=== PATIENT | female | born 1940 | race Caucasian/White ===

== ENCOUNTER → 2017-02-18 15:28 | Outpatient (CLI) | payer MEDICARE, OTHER | END | disposition home or self-care (01) | LOC: D.MAMMO 08:00 | DX: Z12.31 Encounter for screening mammogram for malignant neoplasm of breast (principal) ==

== ENCOUNTER → 2017-08-19 10:29 | Outpatient (CLI) | payer MEDICARE, OTHER | END | disposition home or self-care (01) | LOC: D.MRI 10:29 | DX: M25.562 Pain in left knee (principal) ==

== ENCOUNTER → 2018-02-20 21:53 | Outpatient (CLI) | payer MEDICARE, OTHER | END | disposition home or self-care (01) | LOC: D.MAMMO 11:30 | DX: Z12.31 Encounter for screening mammogram for malignant neoplasm of breast (principal) ==

== ENCOUNTER 2018-03-05 10:48 | Emergency (ER) | payer MEDICARE, OTHER | END 2018-03-05 15:05 | disposition home or self-care (01) | LOC: D.ER 10:48 | DX: S01.81XA Laceration without foreign body of other part of head, initial encounter (principal); W01.0XXA Fall on same level from slipping, tripping and stumbling without subsequent striking against object, initial encounter; Y93.89 Activity, other specified; Y92.019 Unspecified place in single-family (private) house as the place of occurrence of the external cause; S00.83XA Contusion of other part of head, initial encounter; I10 Essential (primary) hypertension ==

== ENCOUNTER → 2018-04-03 23:46 | Outpatient (CLI) | payer MEDICARE, OTHER | END | disposition home or self-care (01) | LOC: D.MAMMO 09:30 | DX: R92.8 Other abnormal and inconclusive findings on diagnostic imaging of breast (principal) ==

== ENCOUNTER → 2018-06-12 06:47 | Outpatient (CLI) | payer MEDICARE, OTHER ==
[~2018-06-12] VITALS: Ht 170.2 cm; Wt 76.0 kg
--- NOTE | ~2018-06-12 | HEMODYNAMI ---
PATIENT:EDWIGE PALACIOS MEDICAL RECORD: [id number] : 38 LOCATION:[facility] ADMISSION DATE: 06/12/18 Generatedon:06/12/20189:37 Patient name: EDWIGE PALACIOS Patient #: [id number] SSN: : 1940 Date of study: 06/12/2018 Page: Of Hemodynamic Procedure Report Patient Data Patient Demographics Procedure consent was obtained First Name: EDWIGE Gender: Female Last Name: SUZANNE : 1940 Middle Initial: NATE Age: 78 year(s) Patient #: [id number] Race: Unknown Additional ID: [id number] Contact details Address: [address] [place] [address] ROAD State: [place] City: [place] Zip code: [address] Past Medical History Allergies Allergen Reaction Date Comments Reported Sulfa drugs 06/12/2018 Admission Admission Data Admission Date: 06/12/2018 Admission Time: 6:47 Procedure Procedure Types Cath Procedure Diagnostic Procedure LHC LHC w/Coronaries Sedation Charges Moderate Sedation up to 45 minutes PCI Procedure Coronary Stent Coronary Stent Initial Coronary Stent Additional Procedure Description Procedure Date Procedure Date: 06/12/2018 Procedure Start Time: 8:40 Procedure End Time: 9:36 Procedure Staff Name Function Rashad Ragland MD Performing Physician Evette Shah RT Monitor Joesph Larry RN Nurse Zen Cody RT Scrub Procedure Data Cath Procedure Fluoroscopy Diagnostic fluoroscopy Total fluoroscopy Time: time: 14.8 min 14.8 min Diagnostic fluoroscopy Total fluoroscopy dose: dose: 1617 mGy 1617 mGy Contrast Material Contrast Material Type Amount (ml) Isovue 300 193 Entry Location Entry Primary Successful Side Size Upsize Upsize Entry Closure Kam ccessful Closure Location (Fr) 1 (Fr) 2 (Fr) Remarks Device Remarks Radial Right 6 Fr Mechanical artery Short Compression Estimated blood loss: 10 ml Diagnostic catheters Device Type Used For End Catheter Placement DIAGNOSTIC Tulio 110cm LV Angiography 5Fr catheter ([id number]) DIAGNOSTIC Tulio 110cm Left Coronary 5Fr catheter ([id number]) Angiography DIAGNOSTIC Tulio 110cm Right Coronary 5Fr catheter (045346) Angiography DIAGNOSTIC AR MOD 5Fr Right Coronary Catheter ([id number]) Angiography Procedure Complications No complications Procedure Medications Medication Administration Route Dosage 0.9% NaCl I.V. 100 ml/hr Oxygen etCO2 Nasal cannula 2 l/min Heparin Flush Bag added to field 2 bags (1000units/500ml NS) Lidocaine 2% added to field 20 Radial Cocktail added to field 1 syringe (Verapomil 2mg/Nitro 400mcg/Heparin 1500units) Versed I.V. 1 mg Fentanyl I.V. 50 mcg Radial Cocktail I.A. 1 syringe (Verapomil 2mg/Nitro 400mcg/Heparin 1500units) Heparin Bolus I.V. 6000 units Versed I.V. 1 mg Nitroglycerin IC/IA I.C. 100 mcg Nitroglycerin IC/IA I.C. 100 mcg Heparin Bolus I.V. 2000 units Nitroglycerin IC/IA I.C. 100 mcg Nitroglycerin IC/IA I.C. 100 mcg Plavix P.O. 300 mg Hemodynamics Rest Heart Rate: 69 (bpm) Pressure Samples Time Site Value (mmHg) Purpose Heart Use Rate(bpm) 8:44 LV 113/6,10 EDP 46 Gradients Valve Time Site Site Mean SEP/DFP Peak To Heart Use 1 2 (mmHg) (sec/min) Peak Rate (mmHg) (bpm) Aortic 8:44 LV AO 71 Snapshots Pre Cath Intra NCS Post Cath Vital Signs Time Heart Resp SPO2 etCO2 NIBP (mmHg) Rhythm Pain Sedation Rate (ipm) (%) (mmHg) Status Level (bpm) 8:25:24 67 23 96 0 149/77(110) NSR 0 (11) 10(A) , No pain 8:31:00 68 17 98 32.9 138/69(110) NSR 0 (11) 10(A) , No pain 8:35:44 67 18 92 0 126/69(94) NSR 0 (11) 9(A) , No pain 8:40:29 64 17 96 38.1 126/70(94) NSR 0 (11) 9(A) , No pain 8:45:14 67 12 94 38.8 118/62(84) NSR 0 (11) 9(A) , No pain 8:49:55 68 15 95 38.9 116/63(89) NSR 0 (11) 10(A) , No pain 8:54:37 68 18 96 38.9 132/67(99) NSR 0 (11) 10(A) , No pain 8:59:22 65 16 97 33.6 123/67(99) NSR 0 (11) 10(A) , No pain 9:04:04 63 14 94 38.1 124/63(98) NSR 0 (11) 9(A) , No pain 9:08:47 65 16 96 38.1 121/63(98) NSR 0 (11) 9(A) , No pain 9:13:30 65 13 96 37.3 125/68(93) NSR 0 (11) 10(A) , No pain 9:18:12 64 18 97 32.8 126/67(102) NSR 0 (11) 10(A) , No pain 9:22:57 64 14 96 25.4 131/66(96) NSR 0 (11) 10(A) , No pain 9:27:44 62 14 96 38.9 138/69(108) NSR 0 (11) 10(A) , No pain 9:32:30 64 27 96 37.3 134/69(108) NSR 0 (11) 10(A) , No pain Medications Time Medication Route Dose Verified Delivered Reason Note s Effectiveness by by 8:27:50 0.9% NaCl I.V. 100 Anurag Anurag Per physician ml/hr Fidencio Nicolas RN RN 8:27:59 Oxygen etCO2 2 l/min Anurag Anurag Per physician Nasal Lorigan Lorezra cannula RN RN 8:28:11 Heparin Flush added 2 bags Anurag Anurag used for Bag to Lorigan Lorigan procedure (1000units/500ml field BARNHART RN NS) 8:28:21 Lidocaine 2% added 20ml Anurag Anurag for local to vial Lorigan Lorigan anesthetic field BARNHART RN 8:28:32 Radial Cocktail added 1 Anurag Anurag used for (Verapomil to syringe Lorigan Lorigan procedure 2mg/Nitro field BARNHART RN 400mcg/Heparin 1500units) 8:32:23 Versed I.V. 1 mg Anurag Anurag for sedation Fidencio Nicolas RN RN 8:32:34 Fentanyl I.V. 50 mcg Anurag Anurag for sedation Fidencio Nicolas RN RN 8:41:11 Radial Cocktail I.A. 1 Anurag Rashad for (Verapomil syringe Fidencio Ragland MD vasodilation 2mg/Nitro RN 400mcg/Heparin 1500units) 8:57:01 Heparin Bolus I.V. 6,000 Anurag Anurag for units Fidencio Nicolas anticoagulation RN RN 9:00:10 Versed I.V. 1 mg Anurag Anurag for sedation Fidencio Nicolas RN RN 9:05:32 Nitroglycerin I.C. 100 mcg Anurag Rashad for IC/IA Fidencio Ragland MD vasodilation RN 9:11:45 Nitroglycerin I.C. 100 mcg Anurag Rashad for IC/IA Fidencio Ragland MD vasodilation RN 9:20:00 Heparin Bolus I.V. 2,000 Anurag Anurag for units Fidencio Nicolas anticoagulation RN RN 9:21:51 Nitroglycerin I.C. 100 mcg Anurag Rashad for IC/IA Fidencio Ragland MD vasodilation RN 9:28:28 Nitroglycerin I.C. 100 mcg Anurag Rashad for IC/IA Fidencio Ragland MD vasodilation RN 9:32:14 Plavix P.O. 300 mg Anurag Anuarg for Fidencio Nicolas antiplatelet RN RN therapy Procedure Log Time Note 8:08:00 Time tracking: Regular hours (M-F 7:00 - 5:00) 8:08:04 Plan of Care:Hemodynamics will remain stable., Cardiac rhythm will remain stable., Comfort level will be maintained., Respiratory function will remain adequate., Patient/ family verbilizes understanding of procedure., Procedure tolerated without complication., Recovers from procedure without complications.. 8:11:10 Joesph Larry RN sent for patient. Start room use. 8:19:11 Patient received from Pre/Post Procedure Room to CCL 1 Alert and oriented. Tansferred to table in Supine position. 8:19:12 Warm blankets applied, and shravan hugger turned on for patient comfort. 8:19:12 Correct patient and procedure confirmed by team. 8:19:14 Signed procedure consent form obtained from patient. 8:19:15 ECG and BP/O2 sat monitors applied to patient. 8:19:16 Full Disclosure recording started 8:24:21 Vital chart was started 8:24:35 H&P Date Dictated: 06/10/2018 Within 30 days and on chart.. 8:24:36 Pre-procedure instructions explained to patient. 8:24:38 Family in patients room. 8:24:40 Patient NPO since Midnight. 8:25:03 Patient allergic to Sulfa drugs 8:25:08 Is the patient allergic to Iodine/contrast media? No. 8:25:09 Is patient on blood thinner?Yes 8:25:13 ACC The patient was administered the following blood thiners within the last 24 hours: ACCPlavix 8:25:15 Patient diabetic? No. 8:25:34 ELIQUIS LAST DOSE: 06/09/2018 8:25:38 Previous problem with sedation/anesthesia? No ? 8:25:41 Snore? No 8:25:42 Sleep apnea? No 8:25:43 Deviated septum? No 8:25:44 Opens mouth fully? Yes 8:25:44 Sticks out tongue? Yes 8:25:46 Airway obstruction? No ? 8:25:49 Dentures? No ? 8:25:51 Pre procedure: right dorsailis pedis pulse 2+ Normal; easily identifiable; not easily obliterated 8:25:53 Modified Suhail's test Ulnar < 7 seconds 8:26:04 Patient pain scale 0/10 ?. 8:26:12 IV patent on arrival in left hand with 0.9% NaCl at KVO. 8:26:14 Lab results completed and on chart. 8:26:20 Right Radial & Right Groin area was prepped with chlora-prep and draped in sterile fashion 8:26:21 Alarms reviewed by R. N. 8:26:21 Sharps counted by scrub and verified by R.N. 8:26:30 Rhythm: sinus rhythm 8:26:32 Baseline sample Acquired. 8:26:39 Use device set Radial Dx or PCI 8:26:40 ACIST Syringe (02461) opened to sterile field. 8:26:40 Medline Cath Pack ([id number]) opened to sterile field. 8:26:41 Bag Decanter (2002) opened to sterile field. 8:26:42 DIAGNOSTIC WIRE .035 260cm J wire (867840) opened to sterile field. 8:26:42 ACIST Hand Control (22902) opened to sterile field. 8:26:43 ACIST Manifold (85427) opened to sterile field. 8:26:45 MBrace Wrist Support ([id number]) opened to sterile field. 8:26:46 SHEATH 6Fr Prelude Radial ([id number]) opened to sterile field. 8:27:50 0.9% NaCl 100 ml/hr I.V. was administered by Anurag Nicolas RN; Per physician; 8:27:59 Oxygen 2 l/min etCO2 Nasal cannula was administered by Anurag Nicolas RN; Per physician; 8:28:11 Heparin Flush Bag (1000units/500ml NS) 2 bags added to field was administered by Anurag Nicolas RN; used for procedure; 8:28:21 Lidocaine 2% 20ml vial added to field was administered by Anurag Nicolas RN; for local anesthetic; 8:28:32 Radial Cocktail (Verapomil 2mg/Nitro 400mcg/Heparin 1500units) 1 syringe added to field was administered by Anurag Nicolas RN; used for procedure; 8:31:51 Final Timeout: patient, procedure, and site verified with staff and physician. All members of the team are in agreement. 8:31:53 Right Radial site verified by team. 8:31:55 Physical assessment completed. ASA score P 2 - A patient with mild systemic disease as per Rashad Ragland MD. 8:31:58 Sedation plan: IV Moderate Sedation Medication:Versed, Fentanyl 8:32:23 Versed 1 mg I.V. was administered by Anurag Nicolas RN; for sedation; 8:32:34 Fentanyl 50 mcg I.V. was administered by Anurag Nicolas RN; for sedation; 8:38:53 Zero performed for pressure channel P1 8:40:03 Procedure started. 8:40:10 Local anesthetic to right radial artery with Lidocaine 2% by Rashad Ragalnd MD.INITIAL ACCESS ONLY 8:41:08 A 6 Fr Short sheath was inserted into the Right Radial artery 8:41:11 Radial Cocktail (Verapomil 2mg/Nitro 400mcg/Heparin 1500units) 1 syringe I.A. was administered by Rashad Ragland MD; for vasodilation; 8:42:19 A DIAGNOSTIC Tulio 110cm 5Fr catheter (434046) was advanced over the wire and used for LV Angiography. 8:43:37 LV gram done using VALIENTE 8:43:39 LV hemodynamics recorded. 8:43:43 Injector settings: Ml/sec: 12, Volume: 8, 8:44:38 A DIAGNOSTIC Tulio 110cm 5Fr catheter (738325) was advanced over the wire and used for Left Coronary Angiography. 8:47:14 A DIAGNOSTIC Tulio 110cm 5Fr catheter (753778) was advanced over the wire and used for Right Coronary Angiography. REMOVED, UNABLE TO CANNULATE 8:48:25 A DIAGNOSTIC AR MOD 5Fr Catheter ([id number]) was advanced over the wire and used for Right Coronary Angiography. 8:50:55 Catheter removed. 8:53:36 Use device set Amazing Hiring PCI 8:54:01 INFLATOR Merit BasixCompak (MY1121) opened to sterile field. 8:54:02 COPILOT Valve Control (4658601) opened to sterile field. 8:54:03 BMW 190cm [place] 2 J wire ([id number]) opened to sterile field. 8:56:47 6 Fr XBLAD 3.5 SH guide catheter was inserted over the wire 8:57:01 Heparin Bolus 6,000 units I.V. was administered by Anurag Nicolas RN; for anticoagulation; 9:00:10 Versed 1 mg I.V. was administered by Anurag Nicolas RN; for sedation; 9:01:10 BMW 190cm [place] 2 J wire ([id number]) opened to sterile field. 9:01:22 BMW TO LAD wire advanced. 9:02:10 BMW TO DIAG wire advanced. 9:05:32 Nitroglycerin IC/IA 100 mcg I.C. was administered by Rashad Ragland MD; for vasodilation; 9:07:10 Inflate balloon Inflation number: 1 A EUPHORA 2.0 x 30 Balloon ([id number]) was prepped and advanced across the Mid LAD, then inflated to 8 NATALIE for 0:05 (min:sec). 9:07:33 Inflation number: 2 The EUPHORA 2.0 x 30 Balloon ([id number]) was reinflated across the Mid LAD, to 10 NATALIE for 0:16 (min:sec). 9:08:18 Balloon removed over the wire. 9:10:30 Inflation number: 1 The EUPHORA 2.0 x 30 Balloon ([id number]) was reinflated across the 1st Diag, to 8 NATALIE for 0:10 (min:sec). 9:10:52 Inflation number: 2 The EUPHORA 2.0 x 30 Balloon ([id number]) was reinflated across the 1st Diag, to 10 NATALIE for 0:12 (min:sec). 9:11:05 Balloon removed over the wire. 9:11:45 Nitroglycerin IC/IA 100 mcg I.C. was administered by Rashad Ragland MD; for vasodilation; 9:15:43 Place stent Inflation Number: 3 A NINFA RX 2.25 x 22 stent ([id number]) was prepped and advanced across the 1st Diag. The stent was deployed at 12 NATALIE for 0:26 (min:sec). 9:16:20 Stent catheter was removed intact over wire. 9:20:00 Heparin Bolus 2,000 units I.V. was administered by Anurag Nicolas RN; for anticoagulation; 9:20:40 Place stent Inflation Number: 3 A NINFA RX 2.25 x 38 stent ([id number]) was prepped and advanced across the Mid LAD. The stent was deployed at 18 NATALIE for 0:23 (min:sec). 9:21:51 Nitroglycerin IC/IA 100 mcg I.C. was administered by Rashad Ragland MD; for vasodilation; 9:24:31 WIRE REMOVED FROM DIAG 9:24:42 LAD WIRE REDIRECTED TO DIAG 9:27:40 The EUPHORA 2.0 x 12 Balloon ([id number]) was advanced and then removed because of failure to cross lesion 9:27:42 Balloon removed over the wire. 9:27:42 Wire removed. 9:28:28 Nitroglycerin IC/IA 100 mcg I.C. was administered by Rashad Ragland MD; for vasodilation; 9:29:13 Guide catheter removed. 9:29:40 Sheath removed intact; hemostasis achieved with Mechanical Compression to the Right Radial artery. 9:29:47 Procedure ended.(Physican Out) 9:29:59 Fluoroscopy time 14.80 minutes. 9:30:05 Flurop Dose total: 1617 9:30:05 Fluoroscopy dose: 1617 mGy 9:30:09 Contrast amount:Isovue 300 193ml. 9:30:10 Sharps counted by scrub and verified by R.N. 9:30:13 TR band inflated with 12cc of air. 9:30:14 Insertion/operative site no bleeding no hematoma. 9:30:20 Post right radial artery:stable, clean and dry 9:30:22 Post Procedure Pulses reassessed and unchanged 9:30:24 Post-procedure physical assessment completed. ASA score P 2 - A patient with mild systemic disease as per Rashad Ragland MD. 9:30:29 Post procedure rhythm: unchanged. 9:30:41 Estimated blood loss: 10 ml 9:30:42 Post procedure instruction explained to patient.Patient verbalizes understanding. 9:30:43 Patient needs reinforcement of post procedure teaching. 9:30:52 Procedure type changed to Cath procedure, Diagnostic procedure, LHC, LHC w/Coronaries, Sedation Charges, Moderate Sedation up to 45 minutes, PCI procedure, Coronary Stent, Coronary Stent Initial, Coronary Stent Additional 9:31:14 TR BAND Standard ([id number]) opened to sterile field. 9:32:14 Plavix 300 mg P.O. was administered by Anurag Nicolas RN; for antiplatelet therapy; 9:34:07 Procedure and supply charges have been captured, reviewed, submitted and are correct. 9:34:13 Procedure Complication : No complications 9:34:16 See physician's report for complete and final results. 9:36:04 Vital chart was stopped 9:36:09 Report given to Pre/Post Procedure Room. 9:36:12 Patient transfered to Pre/Post Procedure Room with Stretcher. 9:36:22 Procedure ended. 9:36:22 Full Disclosure recording stopped 9:36:26 End room use (Document Last) Intervention Summary Intervention Notes Time ActionType Lesion and Equipment Used Action# Pressure Duration Attributes 9:07:10 Inflate Mid LAD EUPHORA 2.0 x 1 8 00:05 balloon 30 Balloon ([id number]) 9:07:33 Reinflate Mid LAD EUPHORA 2.0 x 2 10 00:16 balloon 30 Balloon ([id number]) 9:10:30 Reinflate 1st Diag EUPHORA 2.0 x 1 8 00:10 balloon 30 Balloon ([id number]) 9:10:52 Reinflate 1st Diag EUPHORA 2.0 x 2 10 00:12 balloon 30 Balloon ([id number]) 9:15:43 Place stent 1st Diag NINFA RX 2.25 x 3 12 00:26 22 stent ([id number]) 9:20:40 Place stent Mid LAD NINFA RX 2.25 x 3 18 00:23 38 stent ([id number]) 9:27:40 Discard EUPHORA 2.0 x Balloon 12 Balloon ([id number]) Device Usage Item Name Manufacture Quantity Catalog Number Hospital Part Current Minimal Lot# / Charge Number Stock Stock Serial# Code ACIST Syringe Acist 1 38625 353954 289250 764001 20 (63525) Medical Systems Inc Medline Cath Cardinal 1 [id number] 038777 19989 918642 5 Pack Health ([id number]) Bag Decanter Microtek 1 017601 09128 391938 5 () Medical Inc. DIAGNOSTIC WIRE St Addy 1 874710 184943 560563 924282 30 .035 260cm J wire (563119) ACIST Hand Acist 1 75111 735147 729459 486008 5 Control (70940) [employer] Inc ACIST Manifold Acist 1 69380 016100 966221 574369 5 (82651) [employer] Systems Inc MBrace Wrist Advanced 1 140-0250-00 037614 52437 254929 5 Support Vascular ([id number]) Dynamics SHEATH 6Fr Merit 1 [id number] 669616 336950 040354 5 Prelude Radial Medical ([id number]) DIAGNOSTIC Terumo 1 405023 109478 345486 877262 5 Tulio 110cm 5Fr catheter (252913) DIAGNOSTIC AR Cardinal 1 [id number] 915524 388929 508137 15 MOD 5Fr Health Catheter (792673V) INFLATOR Merit Merit 1 WP4125 606778 900772 515886 15 Bas[facility] HealthcareLeap.it Medical (PJ4100) COPILOT Valve Gibbons 1 7703504 347396 739163 309676 5 Control Vascular (2877484) BMW 190cm Gibbons 2 [id number] 088772 57463 840684 5 [place] 2 J Vascular wire (6266353K) EUPHORA 2.0 x Medtronic 1 [id number] 629904 054719 767254 5 [id number] 30 Balloon ([id number]) NINFA RX 2.25 x Medtronic 1 [id number] 265892 8348412 338969 5 [id number] 22 stent ([id number]) NINFA RX 2.25 x Medtronic 1 [id number] 689117 9385475 124382 5 [id number] 38 stent ([id number]) EUPHORA 2.0 x Medtronic 1 [id number] 466572 576388 635010 5 [id number] 12 Balloon ([id number]) TR BAND Terumo 1 [id number] 301188 580825 260405 40 Standard ([id number]) Signature Audit Bryan Stage Time Signature Unsigned Intra-Procedure 06/12/2018 Evette 9:36:49 AM Counts RT(R) Signatures Monitor : Evette Signature : Counts RT Date : Time : [place] [address] [place] [address]
[~2018-06-12 06:47] MED LIST: ALEVE220 MG PO; BAYER CHEWABLE81 MG PO; ELIQUIS2.5 MG PO; LEVOXYL25 MCG PO; LIPITOR40 MG PO; LOPRESSOR25 MG PO; NIFEDIPINE ER60 MG PO; PACERONE200 MG PO; PLAVIX75 MG PO; VITAMIN D31000 UNI2 PO
[2018-06-12 07:16] VITALS: BP 152/70; Ht 170.2 cm; Wt 76.0 kg
[2018-06-12 07:24] LABS: BASOPHILS 2.4 % (0-2); EOSINOPHILS 2.9 % (0-7); HEMATOCRIT 38.7 % (36.0-48.0); IMMATURE GRANULOCYTES 0.5 % (0-5); LYMPHOCYTES 33.1 % (15-50); MCH 30.5 pg (26.0-34.0); MCHC 33.6 g/dL (31.0-37.0); MCV 90.8 fL (80.0-100.0); MEAN PLATELET VOLUME 10.6 fL (7.4-10.4); MONOCYTES 9.1 % (2-11); PLATELET COUNT 189 10x3/uL (130-400); RBC 4.26 10x6/uL (4.00-5.40); RDW 12.8 % (11.5-14.5); WBC 6.3 10x3/uL (4.8-10.8)
[2018-06-12 07:30] LABS: ANION GAP 14.3 mmol/L (8-16); CALCIUM 9.1 mg/dL (8.5-10.1); CARBON DIOXIDE 28.7 mmol/L (21.0-32.0); CREATININE - SERUM 1.1 mg/dL (0.6-1.3)
== END | disposition home or self-care (01) ==
LOC: D.CATH 06:47
PROVIDERS: Internal Medicine Cardiovascular Disease
DX: I25.110 Atherosclerotic heart disease of native coronary artery with unstable angina pectoris (principal); I10 Essential (primary) hypertension
CPT/HCPCS: 93458; C9600; C9601

== ENCOUNTER 2018-06-16 07:39 | Outpatient (CLI) | payer MEDICARE, OTHER ==
[~2018-06-16] VITALS: Ht 170.2 cm; Wt 75.9 kg
--- NOTE | ~2018-06-16 | HEMODYNAMI ---
PATIENT:EDWIGE PALACIOS MEDICAL RECORD: [id number] : 38 LOCATION:[facility] ADMISSION DATE: 06/16/18 Generatedon:06/16/201810:45 Patient name: EDWIGE PALACIOS Patient #: [id number] SSN: : 1940 Date of study: 06/16/2018 Page: Of Hemodynamic Procedure Report Patient Data Patient Demographics Procedure consent was obtained First Name: EDWIGE Gender: Female Last Name: SUZANNE : 1940 [facility] Initial: NATE Age: 78 year(s) Patient #: [id number] Race: Unknown Additional ID: [id number] Contact details Address: [address] [place] [address] ROAD State: [place] City: [place] Zip code: [address] Past Medical History Allergies Allergen Reaction Date Comments Reported Sulfa drugs 06/12/2018 Sulfa drugs 06/16/2018 Admission Admission Data Admission Date: 06/16/2018 Admission Time: 7:39 Procedure Procedure Types Cath Procedure Diagnostic Procedure Sedation Charges Moderate Sedation up to 30 minutes PCI Procedure Coronary Stent Coronary Stent Initial PTCA PTCA Initial Procedure Description Procedure Date Procedure Date: 06/16/2018 Procedure Start Time: 10:22 Procedure End Time: 10:42 Procedure Staff Name Function Rashad Medina MD Performing Physician Elizabeth Woods RT Monitor Belle Curtis RT Scrub Joesph Larry RN Nurse Procedure Data Cath Procedure Fluoroscopy Diagnostic fluoroscopy Total fluoroscopy Time: 4.2 time: 4.2 min min Diagnostic fluoroscopy Total fluoroscopy dose: 662 dose: 662 mGy mGy Contrast Material Contrast Material Type Amount (ml) Isovue 300 76 Entry Location Entry Primary Successful Side Size Upsize Upsize Entry Closure Succes sful Closure Location (Fr) 1 (Fr) 2 (Fr) Remarks Device Remarks Femoral Right 6 Fr Exoseal artery Short Estimated blood loss: 10 ml Procedure Complications No complications Procedure Medications Medication Administration Route Dosage Oxygen NC 2 l/min Lidocaine 2% added to field 20 Heparin Flush Bag added to field 2 bags (1000units/500ml NS) 0.9% NaCl I.V. 100 ml/hr Versed I.V. 1 mg Fentanyl I.V. 25 mcg Heparin Bolus I.V. 7000 units Hemodynamics Rest Heart Rate: 54 (bpm) Snapshots Pre Cath Intra NCS Post Cath Vital Signs Time Heart Resp SPO2 etCO2 NIBP (mmHg) Rhythm Pain Sedation Rate (ipm) (%) (mmHg) Status Level (bpm) 10:13:23 51 23 97 33.8 132/65(106) NSR 0 (11) 10(A) , No pain 10:17:37 52 34 94 33 119/66(98) NSR 0 (11) 10(A) , No pain 10:21:48 53 19 93 0 121/65(98) NSR 0 (11) 9(A) , No pain 10:26:01 51 15 96 32.3 123/64(90) NSR 0 (11) 9(A) , No pain 10:30:13 51 19 94 0 118/65(97) NSR 0 (11) 9(A) , No pain 10:34:22 54 15 93 0 110/64(92) NSR 0 (11) 9(A) , No pain 10:38:30 53 14 94 33.7 121/63(95) NSR 0 (11) 10(A) , No pain 10:42:42 51 10 98 30 119/65(93) NSR 0 (11) 10(A) , No pain Medications Time Medication Route Dose Verified Delivered Reason Notes Effectiveness by by 10:11:42 Oxygen NC 2 Rashad Buffie used for l/min Obie may MD 10:11:48 Lidocaine 2% added 20ml Rashad Rashad for local to vial Obie Medina MD anesthetic field ALMENDAREZ 10:11:54 Heparin Flush added 2 Rashad Rashad used for Bag to bags Obie Medina MD procedure (1000units/500ml field ALMENDAREZ NS) 10:12:03 0.9% NaCl I.V. 100 Rashad Buffie Per physician ml/hr Obie Larry RN, MD 10:16:58 Versed I.V. 1 mg Rashad Buffie for sedation Obie Larry RN, MD 10:17:04 Fentanyl I.V. 25 Rashad Buffie for sedation mcg Obie Larry RN, MD 10:29:36 Heparin Bolus I.V. 7000 Rashad Pink for [facility] ed units Obie Larry RN anticoagulation with dr MD medina Procedure Log Time Note 9:53:52 Joesph Larry RN sent for patient. Start room use. 9:53:53 Time tracking: Regular hours (M-F 7:00 - 5:00) 9:53:58 Plan of Care:Hemodynamics will remain stable., Cardiac rhythm will remain stable., Comfort level will be maintained., Respiratory function will remain adequate., Patient/ family verbilizes understanding of procedure., Procedure tolerated without complication., Recovers from procedure without complications.. 9:54:17 H&P Date Dictated: 06/10/2018 Within 30 days and on chart., H&P Addendum completed by physician on day of procedure. (MUST COMPLETE FOR ALL OUTPATIENTS). 9:54:28 Patient allergic to Sulfa drugs 10:01:47 Patient received from Pre/Post Procedure Room to [facility] 2 Alert and oriented. Tansferred to table in Supine position. 10:01:49 Warm blankets applied, and shravan hugger turned on for patient comfort. 10:01:49 Correct patient and procedure confirmed by team. 10:01:50 Signed procedure consent form obtained from patient. 10:01:52 ECG and BP/O2 sat monitors applied to patient. 10:11:42 Oxygen 2 l/min NC was administered by Joesph Larry RN; used for procedure; 10:11:48 Lidocaine 2% 20ml vial added to field was administered by Rashad Medina MD; for local anesthetic; 10:11:54 Heparin Flush Bag (1000units/500ml NS) 2 bags added to field was administered by Rashad Medina MD; used for procedure; 10:12:03 0.9% NaCl 100 ml/hr I.V. was administered by Joesph Larry RN; Per physician; 10:12:09 Vital chart was started 10:14:05 Baseline sample Acquired. 10:14:06 Full Disclosure recording started 10:14:06 Pre-procedure instructions explained to patient. 10:14:07 Pre-op teaching completed and patient verbalized understanding. 10:14:08 Family in patients room. 10:14:10 Patient NPO since Midnight. 10:14:11 Is the patient allergic to Iodine/contrast media? No. 10:14:12 Is patient on blood thinner?Yes 10:14:19 PRE LOADED PLAVIX 10:14:21 Patient diabetic? No. 10:14:23 Patient not . Patient is over age 55. 10:14:26 Previous problem with sedation/anesthesia? No ? 10:14:27 Snore? No 10:14:28 Sleep apnea? No 10:14:28 Deviated septum? No 10:14:29 Opens mouth fully? Yes 10:14:30 Sticks out tongue? Yes 10:14:31 Airway obstruction? No ? 10:14:33 Dentures? No ? 10:14:36 Pre procedure: right dorsailis pedis pulse 2+ Normal; easily identifiable; not easily obliterated 10:14:38 Patient pain scale 0/10 ?. 10:14:42 IV patent on arrival in right antecubital with 0.9% NaCl at [facility]. 10:14:48 Right Radial & Right Groin area was prepped with chlora-prep and draped in sterile fashion 10:14:49 Alarms reviewed by R. N. 10:14:49 Sharps counted by scrub and verified by R.N. 10:15:07 Use device set CATH PACK 10:15:08 ACIST Syringe (78528) opened to sterile field. 10:15:09 ACIST Hand Control (39248) opened to sterile field. 10:15:09 ACIST Manifold (20190) opened to sterile field. 10:15:10 Medline Cath Pack ([id number]) opened to sterile field. 10:15:10 Bag Decanter (2002S) opened to sterile field. 10:15:11 DIAGNOSTIC WIRE .035 260cm J wire (078904) opened to sterile field. 10:15:34 MICROPUNCTURE 4FR Cook (V23899) opened to sterile field. 10:15:34 SHEATH 6FR Canal [place] (WJS228) opened to sterile field. 10:15:35 INFLATOR Merit BasixCompak (QI9306) opened to sterile field. 10:15:35 BMW 190cm Huron 2 J wire ([id number]) opened to sterile field. 10:15:36 COPILOT Valve Control (3960563) opened to sterile field. 10:15:50 --------ALL STOP TIME OUT------ 10:15:50 Final Timeout: patient, procedure, and site verified with staff and physician. All members of the team are in agreement. 10:15:53 Right groin site verified by team. 10:15:55 Physical assessment completed. ASA score P 2 - A patient with mild systemic disease as per Rashad Medina MD. 10:15:58 Sedation plan: IV Moderate Sedation Medication:Versed, Fentanyl 10:16:58 Versed 1 mg I.V. was administered by Joesph Larry RN; for sedation; 10:17:04 Fentanyl 25 mcg I.V. was administered by Joesph Larry RN; for sedation; 10:19:12 Zero performed for pressure channel P1 10:22:10 Procedure started. 10::57 Local anesthetic to right femoral artery with Lidocaine 2% by Rashad Medina MD.INITIAL ACCESS ONLY 10:23:14 GUIDE 6FR XBLAD 4.0 catheter ([id number]) opened to sterile field. 10:23:53 Access obtained with 4Fr micropunture. 10:24:56 A 6 Fr Short sheath was inserted into the Right Femoral artery 10:25:22 6 Fr XBLAD 4 guide catheter was inserted over the wire 10:29:36 Heparin Bolus 7000 units I.V. was administered by Joesph Larry RN; for anticoagulation; verified with dr medina 10::58 Wire advanced across lesion. 10:31:40 Place stent Inflation Number: 1 A NINFA RX 2.5 x 22 stent ([id number]) was prepped and advanced across the Mid CX. The stent was deployed at 14 NATALIE for 0:10 (min:sec). 10:32:14 Stent catheter was removed intact over wire. 10:32:33 Wire redirected to RAMUS. 10:35:16 Inflate balloon Inflation number: 1 A EUPHORA 1.5 x 20 Balloon ([id number]) was prepped and advanced across the Ramus, then inflated to 8 NATALIE for 0:10 (min:sec). 10:35:34 Inflation number: 2 The EUPHORA 1.5 x 20 Balloon ([id number]) was reinflated across the Ramus, to 8 NATALIE for 0:10 (min:sec). 10:35:52 Balloon removed over the wire. 10:36:53 Wire removed. 10:37:17 Guide catheter removed. 10:37:40 EXOSEAL 6Fr (EX600) opened to sterile field. 10:37:50 Sheath removed intact; hemostasis achieved with Exoseal to the Right Femoral artery. 10:38:35 Procedure ended.(Physican Out) 10:38:51 Fluoroscopy time 04.20 minutes. 10:38:55 Flurop Dose total: 662 10:38:55 Fluoroscopy dose: 662 mGy 10:38:59 Contrast amount:Isovue 300 76ml. 10:39:00 Sharps counted by scrub and verified by R.N. 10:39:04 Post-op/insertion site Right Femoral artery dressed using a 4 x 4 and Tegaderm. 10:39:07 Post right femoral artery:stable, soft, clean and dry 10:39:12 Post-procedure physical assessment completed. ASA score P 2 - A patient with mild systemic disease as per Rashad Medina MD. 10:39:16 Post procedure rhythm: sinus bradycardia 10:39:18 Estimated blood loss: 10 ml 10:39:19 Post procedure instruction explained to patient.Patient verbalizes understanding. 10:39:19 Patient needs reinforcement of post procedure teaching. 10:39:55 Procedure type changed to Cath procedure, Diagnostic procedure, Sedation Charges, Moderate Sedation up to 30 minutes, PCI procedure, Coronary Stent, Coronary Stent Initial, PTCA, PTCA Initial 10:41:47 Procedure and supply charges have been captured, reviewed, submitted and are correct. 10:41:50 Procedure Complication : No complications 10:41:59 Vital chart was stopped 10:41:59 See physician's report for complete and final results. 10:42:01 Report given to Pre/Post Procedure Room. 10:42:03 Patient transfered to Pre/Post Procedure Room with Bed. 10:42:05 Procedure ended. 10:42:05 Full Disclosure recording stopped 10:42:08 End room use (Document Last) Intervention Summary Intervention Notes Time ActionType Lesion and Equipment Used Action# Pressure Duration Attributes 10:31:40 Place stent Mid CX NINFA RX 2.5 x 1 14 00:10 22 stent ([id number]) 10:35:16 Inflate Ramus EUPHORA 1.5 x 1 8 00:10 balloon 20 Balloon ([id number]) 10:35:34 Reinflate Ramus EUPHORA 1.5 x 2 8 00:10 balloon 20 Balloon ([id number]) Device Usage Item Name Manufacture Quantity Catalog Hospital Part Current [facility] Lot# / Number Charge Number Stock Stock Serial# Code ACIST Syringe Acist 1 44574 574739 732805 345882 20 (05357) Medical Systems Inc ACIST Hand Acist 1 31777 238583 336789 044314 5 Control Medical (08055) Systems Inc ACIST Manifold Acist 1 45834 742596 655700 486780 5 (83780) Medical Systems Inc Medline Cath Cardinal 1 [id number] 436122 79034 825432 5 Pack Health ([id number]) Bag Decanter Microtek 1 2001S 363401 68211 799227 5 (2001S) Medical Inc. DIAGNOSTIC St Addy 1 645830 971625 201537 820000 30 WIRE .035 260cm J wire (838932) MICROPUNCTURE HutGrip Medical 1 C48812 682504 625692 196750 5 4FR Cook (T04063) SHEATH 6FR Terumo 1 FGY084 012487 320105 993155 40 Canal [place] (AHJ662) INFLATOR Merit Merit 1 RU5105 206183 505640 558239 15 BasixCompak Medical (SN0296) BMW 190cm Gibbons 1 [id number] 172423 38435 529359 5 [place] 2 J Vascular wire ([id number]) COPILOT Valve Gibbons 1 7763383 086314 832051 329777 5 Control Vascular (5641756) GUIDE 6FR Cardinal 1 [id number] 098882 977582 391576 3 XBLAD 4.0 Health catheter (55882864) NINFA RX 2.5 x Medtronic 1 [id number] 721896 7937113 552576 5 [id number] 22 stent ([id number]) EUPHORA 1.5 x Medtronic 1 [id number] 587925 643290 242176 5 [id number] 20 Balloon ([id number]) EXOSEAL 6Fr Cardinal 1 EX600 794108 553491 852952 10 (EX600) Health Signature Audit Jackson Stage Time Signature Unsigned Intra-Procedure 06/16/2018 Elizabeth Woods 10:44:45 AM RT(R) Signatures Monitor : Elizabeth Woods Signature : RT Date : Time : [address] [place] [address]
[2018-06-16 08:35] VITALS: BP 132/65; Ht 170.2 cm; Wt 75.9 kg
[2018-06-16 08:52] LABS: BASOPHILS 1.1 % (0-2); EOSINOPHILS 2.2 % (0-7); HEMATOCRIT 36.2 % (36.0-48.0); HEMOGLOBIN 12.2 g/dL (12-16); IMMATURE GRANULOCYTES 0.3 % (0-5); MCH 30.9 pg (26.0-34.0); MCHC 33.7 g/dL (31.0-37.0); MCV 91.6 fL (80.0-100.0); MEAN PLATELET VOLUME 10.7 fL (7.4-10.4); MONOCYTES 7.9 % (2-11); NEUTROPHILS 63.5 % (40-80); PLATELET COUNT 173 10x3/uL (130-400); RBC 3.95 10x6/uL (4.00-5.40); RDW 12.6 % (11.5-14.5); WBC 6.4 10x3/uL (4.8-10.8)
[2018-06-16 09:00] LABS: ANION GAP 9.4 mmol/L (8-16); CALCIUM 8.8 mg/dL (8.5-10.1); CARBON DIOXIDE 27.5 mmol/L (21.0-32.0); CREATININE - SERUM 1.1 mg/dL (0.6-1.3); POTASSIUM - SERUM 3.9 mmol/L (3.5-5.1)
== END 2018-06-16 16:10 ==
LOC: D.CATH 07:39
PROVIDERS: Internal Medicine Cardiovascular Disease
DX: I25.10 Atherosclerotic heart disease of native coronary artery without angina pectoris (principal); Z01.812 Encounter for preprocedural laboratory examination
CPT/HCPCS: 92920; C9600

== ENCOUNTER → 2018-07-02 17:57 | Outpatient (CLI) | payer MEDICARE, OTHER ==
[2018-06-16 08:35] VITALS: BMI 26.2
[2018-07-02 20:32] LABS: CHOL - HDL RATIO 1.9 ratio (2.3-4.1); LDL-HDL RATIO 0.7 ratio (1.5-3.5)
== END | disposition home or self-care (01) ==
LOC: D.LABREF 17:57
PROVIDERS: Internal Medicine Cardiovascular Disease
DX: E78.5 Hyperlipidemia, unspecified (principal)

== ENCOUNTER → 2018-11-26 17:17 | Outpatient (CLI) | payer MEDICARE, OTHER ==
[2018-06-16 08:35] VITALS: BMI 26.2
[2018-11-26 18:16] LABS: CHOL - HDL RATIO 2.2 ratio (2.3-4.1); LDL-HDL RATIO 0.9 ratio (1.5-3.5)
== END | disposition home or self-care (01) ==
LOC: D.LABREF 17:17
PROVIDERS: Internal Medicine Interventional Cardiology
DX: E78.5 Hyperlipidemia, unspecified (principal)

== ENCOUNTER → 2019-03-02 18:42 | Outpatient (CLI) | payer MEDICARE, OTHER | END | disposition home or self-care (01) | LOC: D.MAMMO 18:42 | DX: Z12.31 Encounter for screening mammogram for malignant neoplasm of breast (principal) ==

== ENCOUNTER 2019-06-15 11:30 | Outpatient (CLI) | payer MEDICARE, OTHER ==
[2018-06-16 08:35] VITALS: BMI 26.2
== END 2019-06-15 12:00 | disposition home or self-care (01) ==
LOC: D.MAMMO 11:30
PROVIDERS: ATTEND Family Medicine
DX: R92.2 Inconclusive mammogram (principal)

== ENCOUNTER → 2019-06-25 09:15 | Outpatient (CLI) | payer MEDICARE, OTHER ==
[2018-06-16 08:35] VITALS: BMI 26.2
--- NOTE | 2019-06-28 13:55 | EC ---
PATIENT:EDWIGE PALACIOS DATE OF SERVICE: 06/25/19 SEX: F MEDICAL RECORD: [id number] DATE OF : 38 [facility] AGE [facility] PATIENT: 79 ADMISSION DATE: 06/25/19 REFERRING PHYSICIAN: INTERPRETING PHYSICIAN: ULISSES JOE MD ECHOCARDIOGRAM REPORT ECHO CHARGES 4 ECHO COMPLETE Date: 06/25/19 CLINICAL DIAGNOSIS: ATRIAL FIB HX CAD ECHOCARDIOGRAPHIC MEASUREMENTS (adult normal given) AC root (d.<3.7cm) 3.3 cm LV Septum d (<1.2 cm> 1.3 cm Valve Excursion 1.7 cm LV Septum (systole) 1.8 cm Left Atria (s.<4.0cm> 4.5 cm LVPW d(<1.2cm) 1.5 cm RV (d.<2.3cm) 3.3 cm LVPW (sytole) 1.7 cm LV diastole(<5.6CM) 5.7 cm MV E-F(>70mm/sec) cm LV systole 3.6 cm LVOT Diameter 1.8 cm MV exc.(>10mm) 1.7 cm Est.ejection fraction (50-75%) % DOPPLER: LVIT cm/sec A cm/sec E cm/sec LA cm/sec RVSP 38 mmHg LVOT 120 cm/sec AOP1/2T m/s Asc. Ao 163 cm/sec RVOT 69 cm/sec RA cm/sec PA 108 cm/sec AV Gradient Peak 10.67mmHg AV Mean 5.56 mmHg AV Area 1.7 cm MV Gradient Peak 2.52 mmHg MV Mean 0.87 mmHg MV Area cm COMMENTS: Medical Case Manager: 2 FAMILIA KRUSE Home Aide: 3 Dr. Mcghee TAPE# PACS Pericardial Effusion N DATE OF SERVICE: 06/25/2019 Adequate 2-D echo, color-flow and spectral Doppler, and M-mode. LVH is present. LV internal dimensions are normal. Wall motion is normal. EF is 55%. Aortic valve is tricuspid. No evidence of stenosis by Doppler interrogation. Left atrium is dilated at 4.5 cm. Mitral valve shows no prolapse. Trace MR. Right-sided chambers are normal. Trace TR. TRANSINT:[id number] Voice Confirmation ID: [id number] DOCUMENT ID: [id number] ECHOCARDIOGRAM REPORT [id number] EDWIGE PALACIOS GREGORY A MD at 1355 CC: [id number] DICTATION DATE: 06/28/19 1312 ENHANCED ENVIRONMENTAL OPERATOR: 06/28/19 1326 DEP CLI 06/25/19 [address] 06[address] [place] [address]
== END | disposition home or self-care (01) ==
LOC: D.HCCARDIO 09:15
PROVIDERS: ATTEND Internal Medicine Interventional Cardiology
DX: I48.91 Unspecified atrial fibrillation (principal)

== ENCOUNTER 2020-03-31 | Inpatient (IN) | payer MEDICARE, OTHER ==
[~2020-03-31] VITALS: Ht 170.2 cm; Wt 84.1 kg
--- NOTE | ~2020-03-31 | HEMODYNAMI ---
PATIENT:EDWIGE PALACIOS MEDICAL RECORD: [id number] : 38 LOCATION:[facility] D.2114 [facility]# [id number] ADMISSION DATE: 03/31/20 Generatedon:04/01/202010:53 Patient name: EDWIGE PALACIOS Patient #: [id number] : 1940 Date of study: 04/01/2020 Page: Of Hemodynamic Procedure Report Patient Data Patient Demographics Procedure consent was obtained First Name: EDWIGE Gender: Female Last Name: SUZANNE : 1940 [facility] Initial: NATE Age: 79 year(s) Patient #: [id number] Race: Unknown SSN: [id number] Additional ID: [id number] Contact details Address: [address] [place] [address] ROAD State: [place] City: [place] Zip code: [address] Past Medical History Allergies Allergen Reaction Date Comments Reported Sulfa drugs 06/12/2018 Sulfa drugs 06/16/2018 Sulfa drugs 04/01/2020 Admission Admission Data Admission Date: 03/31/2020 Admission Time: 1:09 Arrival Date: 04/01/2020 Arrival Time: 0:00 Admit Source: Other Insurance Payor: Medicare Room #: D.2114 [facility] #: [id number] Height (in.): 66.93 BSA: 1.89 (m2) Height (cm.): 170 BMI: 26.99 (kg/m2) Weight (lbs.): 171.96 Weight (kg.): 78 Lab Results Lab Result Date: 04/01/2020 Lab Result Time: 0:00 Biochemistry Name Units Result Min Max BUN mg/dl 17 --(---*)-- 7 18 Creatinine mg/dl 1.2 --(---*)-- 0.6 1.3 Procedure Procedure Types Cath Procedure Diagnostic Procedure [facility] w/Coronaries Sedation Charges Moderate Sedation up to 45 minutes PCI Procedure Coronary Stent Coronary Stent Initial Hemochron ACT Test Procedure Description Procedure Date Procedure Date: 04/01/2020 Procedure Start Time: 9:41 Procedure End Time: 10:49 Procedure Staff Name Function Tristan Anaya MD Performing Physician Belle Curtis RT Monitor Erica Aiken RN Nurse Noris Musa RT Scrub Indication Chest discomfort Procedure Data Cath Procedure Fluoroscopy Diagnostic fluoroscopy Total fluoroscopy Time: time: 13.2 min 13.2 min Diagnostic fluoroscopy Total fluoroscopy dose: dose: 1360 mGy 1360 mGy Contrast Material Contrast Material Type Amount (ml) Isovue 300 131 Entry Location Entry Primary Successful Side Size Upsize Upsize Entry Closure Succes sful Closure Location (Fr) 1 (Fr) 2 (Fr) Remarks Device Remarks Femoral Left 5 Fr 6 Fr Exoseal artery Short Estimated blood loss: 10 ml Diagnostic catheters Device Type Used For End Catheter Placement MULTIPACK JL 4.0 5Fr Procedure catheter MULTIPACK 3DRC 5Fr Procedure catheter MULTIPACK Pigtail 5 Fr Ventriculography catheter Procedure Complications No complications Procedure Medications Medication Administration Route Dosage 0.9% NaCl I.V. 100 ml/hr Oxygen etCO2 Nasal cannula 2 l/min Lidocaine 2% added to field 20 Heparin Flush Bag added to field 2 bags (1000units/500ml NS) Versed I.V. 2 mg Fentanyl 50 mcg Heparin Bolus I.V. 7000 units Integrilin (Bolus I.V. 6.8 ml 2mg/ml) Integrilin (Bolus wasted 3.2 ml 2mg/ml) Plavix P.O. 600 mg Nitroglycerin IC/IA I.C. 100 mcg Fentanyl 50 mcg Integrilin Drip I.V. drip 3.1 ml/hr (75mg/100ml) Hemodynamics Rest BSA: 1.89 (m2) O2 Consumption: Estimated: 179.6 (ml/min) O2 Consumption indexed: Estimated:95.03 (ml/min/m) Heart Rate: 84 (bpm) Pressure Samples Time Site Value (mmHg) Purpose Heart Use Rate(bpm) 10:07 LV 124/26,38 Snapshot 80 10:08 AO 126/69(94) Pullback 80 10:08 LV 127/-12,40 Pullback 80 Gradients Valve Time Site 1 Site 2 Mean SEP/DFP Peak To Heart Use (mmHg) (sec/min) Peak Rate (mmHg) (bpm) Aortic 10:08 LV AO 30 17 1 80 127/-12,40 126/69(94) Calculations Valve P-P Mean Valve Index Valve Source Name Gradient Area Flow (cm2) Aortic 1 30 1 30 Snapshots Pre Cath Intra NCS Post Cath Vital Signs Time Heart Resp SPO2 etCO2 NIBP (mmHg) Rhythm Pain Status Sedation Rate (ipm) (%) (mmHg) Level (bpm) 9:29:47 83 16 89 33.3 136/77(105) NSR 0 (11) , No 10(A) pain 9:34:01 84 16 89 34 127/71(101) NSR 0 (11) , No 10(A) pain 9:38:15 83 13 89 9.8 116/70(92) NSR 0 (11) , No 10(A) pain 9:42:29 80 12 90 12.8 114/64(91) NSR 0 (11) , No 8(A) pain 9:46:41 79 12 90 13.6 110/64(88) NSR 0 (11) , No 8(A) pain 9:50:53 79 13 91 15.1 109/64(85) NSR 0 (11) , No 8(A) pain 9:55:04 80 14 92 12.1 110/65(89) NSR 0 (11) , No 8(A) pain 9:59:14 80 15 93 14.3 118/69(93) NSR 0 (11) , No 8(A) pain 10:03:26 79 15 93 12.1 117/70(98) NSR 0 (11) , No 8(A) pain 10:07:40 88 16 94 11.3 116/69(92) NSR 0 (11) , No 8(A) pain 10:11:54 78 15 94 13.6 117/67(94) NSR 0 (11) , No 8(A) pain 10:16:06 78 18 93 13.6 117/70(99) NSR 0 (11) , No 8(A) pain 10:20:20 76 18 92 15.9 126/71(100) NSR 4 (11) , 9(A) Distressing 10:24:30 76 13 94 13.6 120/73(97) NSR 0 (11) , No 8(A) pain 10:28:46 74 13 94 34 117/67(98) NSR 0 (11) , No 8(A) pain 10:33:00 74 12 94 32.5 119/69(99) NSR 0 (11) , No 8(A) pain 10:37:12 76 13 92 32.5 126/75(103) NSR 0 (11) , No 8(A) pain 10:41:28 77 14 93 15.1 133/73(110) NSR 0 (11) , No 8(A) pain 10:46:27 77 16 94 12.8 Measuring NSR 0 (11) , No 8(A) pain 10:46:33 76 16 94 14.3 133/60(105) NSR 0 (11) , No 9(A) pain Medications Time Medication Route Dose Verified Delivered Reason Notes Effectiveness by by 9:28:49 0.9% NaCl I.V. 100 Tristan Erica used for ml/hr Héctor Aiken pump servicer supervisor 9:28:55 Oxygen etCO2 2 Tristan Erica used for Nasal l/min Héctor Aiken procedure cannula RN 9:29:02 Lidocaine 2% added 20ml Tristan Tristan for local to vial Héctor Anaya MD anesthetic field 9:29:06 Heparin Flush added 2 Tristan Tristan used for Bag to bags Héctor Anaya MD procedure (1000units/500ml field NS) 9:39:09 Versed I.V. 2 mg Tristan Erica for sedation Héctor Aiken RN 9:39:20 Fentanyl 50 Tristan Erica for sedation mcg Héctor Aiken RN 10:06:42 Heparin Bolus I.V. 7000 Tristan Erica for verif ied units Héctor Aiken anticoagulation with Dr. OBEY Anaya 10:06:55 Integrilin I.V. 6.8 Tristan Erica for (Bolus 2mg/ml) ml Héctor Aiken antiplatelet RN therapy 10:07:05 Integrilin wasted 3.2 Tristan Erica for (Bolus 2mg/ml) ml Héctor Aiken antiplatelet RN therapy 10:07:11 Plavix P.O. 600 Tristan Erica for mg Héctor Aiken antiplatelet RN therapy 10:22:14 Nitroglycerin I.C. 100 Tristan Tristan for IC/IA mcg Héctor Anaya MD vasodilation 10:22:46 Fentanyl 50 Tristan Tristan for sedation [facility] H[place]ctor Anaya MD 10:46:44 Integrilin Drip I.V. 3.1 Tristan Erica for (75mg/100ml) drip ml/hr Héctor Aiken antiplatelet RN therapy Procedure Log Time Note 9:11:30 Admit Source: Other 9:11:34 Arrival Date: 04/01/2020 12:00:00 AM 9:12:00 Insurance Payor : Medicare 9:12:04 Patient Height : 66.93 inches 9:12:08 Patient Weight : 171.96 lbs 9:12:59 Lab Result : BUN 17 mg/dl 9:12:59 Lab Result : Creatinine 1.2 mg/dl 9:13:40 Indication : Chest discomfort 9:13:49 Procedure Status Urgent Heart Cath (IP). 9:13:53 Erica Aiken RN sent for patient. Start room use. 9:13:55 Time tracking: Call back (After hours or weekends) 9:14:01 Plan of Care:Hemodynamics will remain stable., Cardiac rhythm will remain stable., Comfort level will be maintained., Respiratory function will remain adequate., Patient/ family verbilizes understanding of procedure., Procedure tolerated without complication., Recovers from procedure without complications.. 9:14:58 3a) 45-59 Moderately reduced kidney function. 9:15:22 Maximum allowable contrast dose (3.7 X eGFR X 0.75)226 ml. 9:24:53 Patient received from Med II to CCL 1 Alert and oriented. Tansferred to table in Supine position. 9:24:55 Warm blankets applied, and shravan hugger turned on for patient comfort. 9:24:56 Correct patient and procedure confirmed by team. 9:24:57 Signed procedure consent form obtained from patient. 9:25:50 Signed procedure consent form obtained from patient. 9:25:55 H&P Date Dictated: 03/31/2020 ER History on chart.. 9:25:56 Pre-procedure instructions explained to patient. 9:25:56 Pre-op teaching completed and patient verbalized understanding. 9:25:57 Family AVAILABLE WITH PHONE CALL 9:26:10 Patient NPO since Midnight. 9:27:26 Patient allergic to Sulfa drugs 9:27:28 Is the patient allergic to Iodine/contrast media? No. 9:27:31 Is patient on blood thinner?No 9:27:42 PATIENT GIVEN [facility] IN HOSPITAL 9:27:46 Patient diabetic? No. 9:27:48 Patient not . Patient is over age 55. 9:27:50 Previous problem with sedation/anesthesia? No ? 9:27:51 Snore? Yes 9:27:52 Sleep apnea? No 9:27:53 Deviated septum? No 9:27:54 Opens mouth fully? Yes 9:27:56 Sticks out tongue? Yes 9:27:59 Airway obstruction? No ? 9:28:00 Dentures? No ? 9:28:05 Pre procedure: right dorsailis pedis pulse 1+ Palpable, but thready & weak; easily obliterated 9:28:08 Patient pain scale 0/10 ?. 9:28:12 IV patent on arrival in left forearm with 0.9% NaCl at [facility]. 9:28:15 Lab results completed and on chart. 9:28:19 Right groin area was prepped with chlora-prep and draped in sterile fashion 9:28:21 Alarms reviewed by R. N. 9:28:21 Sharps counted by scrub and verified by R.N. 9:28:42 Vital chart was started 9:28:49 0.9% NaCl 100 ml/hr I.V. was administered by Erica Aiken RN; used for procedure; Verbal order read back and verified. 9:28:55 Oxygen 2 l/min etCO2 Nasal cannula was administered by Erica Aiken RN; used for procedure; Verbal order read back and verified. 9:29:02 Lidocaine 2% 20ml vial added to field was administered by Tristan Anaya MD; for local anesthetic; Verbal order read back and verified. 9:29:06 Heparin Flush Bag (1000units/500ml NS) 2 bags added to field was administered by Tristan Anaya MD; used for procedure; Verbal order read back and verified. 9:31:02 Stress Test: no; N/A NSTEMI 9:31:07 Use device set Femoral Dx 9:31:08 ACIST Syringe (48140) opened to sterile field. 9:31:08 Bag Decanter () opened to sterile field. 9:31:10 ACIST Hand Control (85159) opened to sterile field. 9:31:11 ACIST Manifold (57415) opened to sterile field. 9:31:14 Medline Cath Pack ([id number]) opened to sterile field. 9:31:15 DIAGNOSTIC Multipack 5Fr catheter set ([id number]) opened to sterile field. 9:31:16 SHEATH 5FR [place] (LSE393) opened to sterile field. 9:31:17 EMERALD Guide Wire (502-290) opened to sterile field. 9:33:00 Pt arrives to CL w/ SpO2 89% on RA. 4LNC placed w/ O2 now at 90%. MD aware. 9:34:57 ECG and BP/O2 sat monitors applied to patient. 9:34:58 Baseline sample Acquired. 9:35:05 Rhythm: sinus rhythm 9:35:07 Full Disclosure recording started 9:38:53 --------ALL STOP TIME OUT------ 9:38:54 Final Timeout: patient, procedure, and site verified with staff and physician. All members of the team are in agreement. 9:38:56 Right groin site verified by team. 9:38:59 Fire Safety Assessment: A--An alcohol-based skin anteseptic being used preoperatively., C--Open oxygen or nitrous oxide is being used., D--An ESU, laser, or fiber-optic light is being used. 9:39:02 Physical assessment completed. ASA score P 3 - A patient with severe systemic disease as per Tristan Anaya MD. 9:39:06 Sedation plan: IV Moderate Sedation Medication:Versed, Fentanyl 9:39:09 Versed 2 mg I.V. was administered by Erica Aiken RN; for sedation; Verbal order read back and verified. 9:39:20 Fentanyl 50 mcg was administered by Erica Aiken RN; for sedation; Verbal order read back and verified. 9:41:05 Procedure started. 9:41:56 Local anesthetic to right femoral artery with Lidocaine 2% by Tristan Anaya MD.INITIAL ACCESS ONLY 9:50:07 MICROPUNCTURE 4FR Cook ([id number]) opened to sterile field. 9:58:26 Left groin area was prepped with chlora-prep and draped in sterile fashion 9:58:47 Local anesthetic to left femerol artery with Lidocaine 2% by Tristan Anaya MD.ADDITIONAL ACCESS 10:00:38 Access obtained with 4Fr micropunture. 10:00:50 A 5 Fr sheath was inserted into the Left Femoral artery 10:01:38 A MULTIPACK JL 4.0 5Fr catheter was advanced over the wire and used for Procedure. 10:02:15 LCA angiography performed. 10:05:02 Catheter removed. 10:05:12 A MULTIPACK 3DRC 5Fr catheter was advanced over the wire and used for Procedure. 10:05:45 RCA angiography performed. 10:05:48 Catheter removed. 10:05:54 A MULTIPACK Pigtail 5 Fr catheter was advanced over the wire and used for Ventriculography. 10:06:42 Heparin Bolus 7000 units I.V. was administered by Erica Aiken RN; for anticoagulation; verified with Dr. Anaya Verbal order read back and verified. 10:06:55 Integrilin (Bolus 2mg/ml) 6.8 ml I.V. was administered by Erica Aiken RN; for antiplatelet therapy; Verbal order read back and verified. 10:07:05 Integrilin (Bolus 2mg/ml) 3.2 ml wasted was administered by Erica Aiken RN; for antiplatelet therapy; Verbal order read back and verified. 10:07:11 Plavix 600 mg P.O. was administered by Erica Aiken RN; for antiplatelet therapy; Verbal order read back and verified. 10:07:40 SHEATH 6FR [place] (IYA700) opened to sterile field. 10:07:41 INFLATOR Merit BasixCompak (GM5451) opened to sterile field. 10:07:41 GUIDE 6FR XBLAD 3.5 catheter ([id number]) opened to sterile field. 10:07:41 TUBING High Pressure Extension Tubing (Héctor) ([id number]) opened to sterile field. 10:07:42 BMW 300cm [place] 2 J wire ([id number]) opened to sterile field. 10:08:25 EF : 30 % 10:08:31 Catheter removed. 10:08:39 Proceeding to intervention. 10:08:48 Sheath upsized to a 6 Fr Short. 10:09:02 Pre PCI Site: [place] pLAD has 90% stenosis. 10:09:10 6 Fr xblad3.5 guide catheter was inserted over the wire 10:09:39 BMW wire advanced. 10:18:38 Inflate balloon Inflation number: 1 A EMERGE OTW 2.0 x 15 balloon ([id number]) was prepped and advanced across the Prox LAD , then inflated to 15 NATALIE for 0:37 (min:sec) . 10:20:17 Inflation number: 2 The EMERGE OTW 2.0 x 15 balloon ([id number]) was reinflated across the Prox LAD , to 16 NATALIE for 0:40 (min:sec) . 10:22:14 Nitroglycerin IC/IA 100 mcg I.C. was administered by Tristan Anaya MD; for vasodilation; Verbal order read back and verified. 10:22:46 Fentanyl 50 mcg was administered by Tristan Anaya MD; for sedation; Verbal order read back and verified. 10:25:21 Balloon removed over the wire. 10:30:11 NAZIA WIRE 10:30:18 BMW 300cm [place] 2 J wire ([id number]) opened to sterile field. 10:37:11 Place stent Inflation Number: 3 A NINFA OTW 2.5 x 12 stent ([id number]) was prepped and advanced across the Prox LAD 90. The stent was deployed at 14 NATALIE for 0:48 (min:sec) 0. 10:37:30 Stent catheter was removed intact over wire. 10:41:21 Inflate balloon Inflation number: 4 A EUPHORA 3.0 x 10 balloon ([id number]) was prepped and advanced across the Prox LAD 0, then inflated to 11 NATALIE for 0:25 (min:sec) . 10:42:53 EXOSEAL 6Fr (EX600) opened to sterile field. 10:42:54 Tegaderm 4 x 4 (1626W) opened to sterile field. 10:43:00 Balloon removed over the wire. 10:43:02 Wire removed. 10:43:02 Guide catheter removed. 10:43:13 Sheath removed intact; hemostasis achieved with Exoseal to the Left Femoral artery. 10:44:07 Procedure ended.(Physican Out) 10:46:44 Integrilin Drip (75mg/100ml) 3.1 ml/hr I.V. drip was administered by Erica Aiken RN; for antiplatelet therapy; Verbal order read back and verified. 10:46:54 Fluoroscopy time 13.20 minutes. 10:47:08 Fluoroscopy dose: 1360 mGy 10:47:08 Flurop Dose total: 1360 10:47:14 Dose Area Product 78470 mGy/cm. 10:47:19 Contrast amount:Isovue 300 131ml. 10:47:24 Maximum allowable dose exceeded? Yes. 10:47:34 Insertion/operative site no bleeding no hematoma. 10:47:38 Post right femoral artery:stable 10:47:46 Post-procedure physical assessment completed. ASA score P 3 - A patient with severe systemic disease as per Tristan Anaya MD. 10:47:49 Post procedure rhythm: unchanged. 10:47:53 Estimated blood loss: 10 ml 10:47:55 Post procedure instruction explained to patient.Patient verbalizes understanding. 10:48:47 Procedure type changed to Cath procedure, Diagnostic procedure, LHC, [facility] w/Coronaries, Sedation Charges, Moderate Sedation up to 45 minutes, PCI procedure, Coronary Stent, Coronary Stent Initial, Hemochron ACT Test 10:48:49 Procedure and supply charges have been captured, reviewed, submitted and are correct. 10:49:33 Procedure Complication : No complications 10:49:35 Vital chart was stopped 10:49:42 [facility] Findings: MVD- PCI performed (see procedure note) 10:49:44 See physician's report for complete and final results. 10:49:47 Report given to [facility]. 10:49:54 Patient transfered to [facility] with Bed. 10:49:56 Procedure ended. 10:49:56 Full Disclosure recording stopped 10:50:00 End room use (Document Last) 10:50:00 End room use (Document Last) 10:50:04 ACC-PCI Only Patient was given prescriptions, or instructed by Tristan Anaya MD to start/continue the following medications upon discharge: Plavix 10:50:16 ACT drawn and resulted at >400- out of range seconds. (normal therapeutic range 180-240 seconds). Intervention Summary Intervention Notes Time ActionType Lesion and Equipment Action# Pressure Duration Attributes Used 10:18:38 Inflate Prox LAD EMERGE OTW 1 15 00:37 balloon 2.0 x 15 balloon ([id number]) 10:20:17 Reinflate Prox LAD EMERGE OTW 2 16 00:40 balloon 2.0 x 15 balloon ([id number]) 10:37:11 Place stent Prox LAD NINFA OTW 2.5 3 14 00:48 x 12 stent ([id number]) 10:41:21 Inflate Prox LAD EUPHORA 3.0 x 4 11 00:25 balloon 10 balloon ([id number]) Device Usage Item Name Manufacture Quantity Catalog Number Hospital Part Current Min imal Lot# / Charge Number Stock Stock Serial# Code ACIST Syringe Acist 1 96868 207443 627915 620448 20 (80171) Medical Systems Inc Bag Decanter Microtek 1 057175 87861 072327 5 () Medical Inc. ACIST Hand Acist 1 42212 047254 162141 536409 5 Control Medical (82424) Systems Inc ACIST Acist 1 25561 938506 371819 962168 5 Manifold Medical (27592) Systems Inc Medline Cath Medline 1 [id number] 445587 51095 619048 5 Pack ([id number]) DIAGNOSTIC Cardinal 1 OF5560 968837 76368 214602 30 Multipack 5Fr Health catheter set (UD8273) SHEATH 5FR Terumo 1 APK245 305648 582866 683574 5 [place] (JLJ214) EMERALD Guide Cardinal 1 502-455 984426 517686 095631 5 Wire Health (502-455) MICROPUNCTURE Cook Medical 1 B05417 877820 153910 552320 5 4FR Cook (Z10094) MULTIPACK JL Cardinal 1 301518 5 4.0 5Fr Health catheter MULTIPACK Cardinal 1 931554 5 3DRC 5Fr Health catheter MULTIPACK Cardinal 1 696289 5 Pigtail 5 Fr Health catheter SHEATH 6FR Terumo 1 SYL053 438156 698723 511915 40 [place] (AOV637) INFLATOR Merit 1 VQ5674 462060 170199 973359 15 Merit Medical BasixCompak (YF9541) GUIDE 6FR Cardinal 1 [id number] 923322 885429 170028 10 XBLAD 3.5 Health catheter (97824778) TUBING High Merit 1 [id number] 932768 00953 321788 10 Pressure Medical Extension Tubing (Anaya) (WN5256U) BMW 300cm [place] 2 [id number] 532700 905858 299219 5 [place] 2 J Vascular wire (2076288L) EMERGE OTW Beggs 1 [id number] 718153 310251 132510 5 [id number] 2.0 x 15 Scientific balloon ([id number]) NINFA OTW 2.5 Medtronic 1 [id number] 377391 48135 719129 5 [id number] x 12 stent ([id number]) EUPHORA 3.0 x Medtronic 1 [id number] 280025 373472 463141 5 [id number] 10 balloon ([id number]) EXOSEAL 6Fr Cardinal 1 EX600 398732 496065 940907 10 (EX600) Health Tegaderm 4 x 3M 1 1626W 373689 616974 984031 5 4 (1626W) Signature Audit [place] Stage Time Signature Unsigned Intra-Procedure 04/01/2020 Belle Curtis 10:52:27 AM RT(R) Intra-Procedure 04/01/2020 Erica Aiken 10:52:57 AM RN Intra-Procedure 04/01/2020 Tristan Anaya MD 10:53:32 AM [facility] [address] [place] [address]
[2020-03-31] MEDS ORDERED: PROCARDIA XL60 MG PO (00:12)
[2020-03-31 00:24] LABS: BASOPHILS 0.5 % (0-2); EOSINOPHILS 2.6 % (0-7); HEMATOCRIT 40.3 % (36.0-48.0); IMMATURE GRANULOCYTES 0.3 % (0-5); LYMPHOCYTES 33.4 % (15-50); MCH 30.2 pg (26.0-34.0); MCHC 32.3 g/dL (31.0-37.0); MCV 93.5 fL (80.0-100.0); MEAN PLATELET VOLUME 9.8 fL (7.4-10.4); MONOCYTES 4.6 % (2-11); NEUTROPHILS 58.6 % (40-80); PLATELET COUNT 237 10x3/uL (130-400); RBC 4.31 10x6/uL (4.00-5.40); WBC 11.5 10x3/uL (4.8-10.8)
[2020-03-31 00:25] LABS: CALC OSMOLALITY 276 mosm/kg (275-300); CALCIUM 8.9 mg/dL (8.5-10.1); CARBON DIOXIDE 21.6 mmol/L (21.0-32.0); CHLORIDE - SERUM 102 mmol/L (98-107); CREATININE - SERUM 1.7 mg/dL (0.6-1.3); POTASSIUM - SERUM 3.7 mmol/L (3.5-5.1); SODIUM 134 mmol/L (136-145); UREA NITROGEN 24 mg/dL (7-18); eGFR NON AFRICAN AMERICAN 31 mL/min (90-120)
[2020-03-31 00:26] LABS: GLUCOSE 190 mg/dL (74-106)
[2020-03-31 00:27] LABS: APTT 25.2 SECONDS (22.8-39.4); INR 1.04 (0.85-1.17); PROTIME 13.6 SECONDS (11.6-15.0)
[2020-03-31 00:38] LABS: D-DIMER-QUANTITATIVE 4.02 ug/mLFEU (0.20-0.54)
[2020-03-31 00:40] LABS: ALBUMIN 3.6 g/dL (3.4-5.0); ALKALINE PHOSPHATASE 74 U/L (30-120); ALT (SGPT) 23 U/L (10-68); BILIRUBIN - TOTAL 0.37 mg/dL (0.2-1.3); LIPASE 83 U/L (73-393); MAGNESIUM - SERUM 2.2 mg/dL (1.8-2.4); PRO BNP 175 pg/mL (0-450); PROTEIN - SERUM 6.8 g/dL (6.4-8.2); THYROID STIMULATING HORMONE 8.83 uIU/mL (0.36-3.74); TROPONIN-I < 0.017 ng/mL (0.000-0.060)
[2020-03-31] MEDS ORDERED: LIPITOR10 MG PO (01:54)
[2020-03-31] MEDS ORDERED: PACERONE100 MG PO (01:55)
[2020-03-31 02:27] VITALS: BP 118/60; BMI 27.0
[2020-03-31 02:36] LABS: CKMB 1.6 U/L (0.0-3.6); CREATINE KINASE 159 UL (21-215); MAGNESIUM - SERUM 2.2 mg/dL (1.8-2.4); PHOSPHOROUS 5.3 mg/dL (2.5-4.9)
[2020-03-31 04:00] VITALS: BP 118/53
--- NOTE | 2020-03-31 07:15 | NUR ---
RECEIVED PT IN BED EYES CLOSED RESP UNLABORED SKIN W/D COLOR WNL NAD NOTED PT DENIES ANY NEEDS OR DISCOMFORT AT THIS TIME
[2020-03-31 07:41] LABS: BACTERIA MANY /hpf (NEGATIVE); BILIRUBIN NEGATIVE (NEGATIVE); EPITHELIAL CELLS 0-5 /hpf (0-5); GLUCOSE NEGATIVE (NEGATIVE); HYALINE CAST 0-5 /lpf (NONE SEEN); KETONE NEGATIVE (NEGATIVE); NITRITE NEGATIVE (NEGATIVE); RED CELLS - URINE 0-5 /hpf (0-5); SPECIFIC GRAVITY 1.015 (1.005-1.020); UROBILINOGEN NORMAL (NORMAL)
[2020-03-31 10:17] VITALS: BP 136/75
[2020-03-31 11:42] LABS: CALCIUM 9.1 mg/dL (8.5-10.1); CARBON DIOXIDE 20.9 mmol/L (21.0-32.0); CREATININE - SERUM 1.6 mg/dL (0.6-1.3); POTASSIUM - SERUM 3.9 mmol/L (3.5-5.1)
[2020-03-31 14:42] VITALS: BP 125/68
[2020-03-31 18:14] VITALS: BP 125/71
--- NOTE | 2020-03-31 19:45 | NUR ---
REPORT RECIEVED AND INITIAL ROUNDS COMPLETED. PT RESTING IN BED. ALERT/ORIENTED. SR/78 PER TELEMETRY. NONLABORED RESPIRATIONS ON O2 @ 2L/NC. LFA PIV WITH NS @ 50ML/HR INFUSING. DENIES PAIN OR DISCOMFORT AT THIS TIME. CPOC.
[2020-03-31 21:21] VITALS: BP 115/69
--- NOTE | 2020-03-31 22:57 | NUR ---
BEDTIME MEDS GIVEN. PT RESTING. IVF INFUSING. CPOC.
[2020-04-01 00:01] VITALS: BP 110/61
[2020-04-01 04:00] VITALS: BP 96/53
[2020-04-01 05:11] LABS: HEMATOCRIT 37.6 % (36.0-48.0); HEMOGLOBIN 12.4 g/dL (12-16); LYMPHOCYTES 27.3 % (15-50); MCH 30.4 pg (26.0-34.0); MCV 92.2 fL (80.0-100.0); MEAN PLATELET VOLUME 10.7 fL (7.4-10.4); NEUTROPHILS 66.2 % (40-80); PLATELET COUNT 199 10x3/uL (130-400); RBC 4.08 10x6/uL (4.00-5.40); RDW 13.2 % (11.5-14.5); WBC 11.6 10x3/uL (4.8-10.8)
[2020-04-01 05:16] LABS: ANION GAP 11.6 mmol/L (8-16); BILIRUBIN - TOTAL 0.63 mg/dL (0.2-1.3); CALCIUM 8.4 mg/dL (8.5-10.1); CARBON DIOXIDE 25.4 mmol/L (21.0-32.0); CREATININE - SERUM 1.2 mg/dL (0.6-1.3); PROTEIN - SERUM 6.4 g/dL (6.4-8.2)
[2020-04-01 05:18] LABS: TROPONIN-I 12.431 ng/mL (0.000-0.060)
--- NOTE | 2020-04-01 05:23 | NUR ---
AM LAB SHOWS TROPONIN HAS INCREASED TO 12.431 FROM 0.017. PT ASYMPTOMATIC, SR PER TELEMETRY. HAVING LAB DO A REDRAW TO CONFIRM.
[2020-04-01 06:30] LABS: CKMB 13.8 U/L (0.0-3.6)
[2020-04-01 06:31] LABS: CREATINE KINASE 376 UL (21-215)
--- NOTE | 2020-04-01 06:54 | NUR ---
CALL TO DR HELM AND REPORTED ELEVATED TROPONIN 12.431 WITH RECHECK BEING 10.850 AND ALSO CRITICAL CKMB 13.8 AND CK 376. NO NEW ORDERS AT THIS TIME.
[2020-04-01 08:12] LABS: CALCIUM 8.4 mg/dL (8.5-10.1); CARBON DIOXIDE 26.1 mmol/L (21.0-32.0); CHOL - HDL RATIO 1.9 ratio (2.3-4.1); CREATININE - SERUM 1.2 mg/dL (0.6-1.3); LDL-HDL RATIO 0.8 ratio (1.5-3.5); POTASSIUM - SERUM 4.1 mmol/L (3.5-5.1)
[2020-04-01 08:36] VITALS: BP 113/65
[2020-04-01 09:55] VITALS: BMI 26.9
[2020-04-01 12:46] VITALS: BP 122/69
--- NOTE | 2020-04-01 13:15 | NUR ---
RECEIVED PT IN BED AAOX4 RESP UNLABORED O2 ON 2LPM NC DENIES ANY NEEDS OR DISCOMFORT AT THIS TIME
[2020-04-01 16:38] VITALS: BP 116/68
[2020-04-01 20:00] VITALS: BP 108/70
--- NOTE | 2020-04-01 20:00 | NUR ---
REPORT RECIEVED AND INITIAL ROUNDS COMPLETED. PT RESTING IN BED. DENIES PAIN OR DISCOMFORT. SR PER TELEMETRY. IV TO LFA WITH NS @ 75ML/HR +[place] DRIP INFUSING@ 3.1ML/HR UNTIL 0 TONIGHT. LEFT GROIN ASSESSED. INCISION WITH DRESSING C/D/I. NO BRUISING. NO SWELLING. GOOD PEDAL PULSES. CPOC.
--- NOTE | 2020-04-01 22:30 | NUR ---
BEDTIME MEDS GIVEN. [place] DRIP NOW DC'D PER MD ORDERS. PT RESTING WITH EYES CLOSED. RESPS EVEN/NONLABORED. CPOC.
[2020-04-02] VITALS: BP 111/65
--- NOTE | 2020-04-02 01:47 | NUR ---
RESTING IN BED WITH NO DISTRESS. NONLABORED RESPIRATIONS. CALL LIGHT IN REACH. CPOC.
[2020-04-02 04:00] VITALS: BP 118/69
--- NOTE | 2020-04-02 04:28 | NUR ---
PT AWAKE AND RESTING IN BED. IV ABT UP AND INFUSING. COFFEE AND JUICE PROVIDED. CPOC. IV ABT ORDERED.
--- NOTE | 2020-04-02 04:41 | NUR ---
CALLED RT TO COME GIVE PRN BREATHING TREATMENT TO PATIENT. O2 SAT 88% ON O2 @ 10L/HFNC.
--- NOTE | 2020-04-02 04:44 | NUR ---
R.T. NOW IN ROOM ASSESSING PATIENT. PT IS MILDLY SOB WITH SOME WHEEZING NOTED.
--- NOTE | 2020-04-02 04:59 | NUR ---
REVIEW OF PULMONARY CONSULTATION AND DR BONILLA STATES BIPAP PRN, RT IMPLEMENTING THIS AT THIS TIME FUE TO SOB/WHEEZING AND O2 SAT 88% ON HFNC 11L.
--- NOTE | 2020-04-02 05:36 | NUR ---
PT NOW ON BIPAP 12/5 WITH 55% OXYGEN. MEDICATED WITH MORPHINE/ZOFRAN IV TO RELAX PT, PROMOTE OPTIMAL COMFORT. IVF INFUSING. IV ABT INFUSING. CPOC.
[2020-04-02 06:00] LABS: ANION GAP 11.5 mmol/L (8-16); CALCIUM 8.1 mg/dL (8.5-10.1); CARBON DIOXIDE 25.6 mmol/L (21.0-32.0); CREATININE - SERUM 1.1 mg/dL (0.6-1.3); POTASSIUM - SERUM 4.1 mmol/L (3.5-5.1)
[2020-04-02 06:21] LABS: LYMPHOCYTES 17.2 % (15-50); MCH 30.2 pg (26.0-34.0); MCHC 32.4 g/dL (31.0-37.0); MCV 93.4 fL (80.0-100.0); MEAN PLATELET VOLUME 10.7 fL (7.4-10.4); NEUTROPHILS 73.4 % (40-80); RBC 3.64 10x6/uL (4.00-5.40); WBC 8.9 10x3/uL (4.8-10.8)
[2020-04-02 06:22] LABS: PLATELET COUNT 144 10x3/uL (130-400)
--- NOTE | 2020-04-02 06:45 | NUR ---
PT NOW RESTING WITH BIPAP IN PLACE. EYES CLOSED. RESPS EVEN/NONLABORED. CPOC.
[2020-04-02 08:26] VITALS: BP 106/67
--- NOTE | 2020-04-02 08:50 | NUR ---
AM MEDS GIVEN AT THIS TIME. PT A/O X4, PLACED ON 11 L HF WHILE PT EATS HER BREAKFAST THEN WILL PUT HER BACK ON BIPAP. LT WRIST INFUSING NS AT 75CC/HR. PT DENIES ANY OTHER NEEDS AT THIS TIME. CALL LIGHT IN REACH, NAD NOTED, WILL CONTINUE TO MONITOR.
--- NOTE | 2020-04-02 11:20 | NUR ---
PER DR. BONILLA GIVE 20MG OF LASIX ONE TIME DOSE. TAKE PT OFF BIPAP AND PLACE HER ON NC. ORDER ABGS.
[2020-04-02 12:29] VITALS: Ht 170.2 cm; Wt 84.1 kg
[2020-04-02 12:49] VITALS: BP 123/82
--- NOTE | 2020-04-02 14:23 | NUR ---
Rehab Prescreening Consult recieved and the chart has been reviewed. She is a good ARU candidate when she is medically stable. She is on hi flow 02 at 10-11 liters and was unable to ambulate with PT. Rehab will follow her progress with PT. Jane Bliss RN Clinical Liaison, Rehab
[2020-04-02 15:59] VITALS: BP 100/65
[2020-04-02 20:00] VITALS: BP 109/65
--- NOTE | 2020-04-02 20:00 | NUR ---
REPORT RECIEVED AND INITIAL ROUNDS COMPLETED. PT RESTING IN BED. O2 @ 20L/NFNC IN PLACE. 02 SAT 88%. NS @ 75ML/HR INFUSING TO LFA. SR PER TELEMETRY. CPOC.
[2020-04-03] VITALS: BP 103/60
--- NOTE | 2020-04-03 02:53 | NUR ---
IV ABT UP AND INFUSING. PT AWAKENS EASILY, WEARING BIPAP AND PULSE OX SHOWS 93%. RT NOW IN ROOM TALKING WITH PATIENT. CPOC.
--- NOTE | 2020-04-03 02:55 | NUR ---
PT ENCOURAGED TO DRINK WATER EACH TIME NURSE OR RT IN ROOM TO HELP WITH DRY MOUTH.
--- NOTE | 2020-04-03 03:31 | NUR ---
ASSISTED UP TO USE BSC. BACK TO BED. BIPAP IN PLACE. CALL LIGHT IN REACH.
[2020-04-03 04:00] VITALS: BP 106/61
[2020-04-03 06:03] LABS: HEMATOCRIT 30.5 % (36.0-48.0); HEMOGLOBIN 9.9 g/dL (12-16); LYMPHOCYTES 18.3 % (15-50); MCHC 32.5 g/dL (31.0-37.0); MCV 92.4 fL (80.0-100.0); NEUTROPHILS 72.7 % (40-80); PLATELET COUNT 137 10x3/uL (130-400); RDW 12.9 % (11.5-14.5); WBC 9.2 10x3/uL (4.8-10.8)
[2020-04-03 06:11] LABS: ANION GAP 8.6 mmol/L (8-16); CARBON DIOXIDE 26.3 mmol/L (21.0-32.0); CREATININE - SERUM 0.9 mg/dL (0.6-1.3); POTASSIUM - SERUM 3.9 mmol/L (3.5-5.1)
[2020-04-03 08:35] VITALS: BP 103/61
--- NOTE | 2020-04-03 08:38 | NUR ---
PT REQUESTED TO BE OFF BIPAP TO EAT HER BREAKFAST. TOOK PT OFF AND GAVE AM MEDS. PT'S O2 SAT STAYING 87-89% AND PT IS A LITTLE SOB. INFOREMD PT THAT I WOULD LET HER EAT BREAKFAST BUT SOON SHE IS DONE SHE WILL HAVE TO GO BACK ON THE BIPAP.
--- NOTE | 2020-04-03 08:59 | NUR ---
PT PLACED BACK ON BIPAP.
[2020-04-03 09:08] LABS: THYROGLOBULIN ANTIBODY <1.0 IU/mL (0.0-0.9); THYROID PEROXIDASE ABS <9 IU/mL (0-34)
--- NOTE | 2020-04-03 09:46 | NUR ---
OT NOTE: ATTEMPTED OT EVAL, HOWEVER, PT ON BIPAP AND NURSING REPORTS THAT SHE HAS HAD TO KEEP HER ON BIPAP DUE TO SATS DROPPING. REQUESTED TO HOLD TODAY. WILL ATTEMPT TOMORROW. WILLIAM YUSUF, OTR/L
--- NOTE | 2020-04-03 10:00 | EC ---
PATIENT:EDWIGE PALACIOS DATE OF SERVICE: 03/31/20 SEX: F MEDICAL RECORD: [id number] DATE OF : 38 LOCATION:D.M2 D.211 AGE OF PATIENT: 79 ADMISSION DATE: 03/31/20 REFERRING PHYSICIAN: INTERPRETING PHYSICIAN: ULISSES JOE MD ECHOCARDIOGRAM REPORT ECHO CHARGES 4 ECHO COMPLETE Date: 03/31/20 CLINICAL DIAGNOSIS: PE, ASSESS FOR RIGHT HEART STRAIN ECHOCARDIOGRAPHIC MEASUREMENTS (adult normal given) AC root (d.<3.7cm) 2.6 cm LV Septum d (<1.2 cm> 1.0 cm Valve Excursion 1.4 cm LV Septum (systole) 1.1 cm Left Atria (s.<4.0cm> 4.5 cm LVPW d(<1.2cm) 1.0 cm RV (d.<2.3cm) 3.3 cm LVPW (sytole) 1.4 cm LV diastole(<5.6CM) 6.2 cm MV E-F(>70mm/sec) cm LV systole 5.4 cm LVOT Diameter 1.7 cm MV exc.(>10mm) cm Est.ejection fraction (50-75%) % DOPPLER: LVIT cm/sec A 73 cm/sec E 55 cm/sec LA cm/sec RVSP 19.0 mmHg LVOT 96 cm/sec AOP1/2T m/s Asc. Ao 147 cm/sec RVOT 64 cm/sec RA cm/sec PA 78 cm/sec AV Gradient Peak 8.7 mmHg AV Mean 4.6 mmHg AV Area 1.5 cm MV Gradient Peak 1.9 mmHg MV Mean 1.4 mmHg MV Area cm COMMENTS: Field Technician: Faby MEDRANO Computer Applications Instructor: 3 Dr. Mcghee TAPE# PACS Pericardial Effusion N DATE OF SERVICE: Adequate 2D, color flow imaging, spectral Doppler, and M-Mode No LVH. LV internal dimensions are dilated at 6.2 cm. 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 Aortic valve is sclerosed without evidence of stenosis by Doppler interrogation. Left atrium dilated at 4.5 cm. Mitral valve shows no prolapse. Trace MR. Right-sided chambers are grossly normal. Mild TR. ECHOCARDIOGRAM REPORT [id number] EDWIGE PALACIOS TRANSINT:[id number] Voice Confirmation ID: [id number] DOCUMENT ID: [id number] ULISSES JOE MD at 1000 CC: [id number] DICTATION DATE: 03/31/20 1119 DIRECTOR MANUFACTURING ENGINEERING: 03/31/20 1345 ADM IN [place] [id number] [place] [id number]
--- NOTE | 2020-04-03 11:52 | NUR ---
Nutrition Follow-up: On bipap at time of visit. Noted pt ate ~50% of breakfast this AM. Diet: Cardiac PO intake: 50% avg x 4 meals No new wt; last wt: 172# (04/01) Last BM: 04/02 per chart Labs noted: Na 133, Glu 123, Ca 8.0 Meds noted: vitamin D, NS @ 75, Pepcid, Zofran, electrolyte protocol -Encourage PO intake and honor food preferences within diet restrictions. -Offer nutrition supplements. -Monitor wt; noted daily wts ordered. -RD following.
[2020-04-03 13:15] VITALS: BP 107/68
[2020-04-03 18:23] VITALS: BP 106/62
[2020-04-03 20:54] VITALS: BP 96/59
[2020-04-04] VITALS (13 sets, daily range): BP systolic 93–125; BP diastolic 53–96
[2020-04-04 07:08] LABS: HEMATOCRIT 30.6 % (36.0-48.0); HEMOGLOBIN 10.1 g/dL (12-16); MCH 30.2 pg (26.0-34.0); MCV 91.6 fL (80.0-100.0); MEAN PLATELET VOLUME 10.3 fL (7.4-10.4); NEUTROPHILS 87.1 % (40-80); PLATELET COUNT 161 10x3/uL (130-400); RBC 3.34 10x6/uL (4.00-5.40); RDW 13.1 % (11.5-14.5); WBC 9.6 10x3/uL (4.8-10.8)
[2020-04-04 07:21] LABS: ANION GAP 14.4 mmol/L (8-16); CALCIUM 8.2 mg/dL (8.5-10.1); CARBON DIOXIDE 23.1 mmol/L (21.0-32.0); PHOSPHOROUS 3.3 mg/dL (2.5-4.9); POTASSIUM - SERUM 3.5 mmol/L (3.5-5.1)
--- NOTE | 2020-04-04 07:40 | NUR ---
LEAVING FOR CT BY BED.
--- NOTE | 2020-04-04 09:49 | NUR ---
Rehab Note- Noted to being using BiPap to keep up O2 sats, will continue to follow at this time for improvement and ability to participate in the required therapy for inpatient acute rehab. Thank you for this referral! Liz Nick RN Clinical Liaison, [facility] Rehab
--- NOTE | 2020-04-04 10:08 | NUR ---
ASSISTED UP TO CHAIR BY PT. PATRICIA CONT. PLAN OF CARE.
--- NOTE | 2020-04-04 14:39 | NUR ---
TRANSFERED TO ICU BY BED TO ROOM 2303.
--- NOTE | 2020-04-04 14:50 | NUR ---
PT ARRIVED ON UNIT VIA BED, HOOKED TO MONITORS, ALERT AND ORIENTED, NO NEEDS NOTED, VSS, CALL LIGHT IN REACH
--- NOTE | 2020-04-04 14:56 | MORECARE ---
CASE MANAGEMENT DISCHARGE SUMMARY PATIENT: EDWIGE PALACIOS UNIT: [id number] ADM DATE: 03/31/20 AGE: 79 : 39 SEX: F ROOM/BED: D.2303 AUTHOR: FAUSTINA STEINER PHYSICIAN: REFERRING PHYSICIAN: MARIBELL LEGGETT MD DATE OF SERVICE: 04/04/20 Discharge Plan Patient Name: EDWIGE PALACIOS Facility: [facility]:[place] : 1940 Planned Disposition: Home Anticipated Discharge Date: Discharge Date: Expected LOS: Initial Reviewer: [email or web address] Initial Review Date: 03/31/2020 Generated: 04/04/20 3:55 pm Patient Name: EDWIGE PALACIOS Page [id number] at 1456 All edits/amendments must be made on the electronic document DICTATION DATE: 04/04/201455 PLATFORM CONSULTANT: HUBER 04/04/201455 RPT#: [id number] [place] DATE: STATUS: ADM IN [facility] [address] [place] [address] END OF REPORT
--- NOTE | 2020-04-04 15:05 | MORECARE ---
CASE MANAGEMENT DISCHARGE SUMMARY PATIENT: EDWIGE PALACIOS UNIT: [id number] ADM DATE: 03/31/20 AGE: 79 : 39 SEX: F ROOM/BED: D.2303 AUTHOR: JATIN,DOC PHYSICIAN: REFERRING PHYSICIAN: MARIBELL LEGGETT MD DATE OF SERVICE: 04/04/20 Discharge Plan Patient Name: EDWIGE PALACIOS Facility: [facility]:[place] : 1940 Planned Disposition: Home Anticipated Discharge Date: Discharge Date: Expected LOS: Initial Reviewer: [email or web address] Initial Review Date: 03/31/2020 Generated: 04/04/20 4:04 pm DCP- Discharge Planning Updated by [email or web address]: Balbina Jansen on 04/04/20 2:[address] Patient Name: EDWIGE PALACIOS Admission Status: ER Accout number: [id number] Admission Date: 03-31-2020 : 1940 Admission Diagnosis:SHORTNESS OF BREATH Attending: MARIBELL LEGGETT Current LOS: 4 Anticipated DC Date: Planned Disposition: Home Primary Insurance: MEDICARE A & B Discharge Planning Comments: CM met with patient at bedside after explaining CM role and obtaining verbal consent. Patient lives at home alone where she is independent with her care and plans to return there upon discharge. Patient feels this would be a safe discharge. CM discussed availability / needs of home health and medical equipment. Patient denies any discharge needs at this time. Patient states she will have her family drive her home upon discharge. Patient may need walk test upon discharge. CM will continue to follow and assist as needed with discharge planning / needs. Scalper Operator: Balbina Jansen DCPIA - Discharge Planning Initial Assessment Updated by [email or web address]: Balbina Jansen on 04/04/20 2:58 pm * Is the patient Alert and Oriented? Yes * How many steps to enter\exit or inside your home? * PCP JACOB * [facility] * Preadmission Environment Home Alone * ADLs Independent * Equipment Walker * List name and contact numbers for known caregivers / representatives who currently or will assist patient after discharge: TERRY VILLASENOR - DAUGHTER- [phone] * Verbal permission to speak to the caregivers and representatives has been obtained from the patient. Yes * Community resources currently utilized None * Additional services required to return to the preadmission environment? No * Can the patient safely return to the preadmission environment? Yes * Has this patient been hospitalized within the prior 30 days at any hospital? No Last DP export: 04/04/20 1:56 p Patient Name: EDWIGE PALACIOS Page 41935 at 1505 All edits/amendments must be made on the electronic document DICTATION DATE: 04/04/20 150 COMMERCIAL CARPET INSTALLER: DM 04/04/20 1504 RPT#: [id number] DC DATE: STATUS: ADM IN [facility] [address] [place] [address] END OF REPORT
--- NOTE | 2020-04-04 19:00 | NUR ---
REPORT RECEIVED FROM THE OFF GOING RN. SEE ASSESSMENT IN THE PTS FLOW SHEET. PT IN UNCONTROLLED AFIB RATE 110. OTHER VSS. PT DENIES PAIN/NEEDS AT THIS TIME. PT JUST PLACED ON VAPOTHERM BY RT. DR DEJESUS CALLED AND NOTIFIED IF HE WANTED A FC FOR I&O'S AND HE STATED YES. HE ALSO WAS MADE AWARE THAT THE PT IS IN AFIB. HE STATED TO REASSESS AFTER SCHEDULED LOPRESSOR. CALL LIGHT IN REACH. WILL CONT POC.
--- NOTE | 2020-04-04 20:00 | NUR ---
PT REQUESTED A FEMALE PLACE FC. TEE BARNHART PLACED FC. CLEAR, YELLOW URINE RETURNED. WILL CONT POC.
[2020-04-04 22:33] LABS: BILIRUBIN NEGATIVE (NEGATIVE); GLUCOSE NEGATIVE (NEGATIVE); KETONE NEGATIVE (NEGATIVE); NITRITE NEGATIVE (NEGATIVE); UROBILINOGEN NORMAL (NORMAL)
--- NOTE | 2020-04-04 22:36 | NUR ---
IV IN LEFT WRIST LEAKING AND CATHETER TIP PARTIALLY OUT. IV DC AND A 20 GAUGE IV STARTED TO LEFT FA. PATENT. DRESSING C/D/I. WILL CONT POC.
[2020-04-05] VITALS (24 sets, daily range): BP systolic 93–140; BP diastolic 7–134
--- NOTE | 2020-04-05 00:15 | NUR ---
PT DESATING TO 88%. PT PLACED ON BIPAP. O2 SAT NOW ABOVE 90%. WILL CONT POC.
--- NOTE | 2020-04-05 03:00 | NUR ---
REASSESSMENT COMPLETED. SEE FLOW SHEET. CALL LIGHT IN REC. WILL CONT POC.
[2020-04-05 06:59] LABS: BASOPHILS 0 % (0-2); EOSINOPHILS 0 % (0-7); HEMATOCRIT 29.6 % (36.0-48.0); HEMOGLOBIN 9.3 g/dL (12-16); IMMATURE GRANULOCYTES 0.3 % (0-5); LYMPHOCYTES 7.3 % (15-50); MCH 29.6 pg (26.0-34.0); MCHC 31.4 g/dL (31.0-37.0); MEAN PLATELET VOLUME 10.1 fL (7.4-10.4); NEUTROPHILS 88.4 % (40-80); PLATELET COUNT 180 10x3/uL (130-400); RBC 3.14 10x6/uL (4.00-5.40); RDW 13.7 % (11.5-14.5); WBC 9.8 10x3/uL (4.8-10.8)
--- NOTE | 2020-04-05 07:00 | NUR ---
REC'D REPORT AND RESUMED CARE, AAO, BIPAP IN USE, VSS, DENIES PAIN, VELA TO GRAVITY WITH CLEAR YELLOW DRAINAGE, ASSESSMENT COMPLETED PER FLOWSHEET. CALL LIGHT IN REACH, NO NEEDS AT THIS TIME
[2020-04-05 07:03] LABS: MCV 94.3 fL (80.0-100.0)
[2020-04-05 07:13] LABS: ALBUMIN 2.5 g/dL (3.4-5.0); ANION GAP 10.9 mmol/L (8-16); BILIRUBIN - TOTAL 0.42 mg/dL (0.2-1.3); CALCIUM 8.6 mg/dL (8.5-10.1); CREATININE - SERUM 1.2 mg/dL (0.6-1.3); MAGNESIUM - SERUM 2.1 mg/dL (1.8-2.4); POTASSIUM - SERUM 3.9 mmol/L (3.5-5.1); PROTEIN - SERUM 6.1 g/dL (6.4-8.2)
[2020-04-05 07:15] LABS: PHOSPHOROUS 4.3 mg/dL (2.5-4.9)
--- NOTE | 2020-04-05 08:00 | NUR ---
BI[PAP OFF VAPOTHERM @ 80% FIO2 PLACED ON
--- NOTE | 2020-04-05 08:45 | NUR ---
MEDS GIVEN PAR NATACHA STOUT, HELD [facility] [id number]
--- NOTE | 2020-04-05 09:32 | NUR ---
Nutrition follow-up: Pt sitting in bed eating breakfast. Pt reports decreased appetite; however, pt says appetite is usually very good at home. Diet: Low sodium PO intake continues to be ~50% of meals Labs reviewed Wt: 172# RDN following.
--- NOTE | 2020-04-05 10:05 | NUR ---
PAGED CARDIOLOGY, REC'D RETURN CALL FROM YANI PICHARDO, SHE WILL CONTACT FAMILY RE: STATUS UPDATE
--- NOTE | 2020-04-05 10:19 | NUR ---
DR GEORGE AT BEDSIDE FOR EVAL, NO NEW ORDERS AT THIS TIME
--- NOTE | 2020-04-05 11:28 | NUR ---
ECHO COMPLETED BY CARDIO NEURO TECH
--- NOTE | 2020-04-05 11:45 | NUR ---
LUNCH TRAY TO BEDSIDE, INDEPENDENT WITH SET UP AND EATING
--- NOTE | 2020-04-05 11:50 | NUR ---
LUNCH TRAY DEFERRED, STATED NOT HUNGRY, DRANK AN ENSURE
--- NOTE | 2020-04-05 12:14 | NUR ---
DAUGHTER YOUSUF STATUS WAS UPDATED BY KELSEY DAVEY, RN PLASTICS AND PER IT DEPT PC TABLET MADE AVAILABLE FOR ZOOM MEETING, PER YOUSUF SHE WILL HAVE OTHER FAMILY MEMBERS DOWNLOAD ZOOM AND WILL CALL BACK FOR MEETING ID AND PASSWORD
[2020-04-05 14:09] LABS: PROCALCITONIN 0.17 ng/mL (0.00-0.08)
--- NOTE | 2020-04-05 15:00 | NUR ---
CHG BATH GIVEN AND LINEN CHANGED, TOLERATED WITHOUT DIFFICULTY, NO OTHER ACUTE CHANGE FROM PREVIOUS
--- NOTE | 2020-04-05 16:30 | NUR ---
CALLED TO ROOM, FEELING SOB, RT TO BEDSIDE, REPOSITIONED O2 TUBING, O2 SAT 96%, NO OTHER NEEDS AT THIS TIME
--- NOTE | 2020-04-05 18:30 | NUR ---
ZOOM MEETING SET UP AT BEDSIDE, FOR PATIENT AND FAMILY, 7 FAMILY MEMBERS ARE PARTICIPATING AT THIS TIME
--- NOTE | 2020-04-05 19:00 | NUR ---
REPORT RECEVIED FROM THE OFF GOING RN. SEE ASSESSMENT IN THE PTS FLOW SHEET. VSS AT THIS TIME. PT CURRENLTY TALKING TO HER FAMILY VIA TABLET. PT DENIES NEEDS AT THIS TIME. CALL LIGHT IN REACH. WILL CONT POC.
--- NOTE | 2020-04-05 21:00 | NUR ---
PT RESTING QUIETY WITH NO ISSUES. CALL LIGHT IN REACH. VSS. WILL CONT POC.
--- NOTE | 2020-04-05 23:00 | NUR ---
REASSESSMENT COMPLETED. VSS CALL LIGHT IN REACH. WILL CONT POC.
[2020-04-06] VITALS (24 sets, daily range): BP systolic 98–136; BP diastolic 58–96
--- NOTE | 2020-04-06 01:00 | NUR ---
PT RESTING WITH HER EYES CLOSED. VSS. CALL LIGHT IN REACH. WILL CONT POC.
--- NOTE | 2020-04-06 03:00 | NUR ---
REASSESSMENT COMPLETED. SEE FLOW SHEET. CALL LIGHT IN REACH. [facility] ONT POC.
--- NOTE | 2020-04-06 05:00 | NUR ---
VSS. CALL LIGHT IN REACH. [facility] POC.
[2020-04-06 05:16] LABS: BASOPHILS 0 % (0-2); EOSINOPHILS 0 % (0-7); HEMATOCRIT 30.2 % (36.0-48.0); HEMOGLOBIN 9.6 g/dL (12-16); IMMATURE GRANULOCYTES 0.4 % (0-5); LYMPHOCYTES 6.7 % (15-50); MCH 29.8 pg (26.0-34.0); MCHC 31.8 g/dL (31.0-37.0); MCV 93.8 fL (80.0-100.0); MEAN PLATELET VOLUME 9.9 fL (7.4-10.4); NEUTROPHILS 87.9 % (40-80); PLATELET COUNT 205 10x3/uL (130-400); RBC 3.22 10x6/uL (4.00-5.40); RDW 13.7 % (11.5-14.5); WBC 11.5 10x3/uL (4.8-10.8)
[2020-04-06 05:39] LABS: ANION GAP 10.8 mmol/L (8-16); C-REACTIVE PROTEIN 5.2 mg/dL (0.0-0.9); CALCIUM 8.6 mg/dL (8.5-10.1); CARBON DIOXIDE 27.9 mmol/L (21.0-32.0); CREATININE - SERUM 1.5 mg/dL (0.6-1.3); MAGNESIUM - SERUM 2.2 mg/dL (1.8-2.4); PHOSPHOROUS 4.8 mg/dL (2.5-4.9); POTASSIUM - SERUM 3.7 mmol/L (3.5-5.1); VANCOMYCIN - TROUGH 20.7 ug/mL (10.0-20.0)
[2020-04-06 06:55] LABS: ERYTHROCYTE SEDIMENTATION RATE 47 mm/hr (0-30)
--- NOTE | 2020-04-06 07:00 | NUR ---
REC'D REPORT AND RESUMED CARE, AAO, VSS, DENIES PAIN, O2 IA VAPOTHERM @ 40L AND 80%FIO2, PULL 100 ON IS, LEFT WRIST PIV WITH NS AT 10 CC/HR, VELA TO GRAVITY WITH BLOODY SEDIMENT IN TUBING, ASSESSMENT COMPLETED PER FLOWSHEET, CHAVA LIGHT IN REACH, NO NEEDS AT THIS TIME
--- NOTE | 2020-04-06 07:40 | NUR ---
OOB TO CHAIR WITH STAND BY ASSIST, TOLERATED WITHOUT DIFFICULTY, BREAKFAST TO BEDSIDE, INDEPENDENT WITH SET UP AND EATING
--- NOTE | 2020-04-06 09:15 | NUR ---
MORNING MEDS GIVEN Jan FLOWSHEET
--- NOTE | 2020-04-06 11:40 | NUR ---
LUNCH TRAY TO BEDSIDE, INDEPENDENT WITH SET UP AND EATING
--- NOTE | 2020-04-06 11:40 | NUR ---
LUNCH TRAY TO BEDSIDE, INDEPENDENT WITH SET UP AND EATING
--- NOTE | 2020-04-06 11:45 | NUR ---
C/O HEADACHE 06/02, DR GEORGE ON UNIT, ORDER GIVEN FOR TYLENOL 650 Q6P, 1152 650 MG TYLENOL TO BEDSIDE FOR VEGA
--- NOTE | 2020-04-06 13:00 | NUR ---
BACK TO BED WITH STAND BY ASSIST, REPOSITIONED UP AND TO BACK, CALL LIGHT IN REACH, NO OTHER NEEDS AT THIS TIME
--- NOTE | 2020-04-06 15:00 | NUR ---
SLEEPING AROUSABLE TO VWERBAL STIMULI, RT TO BEDSIDE FOR UPDRAFT TX, TOLERATED WITHOUT DIFFICULTY
--- NOTE | 2020-04-06 15:20 | NUR ---
PICKED UP GOOD BAG FROM SCREENING STATION AND BROUGHT TO BEDSIDE, ALSO REC'D EMAIL'S FROM [employer] ENGINEER [employer]
--- NOTE | 2020-04-06 16:45 | NUR ---
DINNER TRAY TO BEDSIDE, INDEPENDENT WITH SET UP AND EATING
--- NOTE | 2020-04-06 19:30 | NUR ---
SHIFT ASSESSMENT COMPLETE. CALL LIGHT WITHIN REACH, BED IN LOW POSITION.
--- NOTE | 2020-04-06 21:27 | NUR ---
H2O GIVEN WITH MEDS. DENIES ANY NEEDS. CALL LIGHT WITHIN REACH, BED IN LOW POSITION.
--- NOTE | 2020-04-06 23:00 | NUR ---
REASSESSMENT COMPLETE NO CHANGES. CALL LIGHT WITHIN REACH, BED IN LOW POSITION.
[2020-04-07] VITALS (24 sets, daily range): BP systolic 100–148; BP diastolic 59–91
--- NOTE | 2020-04-07 01:00 | NUR ---
NO CHANGES. CALL LIGHT WITHIN REACH, BED IN LOW POSITION. PATIENT IS SLEEPING AT THIS TIME.
--- NOTE | 2020-04-07 03:00 | NUR ---
REASSESSMENT COMPLETE. NO CHANGES. CALL LIGHT WITHIN REACH, BED IN LOW POSITION.
--- NOTE | 2020-04-07 03:30 | NUR ---
RESPIRATORY WEANED O2 TO 50%.
[2020-04-07 03:50] LABS: BASOPHILS 0 % (0-2); EOSINOPHILS 0 % (0-7); HEMATOCRIT 29.2 % (36.0-48.0); HEMOGLOBIN 9.1 g/dL (12-16); IMMATURE GRANULOCYTES 0.4 % (0-5); LYMPHOCYTES 9.1 % (15-50); MCH 29.3 pg (26.0-34.0); MCHC 31.2 g/dL (31.0-37.0); MCV 93.9 fL (80.0-100.0); MONOCYTES 4.9 % (2-11); NEUTROPHILS 85.6 % (40-80); PLATELET COUNT 182 10x3/uL (130-400); RBC 3.11 10x6/uL (4.00-5.40); RDW 13.7 % (11.5-14.5); WBC 9.3 10x3/uL (4.8-10.8)
[2020-04-07 04:08] LABS: ANION GAP 6.8 mmol/L (8-16); CALCIUM 8.3 mg/dL (8.5-10.1); CARBON DIOXIDE 30.4 mmol/L (21.0-32.0); CREATININE - SERUM 1.6 mg/dL (0.6-1.3); MAGNESIUM - SERUM 2.3 mg/dL (1.8-2.4); PHOSPHOROUS 4.1 mg/dL (2.5-4.9); POTASSIUM - SERUM 4.2 mmol/L (3.5-5.1)
[2020-04-07 09:10] LABS: ANA REFLEX - DIRECT Negative (Negative)
--- NOTE | 2020-04-07 09:58 | NUR ---
Nutrition follow-up: Pt sitting in chair; just finished breakfast. PO intake ~50% average of some meals O2 being weaned Labs reviewed Wt: 179# RDN following.
--- NOTE | 2020-04-07 11:02 | NUR ---
CALLED TO ROOM OUT OF CHAIR TO BSC, TOLERATED TRANSFER WITHOUT DIFFICULTY, NO OTHER ACUTE CHANGE FROM PREVIOUS ASSESSMENT
[2020-04-08] VITALS (23 sets, daily range): BP systolic 104–147; BP diastolic 60–90
--- NOTE | 2020-04-08 01:09 | NUR ---
PT C/O OF "SPASM-LIKE" COUGH, PRN BENZONATATE PO ADMINISTERED PER PT REQUEST/PRN ORDER.
[2020-04-08 03:27] LABS: BASOPHILS 0 % (0-2); EOSINOPHILS 0 % (0-7); HEMATOCRIT 30.9 % (36.0-48.0); HEMOGLOBIN 9.8 g/dL (12-16); IMMATURE GRANULOCYTES 1.5 % (0-5); MCH 29.3 pg (26.0-34.0); MCHC 31.7 g/dL (31.0-37.0); MCV 92.5 fL (80.0-100.0); MEAN PLATELET VOLUME 9.9 fL (7.4-10.4); MONOCYTES 6.1 % (2-11); NEUTROPHILS 83.4 % (40-80); PLATELET COUNT 202 10x3/uL (130-400); RBC 3.34 10x6/uL (4.00-5.40); RDW 13.6 % (11.5-14.5)
[2020-04-08 03:40] LABS: ANION GAP 8.5 mmol/L (8-16); CALCIUM 8.4 mg/dL (8.5-10.1); CARBON DIOXIDE 27.6 mmol/L (21.0-32.0); CREATININE - SERUM 1.3 mg/dL (0.6-1.3); MAGNESIUM - SERUM 2.4 mg/dL (1.8-2.4); PHOSPHOROUS 3.3 mg/dL (2.5-4.9); POTASSIUM - SERUM 4.1 mmol/L (3.5-5.1)
--- NOTE | 2020-04-08 05:45 | NUR ---
AM LABS REVIEWED, NOTHING TO TREAT PER ELECTROLYTE PROTOCOL.
--- NOTE | 2020-04-08 08:29 | NUR ---
0700 REPORT RECIEVED AMD CARE ASSUMED OF PATIENT.. PT IS AWAKE AND APPRPOPRIATE IN HER RESPONSES.. ASSISTED TO THE BSC AT THIS TIME.. 0715 SMALL FORMED BM IN BSC.. ASSISTED TO CHAIR AT THE BEDSIDE.. BREAKFAST SERVED AT THIS TIME AND PATIENT IS FEEDING SELF.. 0800 CONTINUES IN CHAIR AT BEDSIDE.. TALKING ON PHONE TO FAMILY
--- NOTE | 2020-04-08 09:47 | NUR ---
09 CONTINUES OOB IN CHAIR.. PT IS SELF PREFORMING ORAL CARE MEDS GIVEN 929 CONTINUES IN CHAIR TALKING ON PHONE 1000 DR GEORGE IN TO SEE PT..
--- NOTE | 2020-04-08 13:15 | NUR ---
1100 NOON ASSESMENT IS DONE.. DIET SERVED TO PATIENT.. VALARIE IN CHAIR , FEEDING SELF.. 1130 DR DEJESUS IN TO SEE PT UPDATE GIVEN0 1200 LUNCH EATEN.. 1300 ASSISTED BACK TO BED.. PT IS WITHOUT C/O AT THIS TIME..
--- NOTE | 2020-04-08 15:04 | NUR ---
1500 DAUGHTER AT BEDSIDE VISITING WITH PATIENT.. PT REMAINS IN BED..
--- NOTE | 2020-04-08 17:13 | NUR ---
1700 DAUGHTER GONE FROM BEDSIDE.. DINNER SERVED PT IN CHAIR FEEDING SELF..
--- NOTE | 2020-04-08 19:30 | NUR ---
RESUMED CARE OF PT, ASSESSMENT PER FLOWSHEET. PT SITTING UP IN BED IN NO APPARENT DISTRESS, HR SR ON CM, BED LOW, CALL LIGHT IN REACH, DENIES ANY NEEDS AT THIS TIME.
--- NOTE | 2020-04-08 21:33 | NUR ---
HS MEDS ADMINISTERED PER MD ORDER, FRESH ICE WATER PROVIDED PER REQUEST.
--- NOTE | 2020-04-08 23:30 | NUR ---
REASSESSMENT PER FLOWSHEET, NO ACUTE CHANGES NOTED AT THIS TIME. PT DENIES ANY NEEDS AT THIS TIME.
[2020-04-09] VITALS (23 sets, daily range): BP systolic 13–1115; BP diastolic 63–93
--- NOTE | 2020-04-09 03:30 | NUR ---
REASSESSMENT PER FLOWSHEET, NO ACUTE CHANGES NOTED. SB ON CM, VSS, PT DENIES ANY NEEDS, CONT POC.
[2020-04-09 04:18] LABS: BASOPHILS 0 % (0-2); EOSINOPHILS 0 % (0-7); HEMATOCRIT 30.6 % (36.0-48.0); HEMOGLOBIN 9.8 g/dL (12-16); IMMATURE GRANULOCYTES 2.2 % (0-5); LYMPHOCYTES 9.1 % (15-50); MCH 29.6 pg (26.0-34.0); MCV 92.4 fL (80.0-100.0); MEAN PLATELET VOLUME 10.1 fL (7.4-10.4); MONOCYTES 7.1 % (2-11); NEUTROPHILS 81.6 % (40-80); PLATELET COUNT 210 10x3/uL (130-400); RBC 3.31 10x6/uL (4.00-5.40); RDW 13.6 % (11.5-14.5); WBC 9.1 10x3/uL (4.8-10.8)
--- NOTE | 2020-04-09 04:50 | NUR ---
PT RESTING IN BED WATCHING TV IN NO APPARENT DISTRESS, DENIES ANY NEEDS AT THIS TIME, BED LOW, CALL LIGHT IN REACH.
[2020-04-09 04:52] LABS: ALBUMIN 2.4 g/dL (3.4-5.0); BILIRUBIN - TOTAL 0.48 mg/dL (0.2-1.3); CALCIUM 8.1 mg/dL (8.5-10.1); CARBON DIOXIDE 26.2 mmol/L (21.0-32.0); CREATININE - SERUM 1.3 mg/dL (0.6-1.3); POTASSIUM - SERUM 4.2 mmol/L (3.5-5.1); PROTEIN - SERUM 5.6 g/dL (6.4-8.2)
--- NOTE | 2020-04-09 06:23 | NUR ---
AM LABS REVIEWED, NOTHING TO TREAT PER ELECTROLYTE PROTOCOL.
--- NOTE | 2020-04-09 08:13 | NUR ---
0700 REPORT RECIEVED AND CARE ASSUMED OF PATIENT.. XSEE SHIFT ASSESMENT FLOW SHEET FOR FINDINGS.. PT IS AWAKE AND ALERT, BREAKFAST SERVED AND PATIENT FEEDING SELF.. REMAINS ON VAPOTHERM O2 AT 45 %
--- NOTE | 2020-04-09 14:21 | NUR ---
0830 100% BREAKFAST EATEN.. ASSISTED OOB TO BSC PT HAS MODERATE FORMED BM.. 0900 COMPLETE CHG BATH WITH LINEN CHANGES AND VELA CATH CARE.. ASSISTED TO CHAIR AT THE BEDSIDE 1000 REMAINS IN CHAIR TALKING ON PHONE.. 1100 REASSESMENT DONE.. 1130 LUNCH SERVED REMAINS IN CHAIR FEEDING SELF.. 1230 DR DEJESUS IN TO SEE PATIENT.. UPDATE GIVEN AND ORDERS RECIEVED REMINDED DR OF PT C/O MOUTH IRRITATION NYSTATIN ORDERED.. 1330 O2 CHANGED TO HIGH FLOW 4 LITERS BY RT PER DR DEJESUS...NYSTAIN SWISH AND SWALLOW GIVEN..
--- NOTE | 2020-04-09 15:37 | NUR ---
1500 DAUGHTER IN TO SEE PATIENT.. SHE IS WANTING TO WASH PTS HAIR.. SHAMPOO CAP GIVEN TO HER PATIENT REMAINS IN CHAIR..
--- NOTE | 2020-04-09 18:00 | NUR ---
1700 DAUGHTER GONE FROM PT ROOM.. DINNER SERVED AND I AND O DONE,, 1800 100% DIET EATEN..
--- NOTE | 2020-04-09 19:00 | NUR ---
REPORT RECEVIED FROM THE OFF GOING RN. SEE ASSESSMENT IN THE PTS FLOW SHEET. PT SITTING OOB IN THE CHAIR. PT IN A PLEASAT MOOD. PT INSTRUCTED TO USE HER IS 10X'S/H. PT ABLE TO PULL ABOUT 750. PT ON 4L VIA NC. VSS. DENIES PAIN. PT REQUEST ORAL HYGIENE PRODUCTS AND IT WAS PROVIDED. CALL LIGHT IN REACH. WILL CONT POC.
--- NOTE | 2020-04-09 21:00 | NUR ---
PT RESTING WITH HER EYES CLOSED IN BED. VSS. CALL LIGHT IN [facility]. WILL CONT POC.
--- NOTE | 2020-04-09 23:00 | NUR ---
REASSESSMENT COMPLETED. SEE FLOW SHEET.
[2020-04-10] VITALS (11 sets, daily range): BP systolic 102–127; BP diastolic 53–87
--- NOTE | 2020-04-10 03:00 | NUR ---
REASSESSMET COMPLETED. SEE FLOW SHEET. CALL LIGHT IN REACH. WILL CONT POC.
[2020-04-10 03:50] LABS: BASOPHILS 0.1 % (0-2); EOSINOPHILS 0 % (0-7); HEMATOCRIT 32.2 % (36.0-48.0); HEMOGLOBIN 10.1 g/dL (12-16); IMMATURE GRANULOCYTES 2.3 % (0-5); LYMPHOCYTES 7.5 % (15-50); MCH 29.4 pg (26.0-34.0); MCHC 31.4 g/dL (31.0-37.0); MCV 93.6 fL (80.0-100.0); MEAN PLATELET VOLUME 10.1 fL (7.4-10.4); MONOCYTES 5.4 % (2-11); NEUTROPHILS 84.7 % (40-80); PLATELET COUNT 234 10x3/uL (130-400); RBC 3.44 10x6/uL (4.00-5.40); RDW 13.7 % (11.5-14.5); WBC 10.8 10x3/uL (4.8-10.8)
[2020-04-10 04:17] LABS: ALBUMIN 2.5 g/dL (3.4-5.0); ANION GAP 8.6 mmol/L (8-16); BILIRUBIN - TOTAL 0.47 mg/dL (0.2-1.3); CALCIUM 8.1 mg/dL (8.5-10.1); CARBON DIOXIDE 28.5 mmol/L (21.0-32.0); CREATININE - SERUM 1.2 mg/dL (0.6-1.3); POTASSIUM - SERUM 4.1 mmol/L (3.5-5.1); PROTEIN - SERUM 5.7 g/dL (6.4-8.2)
[2020-04-10 04:34] LABS: % SATURATION 16 % (15-55); IRON 49 ug/dl (35-150); TOTAL IRON BIND CAPACITY 289 ug/dl (260-445); UNSAT IRON BIND CAPACITY 240 ug/dl (150-375)
--- NOTE | 2020-04-10 06:26 | NUR ---
PT TOOK AM MEDS WITH NO ISSUES. WILL CONT POC.
--- NOTE | 2020-04-10 08:07 | NUR ---
0700 BEDSIDE REPORT RECEIVED FROM MANUEL BARNHART AWAKE ALERT ASSESSMENT COMPLETE PULLIMG 750 ON INSENTIVE SPIROMETER WEARING BPAP AT 40% O2 SAT 100% FOLLOWS INSTRUCTIONS
--- NOTE | 2020-04-10 08:09 | NUR ---
0800 RT REMOVED BPAP AND PLACED ON 4L HFNC.
--- NOTE | 2020-04-10 10:07 | NUR ---
0900 STANDBY ASSIST PT GOT UP TO BED SIDE COMMODE HARD BALLS STOOL X 4 NOTED SPECIMEN COLLECTED FOR OCCULT BLOOD SENT TO LAB
--- NOTE | 2020-04-10 10:09 | NUR ---
[address] BONILLA IF OK WITH HIM TO TRANSFER PATIENT TO FLOOR
--- NOTE | 2020-04-10 10:09 | NUR ---
Nutrition follow-up: Diet: low sodium PO intake 50-100% of meals Labs reviewed Wt: 185# PO intake improved RDN following.
--- NOTE | 2020-04-10 10:10 | NUR ---
1010 DR LEGGETT PRESENT AND ALSO AGREEDED TO FLOOR TRANSFER
--- NOTE | 2020-04-10 10:16 | NUR ---
1015 TRANSFER ORDERS WRITTEN
--- NOTE | 2020-04-10 13:37 | NUR ---
1100 REMAINS UP IN BEDSIDE CHAIR WAITING FOR LUNCH TO ARRIVE
--- NOTE | 2020-04-10 13:39 | NUR ---
1300 APPETITE GOOD SITTING IN CHAIR TALKING ON PHONE WITH DAUGHTER
--- NOTE | 2020-04-10 13:40 | NUR ---
1340 PATIENT RETURED TO BED TO TAKE A NAP. VELA DISCONTINUED DTV PATIENT REQUESTED TO HAVE DEPENDS ON WHILE TAKING A KNAP. ASSISTED PT IN PULLING UP DEPENDS.
--- NOTE | 2020-04-10 15:59 | NUR ---
1531 RECEIVED T0 R00M 2308 FROM PARISA BARNHART IN RECOVERY ROOM ASSESSMENT COMPLETE TRIPLE LUMEN CENTRAL NOTED TO LEFT IJ SITE CDI WITH CVP SETUP RIGHT RADIAL ART LINE NOTED TO RUE ZEROD CVP AND ART LINE PT IS SQUIRMING ON BED ASKED PT NO LIE STRAIGHT IN BED PATIENT ALERT AND AWAKE ANSWERS QUESTIONS FOLLOWS COMMANDS 5 SMALL INCISION SITES NOTED TO ABDOMIN 3 HAVE STERISTRIPS INTACT ELISE DRAINS X 2 WITH BLOOD TINGED SEROUS DRAINAGE NOTED ROOM AIR SATING 95%
--- NOTE | 2020-04-10 18:05 | NUR ---
TO ROOM 2222 FROM ICU VIA WHEELCHAIR AT 1700. ASSIST UP TO BATHROOM AND BACK TO CHAIR.DINNER TRAY TO PATIENT.CALL LIGHT IN REACH
[2020-04-11 01:30] VITALS: BP 106/45
--- NOTE | 2020-04-11 01:37 | NUR ---
ALERT AND ORENTED ABLE TO VOICE NEEDS AND WANTS TO STAFF. UP WITH ASSIST TO BATHROOM. CALL LIGHT AND WATER IN REACH.
[2020-04-11 06:27] VITALS: BP 104/62
[2020-04-11 08:00] VITALS: BP 113/64
--- NOTE | 2020-04-11 09:39 | NUR ---
ASSITED PT TO RESTROOM AND PLACED SHOWER CHAIR IN SHOWER FOR PT. CHANGED PT LINENS WHILE PT IN SHOWER, PT ABLE TO GIVE SELF SHOWER WITH NO ASSISTANCE, STAYED IN ROOM IN CASE PT NEEDED ME. NO /CO PAIN, NO NEEDS VOICD, CL IN REACH CONTINUE WITH PLAN OF CARE
--- NOTE | 2020-04-11 09:50 | NUR ---
PT HAS DRESSING ON LEFT GROIN AREA DATED 04/01/20 FROM ARTERIOGRAM, REMOVED DRESSING, SITE IS CLEAN DRY AND INTACT, PT HAS BRUISING ALL OVER ABDOMEN, EXPLAINED THAT THIS IS DUE TO LOVENOX INJECTIONS, PT WEARING O2 AT 2.5L JUST CAME OUT OF SHOWER AND STATED SHE WAS A LITTLE TIRED BUT FELT BETTER. CONTINUE WITH PLAN OF CARE
[2020-04-11 12:00] VITALS: BP 118/63
--- NOTE | 2020-04-11 14:41 | MORECARE ---
CASE MANAGEMENT DISCHARGE SUMMARY PATIENT: EDWIGE PALACIOS UNIT: [id number] ADM DATE: 03/31/20 AGE: 79 : 39 SEX: F ROOM/BED: D.2222 AUTHOR: JATIN,DOC PHYSICIAN: REFERRING PHYSICIAN: MARIBELL LEGGETT MD DATE OF SERVICE: 04/11/20 Discharge Plan Patient Name: EDWIGE PALACIOS Facility: [facility]:[place] : 1940 Planned Disposition: Home Anticipated Discharge Date: Discharge Date: Expected LOS: Initial Reviewer: [email or web address] Initial Review Date: 03/31/2020 Generated: 04/11/20 3:41 pm Comments DCP- Discharge Planning Updated by [email or web address]: Charissa Newton on 04/11/20 1:[address] MET WITH PATIENT AND FAMILY ABOUT DISCHARGE PLAN. SHE IS INDEPENDENT WITH HER CARE. SHE PLANS TO RETURN HOME AND HER DAUGHTER WHO IS A NURSE WILL BE STAYING WITH HER. SHE DID NOT WANT HOME HEALTH. WE WILL GET A WALK TEST TO SEE IF SHE NEEDS HOME O2. SHE HAS A NEBULIZER AND GETS HER MEDS FROM [facility] FOR 13.00. IMM SERVED AND EXPLAINED. SHE WOULD LIKE A SHOWER CHAIR & DID NOT CARE WHERE WE GOT IT FROM. CM WILL CONTINUE TO FOLLOW AND ASSIST NEEDED DCP- Discharge Planning Updated by [email or web address]: Balbina Jansen on 04/04/20 2:[address] Patient Name: EDWIGE PALACIOS Admission Status: ER Accout number: [id number] Admission Date: 03-31-2020 : 1940 Admission Diagnosis:SHORTNESS OF BREATH Attending: MARIBELL LEGGETT Current LOS: 4 Anticipated DC Date: Planned Disposition: Home Primary Insurance: MEDICARE A & B Discharge Planning Comments: CM met with patient at bedside after explaining CM role and obtaining verbal consent. Patient lives at home alone where she is independent with her care and plans to return there upon discharge. Patient feels this would be a safe discharge. CM discussed availability / needs of home health and medical equipment. Patient denies any discharge needs at this time. Patient states she will have her family drive her home upon discharge. Patient may need walk test upon discharge. CM will continue to follow and assist as needed with discharge planning / needs. Diamond Sizer: Balbinaaleah Galvanbisi REYNOSO - Discharge Planning Initial Assessment Updated by [email or web address]: Balbina Jansen on 04/04/20 2:58 pm * Is the patient Alert and Oriented? Yes * How many steps to enter\exit or inside your home? * PCP [facility] * [facility] * Preadmission Environment Home Alone * ADLs Independent * Equipment Walker * List name and contact numbers for known caregivers / representatives who currently or will assist patient after discharge: TERRY VILLASENOR - DAUGHTER- [phone] * Verbal permission to speak to the caregivers and representatives has been obtained from the patient. Yes * Community resources currently utilized None * Additional services required to return to the preadmission environment? No * Can the patient safely return to the preadmission environment? Yes * Has this patient been hospitalized within the prior 30 days at any hospital? No Coverage Notice Reviewer: [email or web address] Doe Newton Notice Issued Date-Time: 04/11/2020 14:20 Notice Type: IM Discharge Notice Notice Delivered To: Patient Relationship to Patient: Custom Wood Stair Builder Name: Delivery Method: HAND - Hand Delivered Lisa Days: Prior Verbal Notification: Recipient Understood Notice: Yes Recipient Signature: Yes Med Rec Note Co-signed by Attending: Coverage Notice Comment: Reviewer: [id number] Newton Notice Issued Date-Time: 04/11/2020 14:20 Notice Type: Patient Choice Letter Notice Delivered To: Patient Relationship to Patient: Custom Wood Stair Builder Name: Delivery Method: HAND - Hand Delivered Lisa Days: Prior Verbal Notification: Recipient Understood Notice: Yes Recipient Signature: Yes Med Rec Note Co-signed by Attending: Coverage Notice Comment: ALEXANDR FOR SHOWER CHAIR, DID NOT CARE Last DP export: 04/04/20 2:05 p Patient Name: EDWIGE PALACIOS Page [id number] at 1441 All edits/amendments must be made on the electronic document DICTATION DATE: 04/11/20 1441 TANK BUILDER HELPER: HUBER 04/11/20 1441 RPT#: [id number] DC DATE: STATUS: ADM IN [facility] [address] [place] [address] END OF REPORT
--- NOTE | 2020-04-11 14:50 | MORECARE ---
CASE MANAGEMENT DISCHARGE SUMMARY PATIENT: EDWIGE PALACIOS UNIT: [id number] ADM DATE: 03/31/20 AGE: 79 : 39 SEX: F ROOM/BED: D.2222 AUTHOR: JATINDOC PHYSICIAN: REFERRING PHYSICIAN: MARIBELL LEGGETT MD DATE OF SERVICE: 04/11/20 Discharge Plan Patient Name: EDWIGE PALACIOS Facility: [facility]:[place] : 1940 Planned Disposition: Home Anticipated Discharge Date: Discharge Date: Expected LOS: Initial Reviewer: [email or web address] Initial Review Date: 03/31/2020 Generated: 04/11/20 3:50 pm Comments DCP- Discharge Planning Updated by [email or web address]: Charissa Newton on 04/11/20 1:[address] I CALLED [facility] TO GET A SHOWER CHAIR AND THEY STATED THAT MEDICARE AND [employer] WILL NOT PAY FOR THE SHOWER CHAIR,, BUT IF YOU WHEN TO THE [place] THEY WILL HELP YOU GET ONE. I WILL EXPLAIN THIS TO THE PATIENT. CM WILL CONTINUE TO FOLLOW AND ASSIST NEEDED DCP- Discharge Planning Updated by [email or web address]: Charissa Newton on 04/11/20 1:[address] MET WITH PATIENT AND FAMILY ABOUT DISCHARGE PLAN. SHE IS INDEPENDENT WITH HER CARE. SHE PLANS TO RETURN HOME AND HER DAUGHTER WHO IS A NURSE WILL BE STAYING WITH HER. SHE DID NOT WANT HOME HEALTH. WE WILL GET A WALK TEST TO SEE IF SHE NEEDS HOME O2. SHE HAS A NEBULIZER AND GETS HER MEDS FROM [facility] FOR 13.00. IMM SERVED AND EXPLAINED. SHE WOULD LIKE A SHOWER CHAIR & DID NOT CARE WHERE WE GOT IT FROM. CM WILL CONTINUE TO FOLLOW AND ASSIST NEEDED DCP- Discharge Planning Updated by [id number]: Balbina Jansen on 04/04/20 2:[address] Patient Name: EDWIGE PALACIOS Admission Status: ER Accout number: [id number] Admission Date: 03-31-2020 : 1940 Admission Diagnosis:SHORTNESS OF BREATH Attending: MARIBELL LEGGETT Current LOS: 4 Anticipated DC Date: Planned Disposition: Home Primary Insurance: MEDICARE A & B Discharge Planning Comments: CM met with patient at bedside after explaining CM role and obtaining verbal consent. Patient lives at home alone where she is independent with her care and plans to return there upon discharge. Patient feels this would be a safe discharge. CM discussed availability / needs of home health and medical equipment. Patient denies any discharge needs at this time. Patient states she will have her family drive her home upon discharge. Patient may need walk test upon discharge. CM will continue to follow and assist as needed with discharge planning / needs. End Polisher: Balbina REYNOSO - Discharge Planning Initial Assessment Updated by [id number]: Balbina Jansen on 04/04/20 2:58 pm * Is the patient Alert and Oriented? Yes * How many steps to enter\exit or inside your home? * PCP JACOB * [facility] * Preadmission Environment Home Alone * ADLs Independent * Equipment Walker * List name and contact numbers for known caregivers / representatives who currently or will assist patient after discharge: TERRY VILLASENOR - [facility]- [phone] * Verbal permission to speak to the caregivers and representatives has been obtained from the patient. Yes * Community resources currently utilized None * Additional services required to return to the preadmission environment? No * Can the patient safely return to the preadmission environment? Yes * Has this patient been hospitalized within the prior 30 days at any hospital? No Coverage Notice Reviewer: [id number] Newton Notice Issued Date-Time: 04/11/2020 14:20 Notice Type: IM Discharge Notice Notice Delivered To: Patient Relationship to Patient: Health Services Information Specialist Name: Delivery Method: HAND - Hand Delivered Lisa Days: Prior Verbal Notification: Recipient Understood Notice: Yes Recipient Signature: Yes Med Rec Note Co-signed by Attending: Coverage Notice Comment: Reviewer: [id number] Newton Notice Issued Date-Time: 04/11/2020 14:20 Notice Type: Patient Choice Letter Notice Delivered To: Patient Relationship to Patient: Health Services Information Specialist Name: Delivery Method: HAND - Hand Delivered Lisa Days: Prior Verbal Notification: Recipient Understood Notice: Yes Recipient Signature: Yes Med Rec Note Co-signed by Attending: Coverage Notice Comment: ALEXANDR FOR SHOWER CHAIR, DID NOT CARE Last DP export: 04/11/20 1:41 p Patient Name: EDWIGE PALACIOS Page [phone] at 1450 All edits/amendments must be made on the electronic document DICTATION DATE: 04/11/201449 STORAGE CONSULTANT: HUBER 04/11/201449 RPT#: [id number] DC DATE: STATUS: ADM IN [facility] [address] [place] [address] END OF REPORT
--- NOTE | 2020-04-11 15:54 | NUR ---
I have reviewed this patient and I concur with the Shift Assessment completed by the Licensed Practical Nurse today this shift.
[2020-04-11 16:00] VITALS: BP 112/62
[2020-04-11 20:00] VITALS: BP 108/55
[2020-04-12 00:05] VITALS: BP 119/60
--- NOTE | 2020-04-12 00:16 | NUR ---
PT RESTING IN BED. EYES CLOSED. NO SIGNS OF DISTRESS. BREATHING EVEN AND UNLABORED. IV SITE LT UPPER ARM MIDLINE. DRESSING CLEAN DRY AND INTACT. NO SIGNS OF INFECTION OR INFULTRATION. SKIN GENERLIZED BRUISES. 1LO2 NASAL CANNULA PRN. BOWEL SOUNDS ACTIVE. NO LOWER LEG SWELLING PRESENT. WILL CONTINUE PLAN OF CARE. CALL LIGHT IN REACH. BED LOWERED AND LOCKED. BED RAILS UPX2.
--- NOTE | 2020-04-12 03:35 | NUR ---
I have reviewed this patient and I concur with the Shift Assessment completed by the Licensed Practical Nurse today this shift.
[2020-04-12 03:59] VITALS: BP 97/45
[2020-04-12 04:25] LABS: BASOPHILS 0.1 % (0-2); EOSINOPHILS 0.4 % (0-7); HEMATOCRIT 30.9 % (36.0-48.0); HEMOGLOBIN 9.8 g/dL (12-16); IMMATURE GRANULOCYTES 1.8 % (0-5); LYMPHOCYTES 13.3 % (15-50); MCH 29.6 pg (26.0-34.0); MCHC 31.7 g/dL (31.0-37.0); MCV 93.4 fL (80.0-100.0); MEAN PLATELET VOLUME 9.8 fL (7.4-10.4); MONOCYTES 8.5 % (2-11); NEUTROPHILS 75.9 % (40-80); PLATELET COUNT 239 10x3/uL (130-400); RBC 3.31 10x6/uL (4.00-5.40); RDW 13.8 % (11.5-14.5); WBC 11.2 10x3/uL (4.8-10.8)
[2020-04-12 04:36] LABS: ANION GAP 5.7 mmol/L (8-16); CARBON DIOXIDE 32.1 mmol/L (21.0-32.0); CREATININE - SERUM 1.2 mg/dL (0.6-1.3); POTASSIUM - SERUM 3.8 mmol/L (3.5-5.1)
[2020-04-12 08:34] VITALS: BP 119/71
--- NOTE | 2020-04-12 08:52 | NUR ---
PT IS SITTING UP AT BEDSIDE AND READY FOR DC, PT IS DRESSED AND STATED SHE IS WAITING ON PAPERS, NO DC ORDERS SEEN YET. PT STATED WAITING ON SHOWER CHAIR WELL, SPOKE TO CASE MANAGEMENT AND WAS TOLD [facility] WILL NOT PAY FOR BATH SUPPLIES, WILL RELAY MESSAGE TO PT
[2020-04-12] MEDS ORDERED: LISINOPRIL2.5 MG PO (11:24)
[2020-04-12] MEDS ORDERED: CARDIZEM CD240 MG PO (11:25)
--- NOTE | 2020-04-12 11:41 | NUR ---
I have reviewed this patient and I concur with the Shift Assessment completed by the Licensed Practical Nurse today this shift.
[2020-04-12] MEDS ORDERED: PREDNISONE10 MG PO (11:45)
--- NOTE | 2020-04-12 11:51 | MORECARE ---
CASE MANAGEMENT DISCHARGE SUMMARY PATIENT: EDWIGE PALACIOS UNIT: [id number] ADM DATE: 03/31/20 AGE: 79 : 39 SEX: F ROOM/BED: D.2222 AUTHOR: JATINDOC PHYSICIAN: REFERRING PHYSICIAN: MARIBELL LEGGETT MD DATE OF SERVICE: 04/12/20 Discharge Plan Patient Name: EDWIGE PALACIOS Facility: [facility]:[place] : 1940 Planned Disposition: Home Anticipated Discharge Date: Discharge Date: Expected LOS: Initial Reviewer: [id number] Initial Review Date: 03/31/2020 Generated: 04/12/20 12:50 pm Comments DCP- Discharge Planning Updated by [email or web address]: Christine Thapa on 04/12/20 10:[address] Patient Name: EDWIGE PALACIOS Encounter No: [id number] : 1940 Primary Insurance: MEDICARE A & B Anticipated DC Date: Planned Disposition: Home External Planned Provider: : DCP follow-up note: Patient and family in agreement with discharge plan. No changes to plan. WALK TEST DONE YESTERDAY AND PASSED. Case management will follow and assist as needed. Christine Thapa DCP- Discharge Planning Updated by [email or web address]: Charissa Newton on 04/11/20 1:[address] I CALLED [facility] TO GET A SHOWER CHAIR AND THEY STATED THAT MEDICARE AND WILL NOT PAY FOR THE SHOWER CHAIR,, BUT IF YOU WHEN TO THE [place] THEY WILL HELP YOU GET ONE. I WILL EXPLAIN THIS TO THE PATIENT. CM WILL CONTINUE TO FOLLOW AND ASSIST NEEDED DCP- Discharge Planning Updated by [id number]: Charissa Newton on 04/11/20 1:[address] MET WITH PATIENT AND FAMILY ABOUT DISCHARGE PLAN. SHE IS INDEPENDENT WITH HER CARE. SHE PLANS TO RETURN HOME AND HER DAUGHTER WHO IS A NURSE WILL BE STAYING WITH HER. SHE DID NOT WANT HOME HEALTH. WE WILL GET A WALK TEST TO SEE IF SHE NEEDS HOME O2. SHE HAS A NEBULIZER AND GETS HER MEDS FROM [facility] FOR 13.00. IMM SERVED AND EXPLAINED. SHE WOULD LIKE A SHOWER CHAIR & DID NOT CARE WHERE WE GOT IT FROM. CM WILL CONTINUE TO FOLLOW AND ASSIST NEEDED DCP- Discharge Planning Updated by [id number]: Balbina Justyna on 04/04/20 2:[address] Patient Name: EDWIGE PALACIOS Admission Status: ER Accout number: [id number] Admission Date: 03-31-2020 : 1940 Admission Diagnosis:SHORTNESS OF BREATH Attending: MARIBELL LEGGETT Current LOS: 4 Anticipated DC Date: Planned Disposition: Home Primary Insurance: MEDICARE A & B Discharge Planning Comments: CM met with patient at bedside after explaining CM role and obtaining verbal consent. Patient lives at home alone where she is independent with her care and plans to return there upon discharge. Patient feels this would be a safe discharge. CM discussed availability / needs of home health and medical equipment. Patient denies any discharge needs at this time. Patient states she will have her family drive her home upon discharge. Patient may need walk test upon discharge. CM will continue to follow and assist as needed with discharge planning / needs. Ordering Box Operator: Balbina Jansen DCPIA - Discharge Planning Initial Assessment Updated by [id number]: Balbina Justyna on 04/04/20 2:58 pm * Is the patient Alert and Oriented? Yes * How many steps to enter\exit or inside your home? * PCP PARROT * [facility] * Preadmission Environment Home Alone * ADLs Independent * Equipment Walker * List name and contact numbers for known caregivers / representatives who currently or will assist patient after discharge: TERRY VILLASENOR - DAUGHTER- [phone] * Verbal permission to speak to the caregivers and representatives has been obtained from the patient. Yes * Community resources currently utilized None * Additional services required to return to the preadmission environment? No * Can the patient safely return to the preadmission environment? Yes * Has this patient been hospitalized within the prior 30 days at any hospital? No Coverage Notice Reviewer: [id number] Doe Newton Notice Issued Date-Time: 04/11/2020 14:20 Notice Type: IM Discharge Notice Notice Delivered To: Patient Relationship to Patient: [employer] Layout Name: Delivery Method: HAND - Hand Delivered Lisa Days: Prior Verbal Notification: Recipient Understood Notice: Yes Recipient Signature: Yes Med Rec Note Co-signed by Attending: Coverage Notice Comment: Reviewer: [id number] Newton Notice Issued Date-Time: 04/11/2020 14:20 Notice Type: Patient Choice Letter Notice Delivered To: Patient Relationship to Patient: [employer] Layout Name: Delivery Method: HAND - Hand Delivered Lisa Days: Prior Verbal Notification: Recipient Understood Notice: Yes Recipient Signature: Yes Med Rec Note Co-signed by Attending: Coverage Notice Comment: ALEXANDR FOR SHOWER CHAIR, DID NOT CARE Last DP export: 04/11/20 1:50 p Patient Name: EDWIGE PALACIOS Page [phone] at 1151 All edits/amendments must be made on the electronic document DICTATION DATE: 04/12/20 1150 REFUELING RAMPMAN: HUBER 04/12/20 1150 RPT#: [id number] DC DATE: STATUS: ADM IN [facility] [address] [place] [address] END OF REPORT
--- NOTE | 2020-04-12 13:00 | NUR ---
DC PT MIDLINE WITH LINE INTACT, PT TOLERATED WELL. DAUGHTER AT BEDSIDE, REQUESTED ALL MEDICAL RECORDS ESPECIALLY THOSE FROM ICU, HAD PT COMPLETE REQUEST FORM. ALL QUESTIONS ANSWERED, PT TAKEN DOWN VIA WC BY ROYA
--- NOTE | 2020-04-13 08:21 | MORECARE ---
CASE MANAGEMENT DISCHARGE SUMMARY PATIENT: EDWIGE PALACIOS UNIT: [id number] ADM DATE: 03/31/20 AGE: 79 : 39 SEX: F ROOM/BED: D.2222 AUTHOR: JATIN,DOC PHYSICIAN: REFERRING PHYSICIAN: MARIBELL LEGGETT MD DATE OF SERVICE: 04/13/20 Discharge Plan Patient Name: EDWIGE PALACIOS Facility: [facility]:[place] : 1940 Planned Disposition: Home Anticipated Discharge Date: Discharge Date: 04/12/2020 Expected LOS: 0 Initial Reviewer: [email or web address] Initial Review Date: 03/31/2020 Generated: 04/13/20 9:20 am Comments DCP- Discharge Planning Updated by [id number]: Christine Thapa on 04/12/20 10:[address] Patient Name: EDWIGE PALACIOS Encounter No: [id number] : 1940 Primary Insurance: MEDICARE A & B Anticipated DC Date: Planned Disposition: Home External Planned Provider: : DCP follow-up note: Patient and family in agreement with discharge plan. No changes to plan. WALK TEST DONE YESTERDAY AND PASSED. Case management will follow and assist as needed. Christine Thapa DCP- Discharge Planning Updated by [email or web address]: Charissa Newton on 04/11/20 1:[address] I CALLED [facility]ACK[facility] TO GET A SHOWER CHAIR AND THEY STATED THAT MEDICARE AND [employer] WILL NOT PAY FOR THE SHOWER CHAIR,, BUT IF YOU WHEN TO THE [place] THEY WILL HELP YOU GET ONE. I WILL EXPLAIN THIS TO THE PATIENT. CM WILL CONTINUE TO FOLLOW AND ASSIST NEEDED DCP- Discharge Planning Updated by [id number]: Charissa Newton on 04/11/20 1:[address] MET WITH PATIENT AND FAMILY ABOUT DISCHARGE PLAN. SHE IS INDEPENDENT WITH HER CARE. SHE PLANS TO RETURN HOME AND HER DAUGHTER WHO IS A NURSE WILL BE STAYING WITH HER. SHE DID NOT WANT HOME HEALTH. WE WILL GET A WALK TEST TO SEE IF SHE NEEDS HOME O2. SHE HAS A NEBULIZER AND GETS HER MEDS FROM [facility] FOR 13.00. IMM SERVED AND EXPLAINED. SHE WOULD LIKE A SHOWER CHAIR & DID NOT CARE WHERE WE GOT IT FROM. CM WILL CONTINUE TO FOLLOW AND ASSIST NEEDED DCP- Discharge Planning Updated by [email or web address]: Balbina Justyna on 04/04/20 2:[address] Patient Name: EDWIGE PALACIOS Admission Status: ER Accout number: [id number] Admission Date: 03-31-2020 : 1940 Admission Diagnosis:SHORTNESS OF BREATH Attending: MARIBELL LEGGETT Current LOS: 4 Anticipated DC Date: Planned Disposition: Home Primary Insurance: MEDICARE A & B Discharge Planning Comments: CM met with patient at bedside after explaining CM role and obtaining verbal consent. Patient lives at home alone where she is independent with her care and plans to return there upon discharge. Patient feels this would be a safe discharge. CM discussed availability / needs of home health and medical equipment. Patient denies any discharge needs at this time. Patient states she will have her family drive her home upon discharge. Patient may need walk test upon discharge. CM will continue to follow and assist as needed with discharge planning / needs. Medical Records Administrator: Balbina Jansen DCPIA - Discharge Planning Initial Assessment Updated by [email or web address]: Balbina Justyna on 04/04/20 2:58 pm * Is the patient Alert and Oriented? Yes * How many steps to enter\exit or inside your home? * PCP PARROT * [facility] * Preadmission Environment Home Alone * ADLs Independent * Equipment Walker * List name and contact numbers for known caregivers / representatives who currently or will assist patient after discharge: TERRY VILLASENOR - [facility]- [phone] * Verbal permission to speak to the caregivers and representatives has been obtained from the patient. Yes * Community resources currently utilized None * Additional services required to return to the preadmission environment? No * Can the patient safely return to the preadmission environment? Yes * Has this patient been hospitalized within the prior 30 days at any hospital? No Coverage Notice Reviewer: [id number] Doe Newton Notice Issued Date-Time: 04/11/2020 14:20 Notice Type: IM Discharge Notice Notice Delivered To: Patient Relationship to Patient: Medical Imaging Specialist Name: Delivery Method: HAND - Hand Delivered Lisa Days: Prior Verbal Notification: Recipient Understood Notice: Yes Recipient Signature: Yes Med Rec Note Co-signed by Attending: Coverage Notice Comment: Reviewer: [id number] Newton Notice Issued Date-Time: 04/11/2020 14:20 Notice Type: Patient Choice Letter Notice Delivered To: Patient Relationship to Patient: Medical Imaging Specialist Name: Delivery Method: HAND - Hand Delivered Lisa Days: Prior Verbal Notification: Recipient Understood Notice: Yes Recipient Signature: Yes Med Rec Note Co-signed by Attending: Coverage Notice Comment: ALEXANDR FOR SHOWER CHAIR, DID NOT CARE Last DP export: 04/12/20 10:51 a Patient Name: EDWIGE PALACIOS Page [phone] at 0821 All edits/amendments must be made on the electronic document DICTATION DATE: 04/13/20820 WATERPROOFING MACHINE OPERATOR: HUBER 04/13/20820 RPT#: [id number] DC DATE:04/12/20 STATUS: DIS IN [facility] [address] [place] [address] END OF REPORT
== END 2020-04-12 14:37 | disposition home or self-care (01) | DRG 246 ==
LOC: D.ER → D.ICU 01:09 → D.M2 01:09 → D.MS 01:09 → D.ICU 04-04 14:40 → D.MS 04-10 17:22
PROVIDERS: Family Medicine; Internal Medicine Cardiovascular Disease; Internal Medicine Pulmonary Disease; ADMIT Internal Medicine Nephrology; ATTEND Internal Medicine Nephrology
PROC: B2111ZZ Fluoroscopy of Multiple Coronary Arteries using Low Osmolar Contrast (ICD-10-PCS; 2020-04-01)
PROC: B2151ZZ Fluoroscopy of Left Heart using Low Osmolar Contrast (ICD-10-PCS; 2020-04-01)
PROC: 027034Z Dilation of Coronary Artery, One Artery with Drug-eluting Intraluminal Device, Percutaneous Approach (ICD-10-PCS; principal; 2020-04-01 09:15)
PROC: 4A023N7 Measurement of Cardiac Sampling and Pressure, Left Heart, Percutaneous Approach (ICD-10-PCS; 2020-04-01 09:15)
PROC: 5A09457 Assistance with Respiratory Ventilation, 24-96 Consecutive Hours, Continuous Positive Airway Pressure (ICD-10-PCS; 2020-04-02)
DX: I11.0 Hypertensive heart disease with heart failure (principal); I21.A1 Myocardial infarction type 2; I50.21 Acute systolic (congestive) heart failure; J96.01 Acute respiratory failure with hypoxia; J18.9 Pneumonia, unspecified organism; N17.9 Acute kidney failure, unspecified; N39.0 Urinary tract infection, site not specified; T82.855A Stenosis of coronary artery stent, initial encounter; J44.0 Chronic obstructive pulmonary disease with (acute) lower respiratory infection; J44.1 Chronic obstructive pulmonary disease with (acute) exacerbation; E87.1 Hypo-osmolality and hyponatremia; E78.5 Hyperlipidemia, unspecified; E03.9 Hypothyroidism, unspecified; I25.10 Atherosclerotic heart disease of native coronary artery without angina pectoris; I45.10 Unspecified right bundle-branch block; I48.0 Paroxysmal atrial fibrillation; Y83.9 Surgical procedure, unspecified as the cause of abnormal reaction of the patient, or of later complication, without mention of misadventure at the time of the procedure; I08.1 Rheumatic disorders of both mitral and tricuspid valves; B96.1 Klebsiella pneumoniae [K. pneumoniae] as the cause of diseases classified elsewhere

== ENCOUNTER → 2020-05-05 11:11 | Outpatient (CLI) | payer MEDICARE, OTHER ==
[2020-04-02 12:29] VITALS: BMI 26.9
[~2020-05-05 11:11] MED LIST changes: +CARDIZEM CD240 MG PO; +LASIX40 MG PO; +LIPITOR10 MG PO; +LISINOPRIL2.5 MG PO; +PACERONE100 MG PO; +PREDNISONE10 MG PO; +PROCARDIA XL60 MG PO
== END | disposition home or self-care (01) ==
LOC: D.RT 11:11
PROVIDERS: ATTEND Internal Medicine Pulmonary Disease
DX: R06.09 Other forms of dyspnea (principal)

== ENCOUNTER 2020-05-08 17:08 | Inpatient (IN) | payer MEDICARE, OTHER ==
[~2020-05-08] VITALS: Ht 170.2 cm; Wt 77.1 kg
[~2020-05-08 17:08] MED LIST changes: -LASIX40 MG PO
[2020-05-08 18:13] LABS: BASOPHILS 0.1 % (0-2); EOSINOPHILS 0.1 % (0-7); HEMATOCRIT 31.2 % (36.0-48.0); HEMOGLOBIN 10.1 g/dL (12-16); IMMATURE GRANULOCYTES 1.9 % (0-5); LYMPHOCYTES 23.7 % (15-50); MCH 29.5 pg (26.0-34.0); MCHC 32.4 g/dL (31.0-37.0); MCV 91.2 fL (80.0-100.0); MEAN PLATELET VOLUME 8.9 fL (7.4-10.4); MONOCYTES 7.6 % (2-11); NEUTROPHILS 66.6 % (40-80); PLATELET COUNT 217 10x3/uL (130-400); RBC 3.42 10x6/uL (4.00-5.40); WBC 7.4 10x3/uL (4.8-10.8)
[2020-05-08 18:22] LABS: APTT 26.4 SECONDS (22.8-39.4); INR 1.03 (0.85-1.17); PROTIME 13.4 SECONDS (11.6-15.0)
[2020-05-08 19:00] VITALS: BP 123/74
[2020-05-08 19:08] LABS: ANION GAP 14.3 mmol/L (8-16); CALCIUM 8.6 mg/dL (8.5-10.1); CARBON DIOXIDE 23.1 mmol/L (21.0-32.0); CREATININE - SERUM 1.6 mg/dL (0.6-1.3); POTASSIUM - SERUM 4.4 mmol/L (3.5-5.1)
[2020-05-08 19:14] LABS: ALBUMIN 3.2 g/dL (3.4-5.0); BILIRUBIN - TOTAL 0.41 mg/dL (0.2-1.3); PROTEIN - SERUM 6.4 g/dL (6.4-8.2)
--- NOTE | 2020-05-08 19:33 | NUR ---
REPORT CALLED TO OBEY WEAVER THEN ADMITTED TO ROOM #1206, CONDITION STABLE
--- NOTE | 2020-05-08 19:50 | NUR ---
REC'D PATIENT FROM THE ER. TRANS PATIENT USING SLIDE BOARD AND ASSISTED PATIENT REPOSITIONING IN BED. PATIENT STATED THAT SHE HAD NOT VOIDED ALL DAY AND WAS UNABLE TO VOID. PLACED VELA CATH. 950CC URINE RETURN. EXPLAINED TO THE PATIENT THAT SHE CAN NOT EAT/DRINK AFTER MIDNIGHT. PLACED SCDS ON PATIENT AND EXPLAINED USE. GAVE PATIENT IS AND EDUCATED ON USE, PATIENT RETURNED DEMONSTRATION. PATIENT IS RESTING IN BED WITH SON AT BEDSIDE. PATIENT DENIES OTHER NEEDS AT THIS TIME. BED IN LOWEST POSITION, CALL LIGHT WITHIN REACH, AND BED ALARM ON. ENCOURAGED THE PATIENT TO CALL IF SHE HAS NEEDS. WILL CONTINUE TO MONITOR.
[2020-05-08] MEDS ORDERED: PLAVIX75 MG PO (20:14)
[2020-05-08] MEDS ORDERED: LASIX40 MG PO (20:16)
[2020-05-08 23:10] VITALS: BP 122/70; BMI 26.7
[2020-05-09] VITALS (13 sets, daily range): BP systolic 106–126; BP diastolic 51–71; Ht 170.2 cm; Wt 77.1 kg
[2020-05-09 06:42] LABS: INR 1.07 (0.85-1.17); PROTIME 13.8 SECONDS (11.6-15.0)
[2020-05-09 06:43] LABS: BASOPHILS 0.5 % (0-2); EOSINOPHILS 0.5 % (0-7); HEMATOCRIT 31.1 % (36.0-48.0); IMMATURE GRANULOCYTES 1.6 % (0-5); LYMPHOCYTES 23.9 % (15-50); MCH 29.6 pg (26.0-34.0); MCHC 32.2 g/dL (31.0-37.0); MEAN PLATELET VOLUME 9.1 fL (7.4-10.4); MONOCYTES 6.2 % (2-11); NEUTROPHILS 67.3 % (40-80); PLATELET COUNT 202 10x3/uL (130-400); RBC 3.38 10x6/uL (4.00-5.40); RDW 14.3 % (11.5-14.5); WBC 5.6 10x3/uL (4.8-10.8)
[2020-05-09 06:44] LABS: CALCIUM 8.1 mg/dL (8.5-10.1); CREATININE - SERUM 1.2 mg/dL (0.6-1.3)
[2020-05-09 06:46] LABS: ANION GAP 8.1 mmol/L (8-16); CARBON DIOXIDE 30.1 mmol/L (21.0-32.0); POTASSIUM - SERUM 3.2 mmol/L (3.5-5.1)
--- NOTE | 2020-05-09 07:30 | NUR ---
RECEIVED IN PATIENT ROOM. RESTING IN BED WITH EYES OPEN. LAYING ON LEFT SIDE. COMPLAINS OF PAIN IN RIGHT HIP. PATIENT INFORMED OF WHEN SHE CAN HAVE HER PAIN MEDICATIONS AGAIN. DENIES HAVING ANY OTHER NEEDS AT THIS TIME. WILL CONTINUE TO MONITOR.
--- NOTE | 2020-05-09 09:25 | NUR ---
UA COLLECTED AND SENT TO LAB
[2020-05-09 11:26] LABS: BILIRUBIN NEGATIVE (NEGATIVE); GLUCOSE NEGATIVE (NEGATIVE); KETONE NEGATIVE (NEGATIVE); NITRITE NEGATIVE (NEGATIVE); UROBILINOGEN NORMAL (NORMAL)
[2020-05-09 11:27] LABS: BACTERIA FEW /hpf (NEGATIVE); EPITHELIAL CELLS 0-5 /hpf (0-5); RED CELLS - URINE 0-5 /hpf (0-5); WHITE CELLS - URINE RARE /hpf (NEGATIVE)
--- NOTE | 2020-05-09 13:00 | NUR ---
PATIENT LEFT FOR SURGERY.
--- NOTE | 2020-05-09 16:15 | NUR ---
PATIENT RETURNED FROM SURGERY. VITAL SIGNS STABLE. NO SIGNS OF DISTRESS. NO COMPLAINTS OF PAIN OR DISCOMFORT. REPOSITIONED. DRESSING TO RIGHT HIP CDI. WILL CONTINUE TO MONITOR.
[2020-05-09 18:13] LABS: PLT FUNCT.(P2Y12) PLAVIX 252 PRU (194-418)
--- NOTE | 2020-05-09 19:50 | NUR ---
FERN GRIFFITHS APRN IN REGARDS TO PATIENT'S HR
--- NOTE | 2020-05-09 20:11 | NUR ---
FERN PICHARDO APN IN REGARDS TO PATIENT'S PULSE
--- NOTE | 2020-05-09 20:31 | NUR ---
REC'D CALL BACK FROM YANI PICHARDO. NOTIFIED OF PATIENT'S ELEVATED PULSE RATE. REC'D ORDERS FOR DIG AND CARDIZEM.
[2020-05-10] VITALS: BP 122/71
--- NOTE | 2020-05-10 00:10 | NUR ---
FERN PICHARDO APN IN REGARDS TO PATIENT'S HEART RATE
--- NOTE | 2020-05-10 00:28 | NUR ---
REC'D ROOM ASSIGNMENT 2116 FROM JAVI WHITESIDEDENTAL ASSISTING INSTRUCTOR
--- NOTE | 2020-05-10 00:36 | NUR ---
GAVE REPORT TO HENNY KILPATRICK
--- NOTE | 2020-05-10 00:58 | NUR ---
ARIVED VIA BED TO 2115 FROM [facility] PT REQUIRES A CARDIZEM GTT ALERT AND OX4 BED IS PUT LOW AND LOCKED AND CALL LIGHT PROVIDED
--- NOTE | 2020-05-10 01:04 | NUR ---
CARDIZEM DRIP BEGAN AT 10ML/HR
[2020-05-10 04:00] VITALS: BP 105/65
[2020-05-10 06:16] LABS: BASOPHILS 0.6 % (0-2); EOSINOPHILS 0.1 % (0-7); HEMATOCRIT 29.3 % (36.0-48.0); HEMOGLOBIN 9.4 g/dL (12-16); IMMATURE GRANULOCYTES 1.2 % (0-5); LYMPHOCYTES 28.1 % (15-50); MCH 29.4 pg (26.0-34.0); MCHC 32.1 g/dL (31.0-37.0); MCV 91.6 fL (80.0-100.0); MEAN PLATELET VOLUME 9.4 fL (7.4-10.4); MONOCYTES 7.2 % (2-11); NEUTROPHILS 62.8 % (40-80); PLATELET COUNT 209 10x3/uL (130-400); RDW 14.2 % (11.5-14.5)
--- NOTE | 2020-05-10 06:30 | OP ---
PATIENT NAME: EDWIGE PALACIOS MEDICAL RECORD: [id number] :[birth year] LOCATION:D.M2 D.2116 ADMISSION DATE:05/08/20 SURGEON: JAMES PEREZ DO DATE OF OPERATION: 05/09/2020 PROCEDURE PERFORMED: Right hip hemiarthroplasty PREOPERATIVE DIAGNOSIS: Right femoral neck fracture. POSTOPERATIVE DIAGNOSIS: Right femoral neck fracture. INDICATIONS: Ms. Palacios is an 80-year-old female who fell yesterday onto her right hip and sustained a hip fracture, was brought to the ER and seen to have a hip fracture. She was admitted to primary medicine and got cardiac clearance for her surgery today. She did have a stent back in March on her heart and she was on Plavix that she stopped yesterday and due to the acuity of the fracture and the fact that most do better the sooner we get them fixed, we decided to do the surgery today. She was informed of the risks including infection, bleeding, damage to nerves and vessels, need for further surgery, fracture, failure of implants, leg length discrepancy, continued pain and blood clots, and even and she signed the consent. SURGEON: James Perez DO DESCRIPTION OF PROCEDURE: The patient was taken to the operative suite, laid in supine position, given general anesthetic and intubated. She was given 2 grams Ancef preoperatively. She was then moved over to the Perry table and positioned. The right hip was then prepped and draped in sterile fashion. A timeout was performed. Everyone was in agreeance with correct side, site, patient, and procedure. We then began by careful dissection down to the tensor fascia ernesto muscle. The fascia was taken anteriorly, the muscle belly posteriorly and opened up the rectus interval. Rectus was then taken medially, tensor fascia ernesto laterally and then I encountered the ascending branch of lateral femoral circumflex, this was tied off and coagulated and then cut. I then exposed the femoral neck and opened the capsule and did a neck cut as it was a subcapital fracture. I removed the neck and then the head, then cleaned up any debris that was left. We then exposed the femur using a canal finder and cookie cutter and then broached. We broached up to a 12, reduced to 12, and seemed a little long and then with a -6 neck, I then used to try to broach further down the femur and this worked well and then put the actual implant 12 in and then a -6 neck. Reduced the hip and then got x-rays, no fracture was seen in the femur. They were almost equal lengths to the left, maybe a millimeter longer. We then irrigated out the side with a 10% povidone-iodine and 500 mL of normal saline solution and then irrigated out with over a liter of normal saline. I then put in the David powder and vancomycin powder and then closed the tensor fascia ernesto fascia with #1 Vicryl in [id number] and running locking stitch. The skin was then closed by Agus Garay, surgical assistant director of nursing student and Alejandro Patton, certified surgical assistant director of nursing. We closed the skin with 2-0 Vicryl in an interrupted fashion, 4-0 Monocryl in the skin and Prineo glue placed on the skin. It was then dressed with Telfa and Tegaderm. She was then awakened and taken to recovery in stable condition. Blood loss 200 mL. COMPLICATIONS: None. TRANSINT:[id number] Voice Confirmation ID: [id number] DOCUMENT ID: [id number] OPERATIVE REPORT [id number] EDWIGE PALACIOS MICHAEL D, DO at 0630 CC: [id number] DICTATION DATE: 05/09/20 1511 ALL SOURCE ANALYST: 05/10/20 0037 [facility] [address] [place] [address]
[2020-05-10 06:41] LABS: WBC 8.2 10x3/uL (4.8-10.8)
[2020-05-10 06:54] LABS: ANION GAP 9.5 mmol/L (8-16); APTT 30.9 SECONDS (22.8-39.4); CALCIUM 7.9 mg/dL (8.5-10.1); CARBON DIOXIDE 25.9 mmol/L (21.0-32.0); MAGNESIUM - SERUM 1.6 mg/dL (1.8-2.4); PHOSPHOROUS 2.8 mg/dL (2.5-4.9); POTASSIUM - SERUM 3.4 mmol/L (3.5-5.1)
[2020-05-10 06:55] LABS: INR 1.21 (0.85-1.17); PROTIME 15.2 SECONDS (11.6-15.0)
[2020-05-10 09:00] VITALS: BP 108/58
--- NOTE | 2020-05-10 10:43 | NUR ---
AMBULATES WITH PT ASSIST. UP TO CHAIR WITH CALL LIGHT IN REACH. TEL UCAF. HR 105.
[2020-05-10 13:03] VITALS: BP 100/44
[2020-05-10 16:33] VITALS: BP 97/52
[2020-05-10 20:00] VITALS: BP 103/50
[2020-05-11 04:00] VITALS: BP 93/48
--- NOTE | 2020-05-11 05:31 | NUR ---
PATIENT CARDIZEM DRIP TURN OFF. PATIENT HEART RATE LOW 60s to HIGH 70s. BP 93/46. NO S/S OF DISTRESS. NO C/O PAIN. CALL LIGHT WITHIN REACH
[2020-05-11 06:22] LABS: BASOPHILS 0.2 % (0-2); EOSINOPHILS 0.5 % (0-7); HEMOGLOBIN 8.4 g/dL (12-16); IMMATURE GRANULOCYTES 1.5 % (0-5); LYMPHOCYTES 28.5 % (15-50); MCH 29.1 pg (26.0-34.0); MCHC 32.3 g/dL (31.0-37.0); MEAN PLATELET VOLUME 9.6 fL (7.4-10.4); MONOCYTES 8.6 % (2-11); NEUTROPHILS 60.7 % (40-80); PLATELET COUNT 208 10x3/uL (130-400); RBC 2.89 10x6/uL (4.00-5.40); RDW 13.9 % (11.5-14.5); WBC 8.7 10x3/uL (4.8-10.8)
[2020-05-11 07:02] LABS: ANION GAP 10.3 mmol/L (8-16); CALCIUM 7.9 mg/dL (8.5-10.1); CARBON DIOXIDE 24.3 mmol/L (21.0-32.0); CREATININE - SERUM 1.2 mg/dL (0.6-1.3); MAGNESIUM - SERUM 1.7 mg/dL (1.8-2.4); PHOSPHOROUS 2.9 mg/dL (2.5-4.9); POTASSIUM - SERUM 3.6 mmol/L (3.5-5.1)
[2020-05-11 10:05] VITALS: BP 101/52
--- NOTE | 2020-05-11 11:11 | NUR ---
UP TO CHAIR WITH PT ASSIST. WILL MONITOR NEEDS.
--- NOTE | 2020-05-11 12:45 | NUR ---
Nutrition Follow-up: POD 2 R kristin hip arhtroplasty. Pt continues to report decreased appetite/PO intake. Denies N/V. Unsure of last BM. Likes vanilla Ensure. Diet: Regular Wt: 170# (05/09) Labs noted: Na 127, Glu 132, Ca 7.9, Mg 1.7 Meds noted: Lasix, Protonix, Colace, NS @ 50, vitamin D, electrolyte protocol -Encourage PO intake and honor food preferences. -+vanilla Ensure with meals. -Need new wt; noted daily wts ordered. -RD following.
[2020-05-11 14:08] VITALS: BP 101/52
[2020-05-11 18:23] VITALS: BP 107/50
--- NOTE | 2020-05-11 19:00 | NUR ---
BEDSIDE REPORT RECIEVED. PATIENT IS ALERT AND ORIENTATED. PATIENT IS RESTING COMFORTABLY AND CALL LIGHT IS WITHIN REACH.
[2020-05-11 20:00] VITALS: BP 101/42
[2020-05-12] VITALS: BP 92/44
[2020-05-12 04:00] VITALS: BP 110/42
--- NOTE | 2020-05-12 05:02 | NUR ---
PATIENT SLEEPING THROUGH OUT THE NIGHT. NO COMPLAINTS THROUGH OUT NIGHT.
[2020-05-12 05:17] LABS: BASOPHILS 0.2 % (0-2); EOSINOPHILS 0.4 % (0-7); HEMATOCRIT 24.4 % (36.0-48.0); HEMOGLOBIN 7.9 g/dL (12-16); LYMPHOCYTES 29.8 % (15-50); MCH 28.9 pg (26.0-34.0); MCHC 32.4 g/dL (31.0-37.0); MCV 89.4 fL (80.0-100.0); MEAN PLATELET VOLUME 9.1 fL (7.4-10.4); MONOCYTES 8.7 % (2-11); NEUTROPHILS 58.9 % (40-80); PLATELET COUNT 209 10x3/uL (130-400); RBC 2.73 10x6/uL (4.00-5.40); RDW 13.8 % (11.5-14.5); WBC 8.3 10x3/uL (4.8-10.8)
[2020-05-12 05:55] LABS: ANION GAP 8.5 mmol/L (8-16); CALCIUM 7.7 mg/dL (8.5-10.1); CARBON DIOXIDE 25.1 mmol/L (21.0-32.0); CREATININE - SERUM 1.2 mg/dL (0.6-1.3); MAGNESIUM - SERUM 1.7 mg/dL (1.8-2.4); PHOSPHOROUS 2.7 mg/dL (2.5-4.9); POTASSIUM - SERUM 3.6 mmol/L (3.5-5.1)
--- NOTE | 2020-05-12 06:17 | NUR ---
IV IN LEFT FOREARM CAME OUT. NEW 22 GAUGE PERIPHERIAL IV WAS PUT IN RIGHT FOREARM.
--- NOTE | 2020-05-12 07:00 | NUR ---
BEDSIDE REPORT RECEIVED. SHIFT ASSESSMENT COMPLETED PER FLOWSHEET, SEE FLOWSHEET FOR INFORMATION. NO ACUTE NEEDS OR DISTRESS NOTED AT THIS TIME. WILL CONT TO MONITOR.
[2020-05-12 08:00] VITALS: BP 109/62
--- NOTE | 2020-05-12 10:38 | MORECARE ---
CASE MANAGEMENT DISCHARGE SUMMARY PATIENT: EDWIGE PALACIOS UNIT: [id number] ADM DATE: 05/08/20 AGE: 80 : 39 SEX: F ROOM/BED: D.[facility] AUTHOR: FAUSTINA STEINER PHYSICIAN: REFERRING PHYSICIAN: ULISSES LEE MD DATE OF SERVICE: 05/12/20 Discharge Plan Patient Name: EDWIGE PALACIOS Facility: [facility]:[place] : 1940 Planned Disposition: Inpatient Rehab Anticipated Discharge Date: Discharge Date: Expected LOS: Initial Reviewer: [email or web address] Initial Review Date: 05/12/2020 Generated: 05/12/20 11:38 am Patient Name: EDWIGE PALACIOS Page 86910 at 1038 All edits/amendments must be made on the electronic document DICTATION DATE: 05/12/20 1038 BANKING AND FINANCE INSTRUCTOR: HUBER 05/12/20 1038 RPT#: [id number] DC DATE: STATUS: ADM IN [facility] [address] [place] [address] END OF REPORT
--- NOTE | 2020-05-12 11:31 | MORECARE ---
CASE MANAGEMENT DISCHARGE SUMMARY PATIENT: EDWIGE PALACIOS UNIT: [id number] ADM DATE: 05/08/20 AGE: 80 : 39 SEX: F ROOM/BED: D.[facility] AUTHOR: FAUSTINA STEINER PHYSICIAN: REFERRING PHYSICIAN: ULISSES LEE MD DATE OF SERVICE: 05/12/20 Discharge Plan Patient Name: EDWIGE PALACIOS [facility] [facility] 1940 Planned Disposition: Inpatient Rehab Anticipated Discharge Date: Discharge Date: Expected LOS: Initial Reviewer: [email or web address] Initial Review Date: 05/12/2020 Generated: 05/12/20 12:31 pm DCPIA - Discharge Planning Initial Assessment Updated by [email or web address]: Kat Peters on 05/12/20 11:29 am * Is the patient Alert and Oriented? Yes * PCP Dr. Lang * Pharmacy [facility] * Preadmission Environment Home Alone * ADLs Independent * Equipment Cane Nebulizer Walker * List name and contact numbers for known caregivers / representatives who currently or will assist patient after discharge: Den Finch [facility] - [phone] * Verbal permission to speak to the caregivers and representatives has been obtained from the patient. Yes * Community resources currently utilized Home Health * Additional services required to return to the preadmission environment? Yes * Can the patient safely return to the preadmission environment? No * Has this patient been hospitalized within the prior 30 days at any hospital? Yes Last DP export: 05/12/20 9:38 a Patient Name: EDWIGE PALACIOS Page [id number] at 1131 All edits/amendments must be made on the electronic document DICTATION DATE: 05/12/20 1131 CODE ENFORCEMENT OFFICER: HUBER 05/12/20 1131 RPT#: [id number] DC DATE: STATUS: ADM IN [facility] [address] [place] [address] END OF REPORT
--- NOTE | 2020-05-12 11:39 | MORECARE ---
CASE MANAGEMENT DISCHARGE SUMMARY PATIENT: EDWIGE PALACIOS UNIT: [id number] ADM DATE: 05/08/20 AGE: 80 : 39 SEX: F ROOM/BED: D.3285 AUTHOR: JATIN,DOC PHYSICIAN: REFERRING PHYSICIAN: ULISSES LEE MD DATE OF SERVICE: 05/12/20 Discharge Plan Patient Name: EDWIGE PALACIOS Facility: [facility]:[place] : 1940 Planned Disposition: Inpatient Rehab Anticipated Discharge Date: Discharge Date: Expected LOS: Initial Reviewer: [email or web address] Initial Review Date: 05/12/2020 Generated: 05/12/20 12:39 pm Comments DCP- Discharge Planning Updated by [email or web address]: Kat Peters on 05/12/20 10:[address] Patient Name: EDWIGE PALACIOS Admission Status: ER Accout number: [id number] Admission Date: 05-08-2020 : 1940 Admission Diagnosis:FRACTURE OF UNSP PART OF NECK OF RIGHT FEMUR, INIT Attending: JUMANA Current LOS: 4 Anticipated DC Date: Planned Disposition: Inpatient Rehab Primary Insurance: MEDICARE A & B Discharge Planning Comments: CM met with patient to complete initial dc planning assessment. CM educated patient on the CM role and verbal consent given by patient to complete assessment. Patient lives at home alone. CM discussed availability of home health, rehab services, and medical equipment. At discharge, patient would like to go to inpatient rehab at [facility] [place], [facility] signed and a rehab screen ordered. CM will continue to follow and will assist as needed with dc plans/needs. Chicken Hatchery Helper: Kat Peters DCPIA - Discharge Planning Initial Assessment Updated by [email or web address]: Kat Peters on 05/12/20 11:29 am * Is the patient Alert and Oriented? Yes * PCP Dr. Lang * Pharmacy [facility] * Preadmission Environment Home Alone * ADLs Independent * Equipment Cane Nebulizer Walker * List name and contact numbers for known caregivers / representatives who currently or will assist patient after discharge: Den Finch - [facility] - [phone] * Verbal permission to speak to the caregivers and representatives has been obtained from the patient. Yes * Community resources currently utilized Home Health * Additional services required to return to the preadmission environment? Yes * Can the patient safely return to the preadmission environment? No * Has this patient been hospitalized within the prior 30 days at any hospital? Yes Coverage Notice Reviewer: [id number] Peters Notice Issued Date-Time: 05/12/2020 10:30 Notice Type: IM Discharge Notice Notice Delivered To: Patient Relationship to Patient: Self Maritime Engineer Name: Delivery Method: HAND - Hand Delivered Lisa Days: Prior Verbal Notification: Recipient Understood Notice: Yes Recipient Signature: Yes Med Rec Note Co-signed by Attending: Coverage Notice Comment: IMM explained, signed, given, copy placed in MR Reviewer: [id number] Doe Peters Notice Issued Date-Time: 05/12/2020 11:33 Notice Type: Patient Choice Letter Notice Delivered To: Patient Relationship to Patient: Self Maritime Engineer Name: Delivery Method: HAND - Hand Delivered Lisa Days: Prior Verbal Notification: Recipient Understood Notice: Yes Recipient Signature: Yes Med Rec Note Co-signed by Attending: Coverage Notice Comment: ALEXANDR for [facility] [place] inpatient rehab Last DP export: 05/12/20 10:31 a Patient Name: EDWIGE PALACIOS Page [phone] at 1139 All edits/amendments must be made on the electronic document DICTATION DATE: 05/12/201138 OUTREACH EDUCATOR: HUBER 05/12/20 1139 RPT#: [id number] DC DATE: STATUS: ADM IN [facility] [address] [place] [address] END OF REPORT
[2020-05-12 12:00] VITALS: BP 90/55
--- NOTE | 2020-05-12 14:29 | NUR ---
Rehab Note- Acute Inpatient Rehab prescreen order received. The patient is a good inpatient acute rehab candidate. Will accept the patient when ready for discharge from the acute hospital. Thank you for this referral! Liz Nick RN Clinical Liaison, [facility] Rehab
[2020-05-12] MEDS ORDERED: ELIQUIS2.5 MG PO (15:47)
[2020-05-12] MEDS ORDERED: BETAPACE 80 MG80 MG PO (15:48)
[2020-05-12] MEDS ORDERED: COLACE100 MG PO (15:48)
[2020-05-12] MEDS ORDERED: PROTONIX40 MG PO (15:48)
[2020-05-12] MEDS ORDERED: HYDROCODON-ACE1 EA10 PO (15:49)
[2020-05-12] MEDS ORDERED: HYDROCODON-ACE1 EAC7 PO (15:49)
--- NOTE | 2020-05-12 16:08 | NUR ---
PAGE INTO DR HOLLOWAY PER DISCHARGE ORDERS OF PLAVIX. AWAITING CALL BACK.
--- NOTE | 2020-05-12 16:19 | NUR ---
3492-DR HOLLOWAY TO CALL BACK WITH ORDERS TO D/C PLAVIX AND CONTINUE ELIQUIS
--- NOTE | 2020-05-12 16:51 | NUR ---
Aware of patient being in the hospital for Hip, will follow patient's and when she is released from Hip will revisit cardiac rehab outpatient.
--- NOTE | 2020-05-12 17:55 | NUR ---
REPORT CALLED TO LUIS IN ROOM 1118-A. VSS. WILL CONT TO MONITOR. PT TRANSFERED TO REHAB VIA WHEELCHAIR ACCOMPANIED BY STAFF.
--- NOTE | 2020-05-13 09:36 | MORECARE ---
CASE MANAGEMENT DISCHARGE SUMMARY PATIENT: EDWIGE PALACIOS UNIT: [id number] ADM DATE: 05/08/20 AGE: 80 : 39 SEX: F ROOM/BED: D.4980 AUTHOR: JATIN,DOC PHYSICIAN: REFERRING PHYSICIAN: ULISSES LEE MD DATE OF SERVICE: 05/13/20 Discharge Plan Patient Name: EDWIGE PALACIOS Facility: [facility]:[place] : 1940 Planned Disposition: Inpatient Rehab Anticipated Discharge Date: Discharge Date: 05/12/2020 Expected LOS: Initial Reviewer: [email or web address] Initial Review Date: 05/12/2020 Generated: 05/13/20 10:35 am Comments DCP- Discharge Planning Updated by [email or web address]: Kat Peters on 05/12/20 10:[address] Patient Name: EDWIGE PALACIOS Admission Status: ER Accout number: [id number] Admission Date: 05-08-2020 : 1940 Admission Diagnosis:FRACTURE OF UNSP PART OF NECK OF RIGHT FEMUR, INIT Attending: JUMANA Current LOS: 4 Anticipated DC Date: Planned Disposition: Inpatient Rehab Primary Insurance: MEDICARE A & B Discharge Planning Comments: CM met with patient to complete initial dc planning assessment. CM educated patient on the CM role and verbal consent given by patient to complete assessment. Patient lives at home alone. CM discussed availability of home health, rehab services, and medical equipment. At discharge, patient would like to go to inpatient rehab at [facility], [facility] signed and a rehab screen ordered. CM will continue to follow and will assist as needed with dc plans/needs. Facility Service Manager: Kat Peters DCPIA - Discharge Planning Initial Assessment Updated by [email or web address]: Kat Peters on 05/12/20 11:29 am * Is the patient Alert and Oriented? Yes * PCP Dr. Lang * Pharmacy [facility] * Preadmission Environment Home Alone * ADLs Independent * Equipment Cane Nebulizer Walker * List name and contact numbers for known caregivers / representatives who currently or will assist patient after discharge: Den Finch - [facility] - [phone] * Verbal permission to speak to the caregivers and representatives has been obtained from the patient. Yes * Community resources currently utilized Home Health * Additional services required to return to the preadmission environment? Yes * Can the patient safely return to the preadmission environment? No * Has this patient been hospitalized within the prior 30 days at any hospital? Yes Coverage Notice Reviewer: [email or web address] Peters Notice Issued Date-Time: 05/12/2020 10:30 Notice Type: IM Discharge Notice Notice Delivered To: Patient Relationship to Patient: Self Tariff Expert Name: Delivery Method: HAND - Hand Delivered Lisa Days: Prior Verbal Notification: Recipient Understood Notice: Yes Recipient Signature: Yes Med Rec Note Co-signed by Attending: Coverage Notice Comment: IMM explained, signed, given, copy placed in MR Reviewer: [id number] Doe Peters Notice Issued Date-Time: 05/12/2020 11:33 Notice Type: Patient Choice Letter Notice Delivered To: Patient Relationship to Patient: Self Tariff Expert Name: Delivery Method: HAND - Hand Delivered Lisa Days: Prior Verbal Notification: Recipient Understood Notice: Yes Recipient Signature: Yes Med Rec Note Co-signed by Attending: Coverage Notice Comment: ALEXANDR for [facility] inpatient rehab Last DP export: 05/12/20 10:39 a Patient Name: EDWIGE PALACIOS Page [phone] at 0936 All edits/amendments must be made on the electronic document DICTATION DATE: 05/13/20934 FRENCH FOLDER: HUBER 05/13/20934 RPT#: [id number] DC DATE:05/12/20 STATUS: DIS IN [facility] [address] [place] [address] END OF REPORT
== END 2020-05-12 19:40 | DRG 470 ==
LOC: D.ER 17:08 → D.M3 18:45 → D.M2 18:45 → D.SDCHOLD 05-09 13:24 → D.M3 05-09 13:26 → D.M2 05-10 00:50 → D.SDCHOLD 05-11 11:53 → D.M2 05-11 11:55
PROVIDERS: Family Medicine; Internal Medicine Cardiovascular Disease; Orthopaedic Surgery; ADMIT Family Medicine; ATTEND Family Medicine
PROC: 0SRR0JZ Replacement of Right Hip Joint, Femoral Surface with Synthetic Substitute, Open Approach (ICD-10-PCS; principal; 2020-05-09 18:45)
DX: S72.001A Fracture of unspecified part of neck of right femur, initial encounter for closed fracture (principal); E87.1 Hypo-osmolality and hyponatremia; W19.XXXA Unspecified fall, initial encounter; I10 Essential (primary) hypertension; I48.91 Unspecified atrial fibrillation; I25.10 Atherosclerotic heart disease of native coronary artery without angina pectoris; I25.5 Ischemic cardiomyopathy; I48.0 Paroxysmal atrial fibrillation; D64.9 Anemia, unspecified; E87.6 Hypokalemia; E03.9 Hypothyroidism, unspecified

== ENCOUNTER 2020-05-12 18:30 | Inpatient (IN) | payer MEDICARE, OTHER ==
[~2020-05-12] VITALS: Ht 170.2 cm; Wt 77.1 kg
[~2020-05-12 18:30] MED LIST changes: +BETAPACE 80 MG80 MG PO; +COLACE100 MG PO; +HYDROCODON-ACE1 EA10 PO; +HYDROCODON-ACE1 EAC7 PO; +LASIX40 MG PO; +PROTONIX40 MG PO
--- NOTE | 2020-05-12 20:30 | NUR ---
PT NEW ADMIT, A&O, VELA DARK SEAN URINE, RT HIP FX, DRSG INTACT, PAPERWORK COMPLETE, NO NEEDS NOTED AT THIS TIME, FLUIDS/CALL LIGHT WITHIN REACH
[2020-05-12 21:02] VITALS: BP 90/44; BMI 26.7
[2020-05-12 22:05] VITALS: BP 90/44
[2020-05-13 06:23] LABS: BASOPHILS 0.4 % (0-2); EOSINOPHILS 0.4 % (0-7); HEMATOCRIT 23.7 % (36.0-48.0); HEMOGLOBIN 7.7 g/dL (12-16); IMMATURE GRANULOCYTES 3.7 % (0-5); LYMPHOCYTES 30.1 % (15-50); MCH 29.1 pg (26.0-34.0); MCHC 32.5 g/dL (31.0-37.0); MCV 89.4 fL (80.0-100.0); MEAN PLATELET VOLUME 9.2 fL (7.4-10.4); MONOCYTES 8.6 % (2-11); NEUTROPHILS 56.8 % (40-80); PLATELET COUNT 221 10x3/uL (130-400); RBC 2.65 10x6/uL (4.00-5.40); WBC 8.4 10x3/uL (4.8-10.8)
[2020-05-13 06:23] LABS: BILIRUBIN NEGATIVE (NEGATIVE); KETONE NEGATIVE (NEGATIVE); NITRITE NEGATIVE (NEGATIVE); UROBILINOGEN NORMAL (NORMAL)
[2020-05-13 06:26] LABS: ANION GAP 9.7 mmol/L (8-16); CALCIUM 7.9 mg/dL (8.5-10.1); CARBON DIOXIDE 23.9 mmol/L (21.0-32.0); CREATININE - SERUM 1.4 mg/dL (0.6-1.3); POTASSIUM - SERUM 3.6 mmol/L (3.5-5.1)
[2020-05-13 06:28] LABS: BACTERIA FEW /hpf (NEGATIVE); WHITE CELLS - URINE 0-5 /hpf (NEGATIVE)
[2020-05-13 06:29] LABS: HYALINE CAST 0-5 /lpf (NONE SEEN)
[2020-05-13 06:37] LABS: GLUCOSE NEGATIVE (NEGATIVE)
[2020-05-13 08:00] VITALS: BP 98/47
[2020-05-13 12:33] VITALS: Ht 170.2 cm; Wt 77.1 kg
--- NOTE | 2020-05-13 15:30 | NUR ---
LAYING DOWN IN BED. HAS VISITOR IN ROOM. IS STILL RECIEVING RECIEVING BLOOD. SHE C/O BEING TIRED. F/C DRAINING CLOUDY URINE. HAS BEEN BLADDER TRAINING TODAY.
[2020-05-13 20:16] VITALS: BP 108/56
--- NOTE | 2020-05-13 22:56 | NUR ---
PT A&O UP TO TOILET BM,NO OTHER NEEDS NOTED PRBC COMPLETED EARLIER, VS WNL BP-108/56 P-69, NO ADVERSE EFFECTS NOTED, FLUIDS/CALL LIGHT WITHIN REACH, 7 DAY HIP DRSG INTACT DAY 4,
--- NOTE | 2020-05-14 03:35 | NUR ---
BLADDER TRAINING BEGAN 05/13/20 AT 2000 BAND ON, 2218 BAND OFF, 0025 ON, 0230 BAND OFF,
[2020-05-14 10:09] VITALS: BP 100/52
--- NOTE | 2020-05-14 12:41 | NUR ---
APPETITE POOR. DENIES N/V. SITTING UP IN BED TALKING TO ROOM MATE. F/C PATIENT. STILL BLADDER TRAINING PT TO VERONICA VELA. CALL LIGHT IN REACH
--- NOTE | 2020-05-14 19:20 | NUR ---
PT RECEIVED IN BED. ASSIST TO WHEELCHAIR TO BATHROOM MAINLY WITH ADJUSTING BED. ONCE SAT UP ON SIDE OF BED PT NEEDS MINIMAL ASSIST WITH TRANSFER. NO NEEDS MADE KNOWN. IN WHEELCHAIR AT SIDE OF BED. CALL LIGHT IN REACH.
[2020-05-14 20:00] VITALS: BP 108/52
--- NOTE | 2020-05-14 22:22 | NUR ---
PT REPORTS URINE WHEN GOING TO BATHROOM, DENIES PAIN/DISCOMFORT WITH URINATING. WILL CONTINUE TO OBSERVE.
--- NOTE | 2020-05-15 00:55 | NUR ---
PT UP TO BATHRROM VIA WHEELCHAIR. TOLERATED WELL. DENIES OTHER NEEDS AT THIS TIME. CALL LIGHT IN REACH.
--- NOTE | 2020-05-15 02:55 | NUR ---
PT IN BED WITH EYES CLOSED AND CHEST RISING. NO S/S OF DISTRESS. CALL LIGHT IN REACH. WILL CONTINUE TO OBSERVE.
--- NOTE | 2020-05-15 06:22 | NUR ---
PT WITH EYES OPEN, RECEIVED AM MEDICATIONS PER MAR, TOLERATED WELL. CALL LIGHT IN REACH. WILL CONTINUE TO OBSERVE.
[2020-05-15 08:00] VITALS: BP 121/64
[2020-05-15 08:09] LABS: ANION GAP 11.9 mmol/L (8-16); CALCIUM 7.9 mg/dL (8.5-10.1); CARBON DIOXIDE 26.3 mmol/L (21.0-32.0); CREATININE - SERUM 0.8 mg/dL (0.6-1.3); POTASSIUM - SERUM 3.2 mmol/L (3.5-5.1)
[2020-05-15 08:25] LABS: HEMOGLOBIN 10.5 g/dL (12-16); LYMPHOCYTES 26.9 % (15-50); MCH 30.2 pg (26.0-34.0); MCHC 33.9 g/dL (31.0-37.0); MCV 89.1 fL (80.0-100.0); MEAN PLATELET VOLUME 8.9 fL (7.4-10.4); NEUTROPHILS 63.2 % (40-80); PLATELET COUNT 236 10x3/uL (130-400); RBC 3.48 10x6/uL (4.00-5.40); RDW 14.2 % (11.5-14.5); WBC 7.3 10x3/uL (4.8-10.8)
--- NOTE | 2020-05-15 12:07 | NUR ---
PATIENT ADMITTED TO REHAB FROM ACUTE FLOOR. DR. SOUSA IS PATIENT PCP AND AT DISCHARGE PATIENT WILL NEED FOLLOW UP WITH DR. PEREZ.DME AT HOME: NEBULIZER, CANE AND A WALKER. WILL CONTINUE TO FOLLOW WITH PATIENT.
--- NOTE | 2020-05-15 12:45 | NUR ---
SITTING UP FOR LUNCH. DENIES NEEDS. IS VOIDING WITH OUT PROBLEMS. HIP INCISION INTACT. CALL LIGHT IN REACH
--- NOTE | 2020-05-15 13:01 | NUR ---
Nutrition Follow-up: Diet: Regular PO intake: ~28% average x last 4 recorded meals; She reports that her appetite is improving. She was eating well during lunch time. Last BM: 05/14/20. WT: 170# (05/13/20) Meds noted: lasix. Labs noted: Na 135 (L), K 3.2(L) Recommend continue current diet. Encourage PO intake. Offer oral nutrition supplements. RD following.
--- NOTE | 2020-05-15 19:55 | NUR ---
AWAKE AND ALERT. RESTING IN WHEELCHAIR IN TALKING TO VISITORS. RESPIRATIONS UNLABORED. NO ACUTE DISTRESS NOTED. CALL LIGHT IN REACH.
[2020-05-15 21:53] VITALS: BP 96/52
--- NOTE | 2020-05-16 02:32 | NUR ---
SLEEPING WITH NO DISTRESS NOTED.
--- NOTE | 2020-05-16 05:08 | NUR ---
QUIET HOURS. NO ACUTE CHANGES IN CONDITION THIS SHIFT. RIGHT FOREARM SALINE LOCK INTACT. NO DISTRESS NOTED.
[2020-05-16 08:00] VITALS: BP 100/49
--- NOTE | 2020-05-16 09:53 | NUR ---
C/O N/V AND REQUESTING MED FOR RELIEF. GIVEN ZOFRAN 4 MG PO.
--- NOTE | 2020-05-16 10:15 | NUR ---
RELIEF OBTAINED FROM ZOFRAN. STATES SHE IS FEELING MUCH BETTER.
--- NOTE | 2020-05-16 13:00 | NUR ---
I have reviewed this patient and I concur with the Shift Assessment completed by the Licensed Practical Nurse today this shift.
--- NOTE | 2020-05-16 19:53 | NUR ---
AWAKE AND ALERT. RESTING IN BED WITH RESPIRATIONS UNLABORED. RIGHT FOREARM SALINE LOCK INTACT. NO DISTRESS NOTED.
[2020-05-16 21:16] VITALS: BP 94/46
--- NOTE | 2020-05-17 02:09 | NUR ---
SLEEPING WITH RESPIRAITONS UNLABORED. NO DISTRESS NOTED. CALL LIGHT IN REACH.
--- NOTE | 2020-05-17 05:18 | NUR ---
QUIET HOURS. NO ACUTE CHANGES IN CONDITION THIS SHIFT. RESTING IN BED WITH NO DISTRESS NOTED. CALL LIGHT IN REACH.
[2020-05-17 08:00] VITALS: BP 111/59
[2020-05-17 08:48] LABS: ANION GAP 8.4 mmol/L (8-16); CALCIUM 8.4 mg/dL (8.5-10.1); CARBON DIOXIDE 28.7 mmol/L (21.0-32.0); POTASSIUM - SERUM 3.1 mmol/L (3.5-5.1)
[2020-05-17 09:55] LABS: BASOPHILS 1.2 % (0-2); EOSINOPHILS 1.2 % (0-7); HEMATOCRIT 34.8 % (36.0-48.0); HEMOGLOBIN 11.3 g/dL (12-16); IMMATURE GRANULOCYTES 4.8 % (0-5); LYMPHOCYTES 34.4 % (15-50); MCH 29.2 pg (26.0-34.0); MCHC 32.5 g/dL (31.0-37.0); MCV 89.9 fL (80.0-100.0); MEAN PLATELET VOLUME 9.3 fL (7.4-10.4); MONOCYTES 7.2 % (2-11); NEUTROPHILS 51.2 % (40-80); RBC 3.87 10x6/uL (4.00-5.40); RDW 14.5 % (11.5-14.5); WBC 6.8 10x3/uL (4.8-10.8)
[2020-05-17 10:00] LABS: PLATELET COUNT 317 10x3/uL (130-400)
--- NOTE | 2020-05-17 14:51 | NUR ---
RESTING QUIETLY IN BED,AWAKE.DENIES NEEDS.ASSESSMENT COMPLETED.DRESSING INTACT TO RT HIP AND LATERAL THIGH,CLEAN AND DRY.WILL CONTINUE WITH CURRENT PLAN OF CARE.CL IN EASY REACH,BED IN LOW POSITION.
--- NOTE | 2020-05-17 16:36 | NUR ---
CARE TEAM MEETING: PATIENT IS PROGRESSING IN THERAPY. HER TENATIVE DISCHARGE DATE IS 05/26/20. WILL CONTINUE TO FOLLOW WITH PATIENT.
--- NOTE | 2020-05-17 19:46 | NUR ---
PT VISITING WITH FAMILY, NO NEEDS NOTED, FLUIDS/CALL LIGHT WITHIN REACH
[2020-05-17 20:59] VITALS: BP 107/53
--- NOTE | 2020-05-18 01:20 | NUR ---
PT ASLEEP, NO NEEDS NOTED, FLUIDS/CALL LIGHT WITHIN REACH
--- NOTE | 2020-05-18 06:26 | NUR ---
PT SITTING UP IN W/C. DENIES ANY NEEDS OR PAIN. NO SIGNS OF ACUTE DISTRESS NOTED. CALL LIGHT AND WATER WITHIN REACH. FALL PRECAUTIONS IN PLACE. CPOC
[2020-05-18 08:00] VITALS: BP 112/57
--- NOTE | 2020-05-18 15:35 | NUR ---
SITTING UP IN CHAIR IN ROOM WATCHING TV. DENIES NEEDS OR C/O. CALL LIGHT IN REACH
[2020-05-18 21:38] VITALS: BP 106/52
--- NOTE | 2020-05-18 23:12 | NUR ---
PT WITH FAMILY IN ROOM, A&O, NO NEEDS NOTED, FLUIDS/CALL LIGHT WITHIN REACH
--- NOTE | 2020-05-19 03:59 | NUR ---
PT IN BED ASLEEP, AROUSES EASILY, NO NEEDS NOTE, FLUIDS/CALL LIGHT WITHIN REACH, FALL PRECAUTIONS ARE IN PLACE WHEN WARRANTED
[2020-05-19 08:00] VITALS: BP 94/46
--- NOTE | 2020-05-19 11:45 | NUR ---
WALKING MATTHEW WITH THERAPY
--- NOTE | 2020-05-19 12:25 | RHP ---
PATIENT: EDWIGE PALACIOS MEDICAL RECORD: [id number] ACCOUNT: [id number] LOCATION:[facility]1118 : [birth year] ADMISSION DATE: 05/12/20 REHABILITATION HISTORY AND PHYSICAL EXAMINATION POST ADMISSION PHYSICIAN EXAMINATION ADMITTING DIAGNOSIS: Right femoral neck fracture, status post right hemiarthroscopy. HISTORY OF PRESENT ILLNESS: The patient is an 80-year-old female patient presented after sustaining a fall, tripping on her porch at home with complaints of right hip pain. Hip showed a right femoral neck fracture. She was admitted to the hospital, had orthopedic consult. The patient was recently in the hospital secondary to a non-Q-wave OH, hypoxic respiratory failure and atrial fibrillation with rapid ventricular response. The patient had cardiology consult and clearance done. She underwent a right kristin hip arthroplasty due to a displaced right femoral neck fracture. She was transferred to the cardiac floor for closer monitoring secondary to her AFib. The patient needs to be monitored closely with telemetry for AFib, pain control, monitor her CBC, watch for any signs of sepsis or bleeding, acute blood loss, monitoring her input and output. Anticoagulation therapy is now done with Eliquis as opposed warfarin in the past. She has got impaired mobility, decreased activity tolerance, balance deficits, gait disturbance. She is a medical complex and risk for fall. She has got multiple falls recently. She got low endurance. She fatigues easily, got inability to care for herself. These are all reasons for not discharging her home. She lives at home alone, was independent with ADLs and mobility prior to this. Now, she is set up for max assist for ADLs and mod assist for mobility. She plans to return home at her prior level of functioning or better. COMORBIDITIES: Include weakness, fracture of femoral neck, atrial fibrillation, normocytic anemia, hypokalemia, hypertension, dyslipidemia, hypothyroidism, coronary artery disease, ischemic cardiomyopathy with an ejection fraction of 30% to 35%. PAST MEDICAL HISTORY: Significant for thyroid problems, hypertension, atrial fib, coronary artery disease, dyslipidemia, constipation, arthritis, urinary retention. PAST SURGICAL HISTORY: Includes knee surgery, tubal ligation and hip surgery. ALLERGIES: SULFA AND AMIODARONE. CURRENT MEDICATIONS: Include Procardia 60 mg daily, furosemide 40 mg daily, Cardizem 240 daily, vitamin D 1000 units daily, atorvastatin 10 mg daily, aspirin chewable 81 mg daily, Protonix 40 mg daily, Synthroid 25 mcg daily, sotalol 80 mg b.i.d., Zestril 2.5 mg at bedtime, Colace 100 mg b.i.d., Eliquis 2.5 mg b.i.d., [place] 5/325 one tab every 4 to 6 hours p.r.n. pain. HABITS: No alcohol or tobacco use. FAMILY HISTORY: Noncontributory. SOCIAL HISTORY: The patient hopes to return back home and get back to her prior level of functioning. HISTORY AND PHYSICAL [id number] EDWIGE PALACIOS REVIEW OF SYSTEMS: GENERAL: Does complain of weakness and fatigue. HEENT: Denies cold, cough, or congestion. CARDIOVASCULAR: Denies any chest pain. PHYSICAL EXAMINATION: VITAL SIGNS: Stable, afebrile. GENERAL: An elderly female, in no acute distress upon exam. HEENT: Normocephalic and atraumatic. Mucosa moist. NECK: Supple. No lymphadenopathy. LUNGS: Clear in upper [place]. No wheezing, rhonchi or rales. HEART: Irregular rate and rhythm. ABDOMEN: Soft, benign and nondistended. Positive bowel sounds times 4. EXTREMITIES: No clubbing, cyanosis or edema. Postop area appears normal. NEUROLOGIC: She does have weakness. LABORATORY DATA: Her sodium is 124, potassium 3.6, BUN and creatinine of 27 and 1.4, and blood sugar is noted to be 126, hemoglobin and hematocrit are 7.7 and 23.7 and her white count is 8.4. ASSESSMENT: This is an 80-year-old female patient admitted to rehab with a working diagnosis of status post right hemiarthroscopy secondary to hip fracture. The patient has potential to make improvement. We will institute the following multidisciplinary therapies including, but not limited to physical, occupational, respiratory, speech, nutritional services, prosthetics and orthotics. Given her complex medical condition and risk of further medical complications, rehabilitation services cannot be provided at a low level of care such as assisted facility. PLAN: 1. Admit to [facility] for intensive inpatient therapy to include the following disciplines; A. Physical therapy to improve gait, all transfer skills and bed mobility to a modified independent level. B. Occupational therapy to improve activities of daily living. C. Case management to help with discharge planning and placement options. D. Nutrition to assist with nutritional needs. E. Rehabilitation nursing to assist in monitoring the patient's underlying medical medications and to assist with any type of bowel or bladder management. 2. The patient's current medication and medical care will be continued. 3. The patient will be placed on standard fall precautions. 4. The patient's estimated length of stay is approximately 7-10 days. We will discuss this patient during care team staff meeting this week. I will go ahead and transfuse her with a couple units of blood today secondary to her low H&H and we will see again in the a.m. TRANSINT:[id number] Voice Confirmation ID: [id number] DOCUMENT ID: [id number] KING notes whether there has been none or any medical/functional change since admission: - No change since prescreen. KING attests patient continues to be appropriate for IRF: HISTORY AND PHYSICAL [id number] EDWIGE PALACIOS - Continues to be appropriate. ODESSA GARNETT MD at 1225 CC: [id number] DICTATION DATE: 05/13/20924 LAW TUTOR: 05/13/20 1336 ADM IN [facility] [address] [place] [id number]
--- NOTE | 2020-05-19 16:02 | NUR ---
Nutrition Follow-up: Diet: Regular PO intake: ~82% average x last 7 meals recorded. PO intake has not been recorded recently. Noted in MD notes that patient is not eating much and plans to add Megace to help with appetite. Last BM: 05/17/20. WT: 170# (05/13/20) Meds noted: megace, senokot, lasix Labs noted: Na 131(L), K 3.1(L) Recommend continue current diet. Will add oral nutrition supplements. RD following.
--- NOTE | 2020-05-19 20:01 | NUR ---
RESTING IN BED WITH RESPIRAITONS UNLABORED. NO ACUTE DISTRESS NOTED. DRESSING INTACT TO LEFT HIP. NO DISTRESS NOTED.
[2020-05-19 21:41] VITALS: BP 105/47
--- NOTE | 2020-05-19 22:00 | NUR ---
SLEEPING WITH REPSIRATIONS UNLABORED. NO DISTRESS NOTED.
--- NOTE | 2020-05-20 00:05 | NUR ---
ASSISTED TO BATHROOM, AND BACK TO BED. NO DISTRESS NOTED.
--- NOTE | 2020-05-20 03:31 | NUR ---
SLEEPING WITH NO DISTRESS NOTED.
--- NOTE | 2020-05-20 05:32 | NUR ---
QUIET HOURS. NO ACUTE CHANGES IN CONDITION THIS SHIFT. RESTING IN BED WITH NO DISTRESS NOTED. CALL LIGHT IN REACH.
[2020-05-20 08:00] VITALS: BP 115/56
--- NOTE | 2020-05-20 13:49 | NUR ---
SITTING UP IN WC IN ROOM WATCHING TV. CALL LIGHT IN REACH
--- NOTE | 2020-05-20 16:25 | NUR ---
LAYING DOWN IN BED WATCHING TV WITH VISITOR. DENIES NEEDS OR C/O. CALL LIGHT IN REACH. INCISION OPEN TO AIR.
--- NOTE | 2020-05-20 18:23 | NUR ---
LAYING IN BED WATCHING TV. DENIES NEEDS OR C/O. CALL LIGHT IN REACH. BED IN LOWEST POSITION. SIDE RAILS UP X2.
--- NOTE | 2020-05-20 19:22 | NUR ---
AWAKE AND ALERT. RESTING IN BED TALKING WITH VISITORS. RESPIRATIONS UNLABORED. NO DISTRESS NOTED. CALL LIGHT IN REACH.
[2020-05-20 20:09] VITALS: BP 109/59
--- NOTE | 2020-05-20 22:00 | NUR ---
RESTING IN BED WITH EYES CLOSED AND RESPIRAITONS UNLABORED. NO DISTRESS NOTED.
--- NOTE | 2020-05-21 00:05 | NUR ---
ASSISTED TO BATHROOM AND BACK TO BED. NO ACUTE DISTRESS NOTED.
--- NOTE | 2020-05-21 02:54 | NUR ---
EYES CLOSED RESPIRATIONS UNLABORED AT 18/MINUTE. NO DISTRESS NOTED.
--- NOTE | 2020-05-21 05:55 | NUR ---
QUIET HOURS. NO ACUTE CHANGES IN CONDITION THIS SHIFT. RESTING IN BED WITH NO DISTRESS NOTED.
[2020-05-21 07:15] VITALS: BP 121/63
--- NOTE | 2020-05-21 07:30 | NUR ---
PATIENT AWAKE AND SITTING UP IN BED. ORIENTED. NO COMPLAINTS. DENIES HAVING ANY PAIN OR NEEDS AT THIS TIME. CONTINUE PLAN OF CARE.
--- NOTE | 2020-05-21 19:40 | NUR ---
AWAKE AND ALERT. SITTING IN WHEELCHAIR TALKING ON PHONE. RESPIRAITONS UNLABORED. NO DISTRESS NOTED.
[2020-05-21 19:43] VITALS: BP 101/51
--- NOTE | 2020-05-21 21:30 | NUR ---
RESTING IN BED, WATCHING TV. NO DISTRESS NOTED.
--- NOTE | 2020-05-21 23:29 | NUR ---
SLEEPING WITH NO DISTRESS NOTED.
--- NOTE | 2020-05-22 02:01 | NUR ---
CONTINUES SLEEPING WITH NO DISTRESS NOTED.
--- NOTE | 2020-05-22 03:38 | NUR ---
RESTING WITH RESPIRAITONS UNLABORED. NO DISTRESS NOTED.
[2020-05-22 07:32] LABS: BASOPHILS 0.9 % (0-2); EOSINOPHILS 1.7 % (0-7); HEMATOCRIT 30.9 % (36.0-48.0); IMMATURE GRANULOCYTES 1.5 % (0-5); LYMPHOCYTES 48.3 % (15-50); MCH 29.2 pg (26.0-34.0); MCHC 32.4 g/dL (31.0-37.0); MCV 90.1 fL (80.0-100.0); MEAN PLATELET VOLUME 9.1 fL (7.4-10.4); MONOCYTES 8.2 % (2-11); NEUTROPHILS 39.4 % (40-80); PLATELET COUNT 259 10x3/uL (130-400); RBC 3.43 10x6/uL (4.00-5.40); RDW 14.6 % (11.5-14.5); WBC 7.6 10x3/uL (4.8-10.8)
[2020-05-22 07:47] LABS: ANION GAP 7.6 mmol/L (8-16); CALCIUM 8.3 mg/dL (8.5-10.1); CARBON DIOXIDE 29.3 mmol/L (21.0-32.0); CREATININE - SERUM 0.8 mg/dL (0.6-1.3)
[2020-05-22 07:51] LABS: POTASSIUM - SERUM 2.9 mmol/L (3.5-5.1)
[2020-05-22 08:00] VITALS: BP 114/55
--- NOTE | 2020-05-22 16:45 | NUR ---
SITTING UP IN WC IN ROOM WATCHING TV. USES WC IN ROOM TO GO BACK AND FORTH BETWEEN BED AND TOILET. SHE HAS URGE INCONT AT TIMES. RT ANTERIOR HIP HEALING NICELY WITH NO S/S INFECTION.. SHE DENIES NUMBNESS AND TINGLING TO RLE. CALL LIGHT IN REACH. APPETITE STILL POOR TO FAIR.
--- NOTE | 2020-05-22 19:55 | NUR ---
ASSESSMENT PER FLOW SHEET, VS OBTAINED PER INDOOR LANDSCAPE ARCHITECT, PT DENIES NEEDS, S/O AT BEDSIDE, FALL PRECAUTIONS IN PLACE
[2020-05-22 21:38] VITALS: BP 117/54
--- NOTE | 2020-05-22 21:41 | NUR ---
ADM 2100 MEDS AND MELATONIN PER MD ORDERS, SEE EMAR, PT DENIES NEEDS, FALL PRECAUTIONS IN PLACE
--- NOTE | 2020-05-22 23:00 | NUR ---
PT RESTING WITH EYES CLOSED, RESP QUIET, NO DISTRESS NOTED, LEFT UNDISTURBED AT THIS TIME, FALL PRECAUTIONS IN PLACE
--- NOTE | 2020-05-23 00:05 | NUR ---
PT MEDICAL INFORMATION SPECIALIST LIGHT, REQUESTED AND PROVIDED BRIEF, HAD SLIGHT ACCIDENT, PT TO BR, CHANGED BRIEF, BACK TO BED
--- NOTE | 2020-05-23 01:33 | NUR ---
PT RESTING WITH EYES CLOSED, RESP QUIET, NO DISTRESS NOTED, LEFT UNDISTURBED AT THIS TIME, FALL PRECAUTIONS IN PLACE
--- NOTE | 2020-05-23 03:44 | NUR ---
PT RESTING WITH EYES CLOSED, RESP QUIET, NO DISTRESS NOTED, LEFT UNDISTURBED AT THIS TIME, FALL PRECAUTIONS IN PLACE
--- NOTE | 2020-05-23 06:10 | NUR ---
PT AROUSES TO ME IN ROOM, ADM 0600 MEDS PER MD ORDERS, SEE EMAR, PT DENIES NEEDS AT THIS TIME
--- NOTE | 2020-05-23 08:31 | NUR ---
PT WITH PT/OT,BREAKFAST ON TRAY, NO NEEDS NOTED, FALL PRECAUTIONS IN PLACE, FLUIDS/CALL LIGHT WITHIN REACH
[2020-05-23 08:51] VITALS: BP 129/61
--- NOTE | 2020-05-23 19:20 | NUR ---
PM ROUNDS MADE, INFORMED PT THAT I WILL BE BACK SHORTLY TO DO ASSESSMENT, PT VERBALIZES UNDERSTANDING, DENIES NEEDS AT THIS TIME
--- NOTE | 2020-05-23 20:30 | NUR ---
PT JUST GETTING BACK FROM BR, TO BED, DENIES NEEDS AT THIS TIME
[2020-05-23 21:50] VITALS: BP 106/44
--- NOTE | 2020-05-23 21:52 | NUR ---
ADM 2100 MEDS PER MD ORDERS, SEE EMAR, SHIFT ASSESSMENT PER FLOW SHEET, PT REQUESTS PAIN PILL, ADM PAIN MED, SEE EMAR, PT DENIES FURTHER NEEDS AT THIS TIME
--- NOTE | 2020-05-23 23:30 | NUR ---
PT C/O OTHER SOCKS, SOCKS CHANGED, PT STATES "THOSE FEEL MUCH BETTER", DENIES FURTHER NEEDS OR PAIN AT THIS TIME
--- NOTE | 2020-05-24 01:30 | NUR ---
PT RESTING WITH EYES CLOSED, RESP QUIET, NO DISTRESS NOTED, LEFT UNDISTURBED AT THIS TIME, FALL PRECAUTIONS IN PLACE
--- NOTE | 2020-05-24 03:33 | NUR ---
PT RESTING WITH EYES CLOSED, RESP QUIET, NO DISTRESS NOTED, LEFT UNDISTURBED AT THIS TIME, FALL PRECAUTIONS IN PLACE
--- NOTE | 2020-05-24 05:10 | NUR ---
PT AWAKE, ADM 0600 MEDS PER MD ORDERS, DENIES NEEDS OR PAIN AT THIS TIME, FALL PRECAUTIONS IN PLACE
[2020-05-24] MEDS ORDERED: K-DUR20 MEQ PO (08:01)
[2020-05-24] MEDS ORDERED: HYDROCODON-ACE1 EAC7 PO (08:01)
[2020-05-24 08:20] VITALS: BP 134/63
[2020-05-24 09:38] LABS: HEMOGLOBIN 10.8 g/dL (12-16); IMMATURE GRANULOCYTES 0.8 % (0-5); MCH 29.1 pg (26.0-34.0); MCHC 31.8 g/dL (31.0-37.0); MCV 91.6 fL (80.0-100.0); MONOCYTES 7.6 % (2-11); NEUTROPHILS 41.6 % (40-80); PLATELET COUNT 282 10x3/uL (130-400); RBC 3.71 10x6/uL (4.00-5.40); RDW 14.9 % (11.5-14.5); WBC 7.7 10x3/uL (4.8-10.8)
[2020-05-24 09:53] LABS: ANION GAP 10.9 mmol/L (8-16); CALCIUM 8.9 mg/dL (8.5-10.1); CARBON DIOXIDE 26.3 mmol/L (21.0-32.0); POTASSIUM - SERUM 4.2 mmol/L (3.5-5.1)
--- NOTE | 2020-05-24 10:59 | NUR ---
PATIENT DISCHARGING HOME TODAY WITH FAMILY. PATIENT DECLINES HOME HEALTH AND WILL GO TO OUTPATIENT THERAPY PER DAUGHTER REQUEST. NO NEW DME NEEDED AT THIS TIME.DR. SOUSA 05/29/20 @ 1:00, DR. PEREZ 06/07/20 @ 9:40. ALEXANDR SIGNED, IMM SERVED AND EXPLAINED, ONE GIVEN TO PATIENT AND ONE FILED IN CHART. DISCHARGE INSTRUCTIONS FAXED TO PCP AND REVIEWED WITH PATIENT AND DAUGHTER.
== END 2020-05-24 18:19 | disposition home or self-care (01) | DRG 560 ==
LOC: D.REHAB 18:30
PROVIDERS: ADMIT Emergency Medicine; ATTEND Emergency Medicine
DX: S72.001D Fracture of unspecified part of neck of right femur, subsequent encounter for closed fracture with routine healing (principal); E87.1 Hypo-osmolality and hyponatremia; W19.XXXD Unspecified fall, subsequent encounter; R53.1 Weakness; I48.91 Unspecified atrial fibrillation; D64.9 Anemia, unspecified; E87.6 Hypokalemia; I10 Essential (primary) hypertension; E78.5 Hyperlipidemia, unspecified; E03.9 Hypothyroidism, unspecified; I25.10 Atherosclerotic heart disease of native coronary artery without angina pectoris; I25.5 Ischemic cardiomyopathy; R53.83 Other fatigue; N28.9 Disorder of kidney and ureter, unspecified; R06.02 Shortness of breath; M19.90 Unspecified osteoarthritis, unspecified site

== ENCOUNTER → 2021-05-25 08:50 | Outpatient (CLI) | payer MEDICARE, OTHER ==
[2020-05-13 12:33] VITALS: BMI 26.6
--- NOTE | ~2021-05-25 | EC ---
PATIENT:EDWIGE PALACIOS DATE OF SERVICE: 05/25/21 SEX: F MEDICAL RECORD: [id number] DATE OF : 38 [facility] AGE OF PATIENT: 81 ADMISSION DATE: 05/25/21 REFERRING PHYSICIAN: INTERPRETING PHYSICIAN: ULISSES JOE MD ECHOCARDIOGRAM REPORT ECHO CHARGES 4 ECHO COMPLETE Date: 05/25/21 CLINICAL DIAGNOSIS: AFIB, HTN ECHOCARDIOGRAPHIC MEASUREMENTS (adult normal given) AC root (d.<3.7cm) 2.8 cm LV Septum d (<1.2 cm> 0.8 cm Valve Excursion 1.5 cm LV Septum (systole) 1.2 cm Left Atria (s.<4.0cm> 4.6 cm LVPW d(<1.2cm) 1.1 cm RV (d.<2.3cm) 3.4 cm LVPW (sytole) 1.3 cm LV diastole(<5.6CM) 5.7 cm MV E-F(>70mm/sec) cm LV systole 3.8 cm LVOT Diameter 1.6 cm MV exc.(>10mm) 1.3 cm Est.ejection fraction (50-75%) % DOPPLER: LVIT cm/sec A 63 cm/sec E 54 cm/sec LA cm/sec RVSP 35 mmHg LVOT 101 cm/sec AOP1/2T m/s Asc. Ao 146 cm/sec RVOT 86 cm/sec RA cm/sec PA 51 cm/sec AV Gradient Peak 8.6 mmHg AV Mean 4.2 mmHg AV Area 1.5 cm MV Gradient Peak 2.6 mmHg MV Mean 1.0 mmHg MV Area cm COMMENTS: Bicycle Designer: Faby MEDRANO Certified Tower Climber: 3 Dr. Mcghee TAPE# Pericardial Effusion N DATE OF SERVICE: Adequate 2D, color-flow imaging, spectral Doppler, and M-Mode FINDINGS: No LVH. LV internal dimensions are upper limits of normal 5.7 cm. LV wall motion is normal. EF is greater than or equal to 55%. Aortic valve sclerosis without stenosis by Doppler interrogation. Left atrium dilated at 4.6 cm. Mitral valve shows no prolapse. Mild MR. Right-sided chambers are grossly normal. Trace TR. ECHOCARDIOGRAM REPORT [id number] EDWIGE PALACIOS TRANSINT:[id number] Voice Confirmation ID: [id number] DOCUMENT ID: [id number] ULISSES JOE MD CC: [id number] DICTATION DATE: 05/29/21 1358 CURTAIN SUPERVISOR: 05/29/21 2221 DEP CLI 05/25/21 [place] [id number] [place] [id number]
[~2021-05-25 08:50] MED LIST changes: +K-DUR20 MEQ PO
== END | disposition home or self-care (01) ==
LOC: D.HCCECHO 02-22 11:30
PROVIDERS: ATTEND Internal Medicine Interventional Cardiology
DX: I10 Essential (primary) hypertension (principal)